=== PATIENT | female | born 1975 | race Caucasian/White ===

== ENCOUNTER 2018-06-08 11:02 | Emergency (ER) | payer BC, SELFPAY ==
[2018-06-08 11:07] VITALS: BP 129/82; PULSE 79; RESP 16; TEMP 36.4; O2SAT 98
--- NOTE | 2018-06-08 11:18 | ED.GENADUL ---
Disposition Clinical Impression: Abscess of vagina Disposition: HOME Condition: Stable Instructions: Abscess (ED) Additional Instructions: Keep area clean and dry. Flush area with water 2-3 times daily. Wear sanitary pad daily. Wear cotton underwear. Apply Neosporin or antibiotic ointment to area 2 times daily. Follow-up with your primary care doctor within the next week as needed. Return to the emergency department with any worsening or new concerning symptoms. Medical Decision Making - Medical Decision Making 42-year-old female who presents with an approximately 4 x 4 mm tender raised flesh-colored papule on the right labial minora located deep medially close to the vaginal opening. This appears consistent with either an infected cyst, abscess, or local reaction that became infected status post an insect bite. This is very small and does not appear consistent with a Bartholin's gland cyst. Patient states her symptoms started after what she thought was a bite after using a naida potty. I explained to patient that as this is located deep within, it would be unlikely that it could be an insect bite but this certainly could be possible and became secondarily infected. There does not appear to be any surrounding induration or fluctuance. I placed approximately 2 cc of lidocaine 1% without epi around the area and placed 2 puncture wounds with 18-gauge needle with minimal amounts of yellow pus drainage. I further expressed serous and bloody drainage and irrigated the area with saline and covered with bacitracin. I encouraged patient to wear cotton breathable underwear and clothing, keep the area clean and dry, irrigate with water and cover with antibiotic ointment 2-3 times daily. She was instructed to follow-up with her primary care doctor next week for reevaluation and return here if worse. History of Present Illness - General Chief complaint: Cellulitis Stated complaint: UNKNOWN Time Seen by Provider: 06/08/18 11:03 Source: patient Mode of arrival: ambulatory Limitations: no limitations - History of Present Illness Initial comments: Patient is a 42-year-old female presents to the ER with complaint of pain in the R vaginal area for the past 2 days. Patient states she was sitting on a naida potty at work 4 days ago when she thought she felt a bite in her vaginal area. States since then she has developed a bump which has become larger and more painful. She denies any difficulty urinating, vaginal discharge, abdominal pain or fever. She has not used any treatment to this area. - Related Data Acetaminophen [Acetaminophen Extra Strength] 1,000 mg PO TID #90 tablet 02/21/18 Ibuprofen 600 mg PO QID PRN #120 tab-cap 02/21/18 Omeprazole 20 mg PO DAILY #30 tab-cap 04/24/18 Pramipexole Di-HCl [Pramipexole Dihydrochloride] 0.125 mg PO ONCE #30 tab-cap 04/24/18 Allergies Allergy/AdvReac Type Severity Reaction Status Date / Time nabumetone Allergy Intermediate swelling,ra Unverified 06/08/18 11:10 sh doxycycline AdvReac Intermediate VOMITING Unverified 06/08/18 11:10 hydrocodone AdvReac Intermediate VOMITING Unverified 06/08/18 11:10 morphine AdvReac Intermediate vomiting Unverified 06/08/18 11:10 Review of Systems Constitutional: denies: chills, fever Eyes: denies: eye pain ENT: denies: ear pain, throat pain, dental pain Respiratory: denies: cough, shortness of breath Cardiovascular: denies: chest pain, dyspnea on exertion Gastrointestinal: denies: abdominal pain, nausea, vomiting Genitourinary: denies: urgency, dysuria, frequency Musculoskeletal: denies: back pain Skin: lesions. denies: rash Neurological: denies: headache, weakness, numbness Past Medical History - Past Medical History Medical history: diabetes (borderline), GERD, hypertension wpw Surgical history: appendectomy, bilateral tubal ligation, other (carpal tunnel release) - Social History Smoking status: current everyday smoker Alcohol use: occasionally Drug use: none General Exam - General Limitations: no limitations General appearance: alert, in no apparent distress - Eye Eye exam: Present: EOMI - Respiratory Respiratory exam: Present: normal lung sounds bilaterally. Absent: respiratory distress, wheezes, rales, rhonchi, stridor - Cardiovascular Cardiovascular Exam: Present: regular rate, normal rhythm. Absent: bradycardia, tachycardia - GI/Abdominal GI/Abdominal exam: Present: soft, normal bowel sounds. Absent: distended, tenderness, guarding, rebound, rigid - External exam: Present: other (There is an approximate 4 x 4 millimeter area of tender raised flesh-colored papule with sebum noted in center located deep medially in the right labia minora. There is no surrounding erythema, fluctuance, induration.) - Neurological Exam Neurological exam: Present: alert, oriented X3 - Psychiatric Psychiatric exam: Present: normal affect - Skin Skin exam: Present: warm, dry, intact Course Vital Signs - 24 hr 06/08/18 11:07 Temperature 97.5 F L Pulse 79 Respiratory 16 Rate Blood Pressure 129/82 Pulse Oximetry 98
== END 2018-06-08 12:09 | disposition home or self-care (01) ==
PROVIDERS: Emergency Provider Physician Assistant; PCP Family Medicine
DX: N76.4 Abscess of vulva (principal); I10 Essential (primary) hypertension; E11.9 Type 2 diabetes mellitus without complications
CPT/HCPCS: 10160

== ENCOUNTER 2018-06-09 10:22 | Emergency (ER) | payer BC, SELFPAY ==
[2018-06-09 10:36] VITALS: BP 145/99; PULSE 85; RESP 16; TEMP 37; O2SAT 98
--- NOTE | 2018-06-09 10:53 | ED.GENADUL ---
Disposition Clinical Impression: Furuncle of vulva Disposition: HOME Condition: Stable Instructions: Furunculosis and Carbunculosis (ED), Abscess Incision and Drainage (GEN) Additional Instructions: Keep area clean and dry. Irrigate the area with water and apply antibiotic ointment and cover with gauze and pad 2 times daily. Wear cotton underwear and pants. Follow-up with your primary care doctor in 1 week for reevaluation. Follow-up with surgery if symptoms persist for removal possible cyst. Return to the emergency department any worsening or new concerning symptoms. Medical Decision Making - Medical Decision Making 42-year-old female who presents for re-evaluation of small furuncle noted in inner labia minora that she has had for the past few days and for which she was seen initially for here yesterday. Yesterday, patient had puncture with an 18-gauge needle to drain the area and small amount of pus was expressed. The area is extremely small and compares to the size of the pea. Yesterday it appeared more c/w a furuncle and today notes no pustule or white discoloration and is mainly raised and skin colored and mildly tender. Overall the area appears improved since yesterday. As there was only a puncture wound placed yesterday in are, the area likely closed and still with inflammation. There is no fluctuance or induration so I doubt that it has filled with pus at this time as it appears overall improved. Patient is concerned that it did appear flat yesterday and is now raised again. She has no fever and appears nontoxic. Explained to patient that this area may be a cyst that may recur until excised. Also explained that this may just be local inflammation that may heal with time. She is requesting that it be opened to help drain. Area was anesthetized with 5 cc of lidocaine 1% without epi. A 3 mm incision was placed in center and bloody drainage was expressed. There was no pus drainage. She admits to improvement of pain. Area was irrigated with normal saline, bacitracin applied, covered with wet-to-dry dressings and an ABD pad. Patient was instructed to follow-up with her primary care doctor and for referral to surgery if worse or if persists. She was instructed to return with any concerns. History of Present Illness - General Chief complaint: Recheck Stated complaint: RECHECK Time Seen by Provider: 06/09/18 10:53 Source: patient Mode of arrival: ambulatory Limitations: no limitations - History of Present Illness Initial comments: Patient is a 42-year-old female who presents for painful lump on the inner vagina for the past few days. Patient was seen here yesterday for same and had puncture with needle with relief. Patient states the area drained until last night when it filled back up again and now has return of pain. She denies any fever, abdominal pain. She applied warm compresses to area yesterday. - Related Data Acetaminophen [Acetaminophen Extra Strength] 1,000 mg PO TID #90 tablet 02/21/18 Ibuprofen 600 mg PO QID PRN #120 tab-cap 02/21/18 Omeprazole 20 mg PO DAILY #30 tab-cap 04/24/18 Pramipexole Di-HCl [Pramipexole Dihydrochloride] 0.125 mg PO ONCE #30 tab-cap 04/24/18 Allergies Allergy/AdvReac Type Severity Reaction Status Date / Time nabumetone Allergy Intermediate swelling,ra Unverified 06/09/18 10:38 sh doxycycline AdvReac Intermediate VOMITING Unverified 06/09/18 10:38 hydrocodone AdvReac Intermediate VOMITING Unverified 06/09/18 10:38 morphine AdvReac Intermediate vomiting Unverified 06/09/18 10:38 Review of Systems Constitutional: denies: chills, fever Eyes: denies: eye pain ENT: denies: ear pain, dental pain Respiratory: denies: cough, shortness of breath Cardiovascular: denies: chest pain, dyspnea on exertion Gastrointestinal: denies: abdominal pain, nausea, vomiting Genitourinary: denies: urgency, dysuria, frequency Musculoskeletal: denies: back pain Skin: lesions. denies: rash Neurological: denies: headache, weakness, numbness Past Medical History - Past Medical History Medical history: diabetes (borderline), GERD, hypertension wpw Surgical history: appendectomy, bilateral tubal ligation, other (carpal tunnel release) - Social History Smoking status: current everyday smoker Alcohol use: occasionally Drug use: none General Exam - General Limitations: no limitations General appearance: alert, in no apparent distress - Eye Eye exam: Present: EOMI - Respiratory Respiratory exam: Absent: respiratory distress - Cardiovascular Cardiovascular Exam: Present: regular rate - External exam: Present: other (Small pea-sized furuncle noted on right inner labia majora. It is approximately 4 x 4 mm. There is no fluctuance. There is induration. There is no white discoloration or pustule noted. No active drainage or bleeding. No surrounding erythema, edema.) Course Vital Signs - 24 hr 06/09/18 10:36 Temperature 98.6 F Pulse 85 Respiratory 16 Rate Blood Pressure 145/99 Pulse Oximetry 98
[2018-06-09 10:59] VITALS: BP 145/99; PULSE 85; RESP 16; TEMP 37; O2SAT 98
== END 2018-06-09 10:59 | disposition home or self-care (01) ==
PROVIDERS: Emergency Provider Physician Assistant; PCP Family Medicine
DX: N76.4 Abscess of vulva (principal); E11.9 Type 2 diabetes mellitus without complications; I10 Essential (primary) hypertension
CPT/HCPCS: 10060

== ENCOUNTER 2018-07-14 22:19 | Emergency (ER) | payer BC, SELFPAY ==
[2018-07-14] VITALS (14 sets, daily range): BP systolic 110–137; BP diastolic 51–83; PULSE 64–87; RESP 11–23; TEMP 36.1; O2SAT 95–99
--- NOTE | 2018-07-14 22:36 | W.ED.GENAD ---
Discharge Plan Disposition Patient Disposition: HOME Condition: Good Discharge Details Chief Complaint: Chest Pain Clinical Impression: Spasm of cervical paraspinous muscle Reason For Visit: SOB Primary Care Provider: Arcelia Elizondo ED Provider: Jak Faulkner Home Meds and New Rx's Prescriptions: New methocarbamol 500 mg tablet 500 mg PO Q6H PRN (Reason: pain and spasm) Qty: 10 RF: 0 No Action No Known Home Meds RF: 0 Discharge Instructions Instructions: Muscle Spasm (ED) Additional Instructions: Home to rest this evening. May use Methocarbamol as needed, as instructed, for muscular pain and spasm. We will ask our care management team to assist in making you a followup appointment in Cardiology clinic for recheck. Return to the ER for recurrent pain, difficulty breathing or any other concerns. Medical Decision Making MDM Narrative Medical decision making narrative: This is a 42-year-old female smoker with a history of Qiwwm-Whtgjleuc-Fybmz syndrome. She states she recent underwent cardiac monitoring and has been referred for further opinion. The patient presented today with hours of right anterior chest pain radiating to her neck is reproducible upon exam. Differential diagnosis is broad including ACS, pulmonary embolism, musculoskeletal discomfort. Patient had IV access established, was placed on practice specialist, referred for laboratory testing including troponin, d-dimer as well as chest x-ray. She was given ketorolac and 0.5 mg Ativan Diagnostic studies are reassuring with unremarkable chest x-ray. Patient's EKG is unchanged. Her troponin and d-dimer are negative. Patient was observed further for 3 hours on the monitor with repeat troponin obtained. 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 She has not had complaints of tachycardia, palpitations or syncope. Do not feel she requires admission for evaluation of underlying structural heart disease. Medical Records Medical records reviewed: Yes I reviewed the patient's medical records. Reviewed Holter monitor report from May 13. Shows short [place] interval with delta wave present, likely representing sinus rhythm with short [place]. No evidence of SVT, VT, or A. fib. Lab Data Lab results reviewed: Yes I reviewed the patient's lab results. ECG Data Attestation: I personally reviewed and interpreted this ECG (s) as follows: Prior ECG tracings: available for review Interpretation: Sinus rhythm, rate of 80, short [place], probable delta wave present. The QRS is wide with intraventricular conduction delay. There is repolarization abnormalities of ST segments that are unchanged versus comparison dated November 2007 HPI - General Adult General Mode of arrival: ambulatory. Date/Time Provider Initiated Documentation: 07/14/18 22:19. Limitations to Documentation: no limitations. Information obtained by: patient. History of Present Illness 42 year old F presents to the emergency department with the chief complaint of Chest pain, described as moderate, Quality is described as aching, and is localized to the chest and right. Patient neck. Patient started experiencing this hour(s) and it has been constant. No relieving factors improve symptom(s), No exacerbating factors reported . Patient notes cough. HPI Narrative: This is a 42-year-old female smoker who states that while cooking dinner this evening she developed right anterior sharp chest pain that radiates to her neck. She has a cough with production of sputum that she states unchanged. She has not had a fever. She has not had any lower extremity pain or swelling. Related Data Home Medications Medication Instructions Recorded Confirmed Unknown [No Known Home Meds] 07/14/18 07/14/18 Previous Rx's Medication Instructions Recorded methocarbamol 500 mg PO Q6H PRN #10 tab 07/15/18 Allergies Allergy/AdvReac Type Severity Reaction Status Date / Time nabumetone Allergy Intermediate swelling,ra Unverified 07/14/18 22:32 sh doxycycline AdvReac Intermediate VOMITING Unverified 07/14/18 22:32 hydrocodone AdvReac Intermediate VOMITING Unverified 07/14/18 22:32 morphine AdvReac Intermediate vomiting Unverified 07/14/18 22:32 General Stated Complaint: Chest Pain MARGO: 2 Review of Systems Review of Systems 8 systems reviewed and otherwise negative [facility] Family History Mother Diabetes Essential hypertension Hyperlipidemia Father Diabetes Alcohol abuse Depression Heart disease Hyperlipidemia Neoplasm Cerebrovascular accident Brother Diabetes Essential hypertension Depression Grandfather Heart disease Cerebrovascular accident Grandfather Diabetes Essential hypertension Heart disease Hyperlipidemia Grandmother Diabetes Grandmother Diabetes Essential hypertension Heart disease Maternal Aunt Neoplasm Sister No problems noted. Sister Depression Brother Diabetes Hyperlipidemia Daughter No problems noted. MATERNAL HISTORY Neoplasm PATERNAL HISTORY Neoplasm Social History Smoking/Tobacco Use Status: Former Tobacco Use Surgical History Appendectomy Cervical Procedure Endometrial Ablation Ligation of fallopian tube Open Carpal Tunnel release Ulnar Nerve Transposition Exam Narrative Exam Narrative: GEN: awake, alert, oriented 3. Pleasant, well groomed, interactive. Mildly anxious. HEAD: Normocephalic, atraumatic ENT: Mucous membranes moist, oropharynx unremarkable, External ear exam unremarkable EYES: PERRL, EOMI NECK: Full ROM, no LINDA, no menigismus. Right anterior sternocleidomastoid is tender and in mild spasm peer CHEST/RESP: Right anterior chest wall tender. No rash, clear to auscultation bilateral, no wheeze/rhonchi/rales CARDIOVASCULAR: RRR, no murmur, rub siomara. 2+ Rad pulse bilateral ABDOMEN: Soft, nontender, no mass. +Bowel sounds EXT: Full ROM, no edema, no rash Neuro: Grossly normal neurologic exam, conversant, interactive. Psych: Speech fluent, thoughts congruent, affect anxious Course Vital Signs Temperature 36.1 C L 07/14/18 22:25 Pulse 87 07/14/18 22:25 Respiratory Rate 15 07/14/18 22:25 Blood Pressure 137/80 07/14/18 22:25 Pulse Oximetry 98 07/14/18 22:25 Temperature 36.1 C L 07/14/18 22:25 Pulse 87 07/14/18 22:25 Respiratory Rate 14 07/14/18 22:27 Blood Pressure 137/80 07/14/18 22:25 Pulse Oximetry 98 07/14/18 22:25
--- NOTE | 2018-07-14 22:40 | ED.GENADUL_ITS ---
Discharge Plan Disposition Patient Disposition: HOME Condition: Good Discharge Details Chief Complaint: Chest Pain Clinical Impression: Spasm of cervical paraspinous muscle Reason For Visit: SOB Primary Care Provider: Arcelia Elizondo ED Provider: Jak Faulkner Home Meds and New Rx's Prescriptions: New methocarbamol 500 mg tablet 500 mg PO Q6H PRN (Reason: pain and spasm) Qty: 10 RF: 0 No Action No Known Home Meds RF: 0 Discharge Instructions Instructions: Muscle Spasm (ED) Additional Instructions: Home to rest this evening. May use Methocarbamol as needed, as instructed, for muscular pain and spasm. We will ask our care management team to assist in making you a followup appointment in Cardiology clinic for recheck. Return to the ER for recurrent pain, difficulty breathing or any other concerns. Medical Decision Making MDM Narrative Medical decision making narrative: This is a 42-year-old female smoker with a history of Modee-Bljjtptmx-Ztgwh syndrome. She states she recent underwent cardiac monitoring and has been referred for further opinion. The patient presented today with hours of right anterior chest pain radiating to her neck is reproducible upon exam. Differential diagnosis is broad including ACS, pulmonary embolism, musculoskeletal discomfort. Patient had IV access established, was placed on complaint inspector, referred for laboratory testing including troponin, d-dimer as well as chest x-ray. She was given ketorolac and 0.5 mg Ativan Diagnostic studies are reassuring with unremarkable chest x-ray. Patient's EKG is unchanged. Her troponin and d-dimer are negative. Patient was observed further for 3 hours on the monitor with repeat troponin obtained. 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 She has not had complaints of tachycardia, palpitations or syncope. Do not feel she requires admission for evaluation of underlying structural heart disease. Medical Records Medical records reviewed: Yes I reviewed the patient's medical records. Reviewed Holter monitor report from May 13. Shows short [place] interval with delta wave present, likely representing sinus rhythm with short [place]. No evidence of SVT, VT, or A. fib. Lab Data Lab results reviewed: Yes I reviewed the patient's lab results. ECG Data Attestation: I personally reviewed and interpreted this ECG (s) as follows: Prior ECG tracings: available for review Interpretation: Sinus rhythm, rate of 80, short [place], probable delta wave present. The QRS is wide with intraventricular conduction delay. There is repolarization abnormalities of ST segments that are unchanged versus comparison dated November 2007 HPI - General Adult General Mode of arrival: ambulatory . Date/Time Provider Initiated Documentation: 07/14/18 22:19 . Limitations to Documentation: no limitations . Information obtained by: patient . History of Present Illness 42 year old F presents to the emergency department with the chief complaint of Chest pain, described as moderate, Quality is described as aching, and is localized to the chest and right. Patient neck. Patient started experiencing this hour(s) and it has been constant. No relieving factors improve symptom(s), No exacerbating factors reported . Patient notes cough. HPI Narrative: This is a 42-year-old female smoker who states that while cooking dinner this evening she developed right anterior sharp chest pain that radiates to her neck. She has a cough with production of sputum that she states unchanged. She has not had a fever. She has not had any lower extremity pain or swelling. Related Data Home Medications Medication Instructions Recorded Confirmed Unknown [No Known Home Meds] 07/14/18 07/14/18 Previous Rx's Medication Instructions Recorded methocarbamol 500 mg PO Q6H PRN #10 tab 07/15/18 Allergies Allergy/AdvReac Type Severity Reaction Status Date / Time nabumetone Allergy Intermediate swelling,ra Unverified 07/14/18 22:32 sh doxycycline AdvReac Intermediate VOMITING Unverified 07/14/18 22:32 hydrocodone AdvReac Intermediate VOMITING Unverified 07/14/18 22:32 morphine AdvReac Intermediate vomiting Unverified 07/14/18 22:32 General Stated Complaint: Chest Pain MARGO: 2 Review of Systems Review of Systems 8 systems reviewed and otherwise negative [facility] Family History Mother Diabetes Essential hypertension Hyperlipidemia Father Diabetes Alcohol abuse Depression Heart disease Hyperlipidemia Neoplasm Cerebrovascular accident Brother Diabetes Essential hypertension Depression Grandfather Heart disease Cerebrovascular accident Grandfather Diabetes Essential hypertension Heart disease Hyperlipidemia Grandmother Diabetes Grandmother Diabetes Essential hypertension Heart disease Maternal Aunt Neoplasm Sister No problems noted. Sister Depression Brother Diabetes Hyperlipidemia Daughter No problems noted. MATERNAL HISTORY Neoplasm PATERNAL HISTORY Neoplasm Social History Smoking/Tobacco Use Status: Former Tobacco Use Surgical History Appendectomy Cervical Procedure Endometrial Ablation Ligation of fallopian tube Open Carpal Tunnel release Ulnar Nerve Transposition Exam Narrative Exam Narrative: GEN: awake, alert, oriented 3. Pleasant, well groomed, interactive. Mildly anxious. HEAD: Normocephalic, atraumatic ENT: Mucous membranes moist, oropharynx unremarkable, External ear exam unremarkable EYES: PERRL, EOMI NECK: Full ROM, no LINDA, no menigismus. Right anterior sternocleidomastoid is tender and in mild spasm peer CHEST/RESP: Right anterior chest wall tender. No rash, clear to auscultation bilateral, no wheeze/rhonchi/rales CARDIOVASCULAR: RRR, no murmur, rub siomara. 2+ Rad pulse bilateral ABDOMEN: Soft, nontender, no mass. +Bowel sounds EXT: Full ROM, no edema, no rash Neuro: Grossly normal neurologic exam, conversant, interactive. Psych: Speech fluent, thoughts congruent, affect anxious Course Vital Signs Temperature 36.1 C L 07/14/18 22:25 Pulse 87 07/14/18 22:25 Respiratory Rate 15 07/14/18 22:25 Blood Pressure 137/80 07/14/18 22:25 Pulse Oximetry 98 07/14/18 22:25 Temperature 36.1 C L 07/14/18 22:25 Pulse 87 07/14/18 22:25 Respiratory Rate 14 07/14/18 22:27 Blood Pressure 137/80 07/14/18 22:25 Pulse Oximetry 98 07/14/18 22:25
[2018-07-14 22:48] LABS: Abs Immature Grans 0.03 k/cumm (0.0-0.09); Absolute Basophil Count 0.03 k/cumm (0.0-0.2); Absolute Eosinophil Count 0.24 k/cumm (0.0-0.7); Absolute Lymphocyte Count 3.26 k/cumm (1.2-3.4); Absolute Monocyte Count 0.63 k/cumm (0.11-0.7); Basophils % 0.3; Eosinophils % 2.2; HCT 39.7 % (36.0-46.0); HGB 13.6 g/dL (12.0-15.5); Immature Grans % 0.3; Lymphocytes % 29.7; Mean Corp. HGB Concentration 34.3 g/dL (32.0-36.0); Mean Corpuscular Hemoglobin 30.6 pg (27.0-33.0); Mean Corpuscular Volume 89.4 fL (80-95); Mean Platelet Volume 10.8 fL (8.0-11.0); Monocytes % 5.7; Neutrophils % 61.8; Platelet Count 238 x1000/uL (130-400); RBC 4.44 m/cumm (4.00-5.20); RBC Distribution Width 13.2 % (11.7-14.6); White Blood Cell Count 10.99 k/cumm (4.4-10.8)
[2018-07-14] MEDS: Normal Saline 1,000 ML 125 ML IV (22:58)
[2018-07-14] MEDS: LORazepam 2 MG/ML VIAL 0.5 MG IVP (22:58)
[2018-07-14 22:59] LABS: ALT 29 U/L (12-78); AST 18 U/L (15-37); Albumin 3.6 g/dL (3.4-5.0); Alkaline Phosphatase 58 U/L (46-116); Anion Gap 10.8 mmol/L (3-11); BUN 17 mg/dL (7-18); Bilirubin, Total 0.2 mg/dL (0.2-1.0); CO2 25.2 mmol/L (21.0-32.0); CREATININE 0.93 mg/dL (0.55-1.02); Calcium 9.3 mg/dL (8.5-10.1); Chloride 103 mmol/L (98-107); Glucose 141 mg/dL (70-100); Sodium 139 mmol/L (136-145); Total Protein 7.6 g/dL (6.4-8.2)
[2018-07-14 23:02] LABS: Absolute Neutrophil Count 6.79 k/cumm (1.2-6.7); Troponin I < 0.02 ng/mL (0.00-0.06)
[2018-07-14] MEDS: Normal Saline Flush 10 ML SYR IVP (23:05)
--- NOTE | 2018-07-14 23:09 | DI.RAD_ITS ---
SYMPTOM/DIAGNOSIS: RT CHEST PAIN PA AND LATERAL CHEST: Comparison is made with 28 September 2017. The cardiac and mediastinal contours have a normal appearance. The lungs are suboptimally inflated but appear clear. No infiltrate or effusion is seen. There is no evidence of pneumothorax. IMPRESSION: No acute abnormality.
[2018-07-14 23:17] LABS: D-Dimer 232 ng/mlFEU (<500)
--- NOTE | 2018-07-14 23:54 | DI.VRAD_ITS ---
EXAM: XR Chest, 2 Views CLINICAL HISTORY: 42 years old, female; Signs and symptoms; Other: Right chest pain TECHNIQUE: Frontal and lateral views of the chest. COMPARISON: CR - CHEST 2 VIEWS PA,LAT 09/28/2017 11:06 AM FINDINGS: Lungs: Low lung volumes. No airspace consolidation. Pleural space: No focal pathology. No pneumothorax. Heart: No focal pathology. No cardiomegaly. Mediastinum: Unremarkable. Bones/joints: Unremarkable. IMPRESSION: Negative low volume study. Dictated and Authenticated by: Lalitha Platt MD. Ordering:STAR FREIRE MD
[2018-07-15] VITALS (20 sets, daily range): BP systolic 90–110; BP diastolic 47–67; PULSE 59–90; RESP 15–26; O2SAT 95–98
[2018-07-15] MEDS: Ketorolac 30 MG/ML VIAL IVP
[2018-07-15 00:13] LABS: Bilirubin Negative (Negative); Blood Negative (Negative); Clarity Clear; Glucose Negative (Negative); Ketones Negative (Negative); Leukocyte Esterase Negative (Negative); Nitrite Negative (Negative); Specific Gravity 1.015 (1.005-1.025)
[2018-07-15 01:36] LABS: Troponin I < 0.02 ng/mL (0.00-0.06)
[2018-07-15] MEDS: Methocarbamol 500 MG TAB PO (01:51)
--- NOTE | 2018-07-15 09:55 | CMPROGNOTE_ITS ---
Care Management Progress Note 07/15/18-Pt seen on 07/14/18 in ED for chest pain . Was seen by Dr. Carmine Faulkner. F ?u requested for Cardiology. CM contacted Cardiology and spoke with Jael who is working pt into schedule at the end of this month as they are booked. A referral has been sent to Pt's PCP, Wil Turner at [facility] for f/u this week.
== END 2018-07-15 02:23 | disposition home or self-care (01) ==
LOC: ER 07-15 02:06
PROVIDERS: Emergency Provider Emergency Medicine; PCP Family Medicine
DX: M62.838 Other muscle spasm (principal); I10 Essential (primary) hypertension; I45.6 Pre-excitation syndrome
CPT/HCPCS: 36415; 80053; 93005; 96361; 96374; 96375; 99285; 71046; 81003; 83735; 84484; 85025; 85379; 93010; 99284; J1885; J2060

== ENCOUNTER 2018-10-15 15:52 | Outpatient (CLI) | payer BC, SELFPAY ==
[2018-10-15 16:17] LABS: Abs Immature Grans 0.01 k/cumm (0.0-0.09); Absolute Basophil Count 0.03 k/cumm (0.0-0.2); Absolute Eosinophil Count 0.13 k/cumm (0.0-0.7); Absolute Lymphocyte Count 3.16 k/cumm (1.2-3.4); Absolute Monocyte Count 0.47 k/cumm (0.11-0.7); Absolute Neutrophil Count 3.85 k/cumm (1.2-6.7); Basophils % 0.4; Eosinophils % 1.7; HCT 44.3 % (36.0-46.0); HGB 15.2 g/dL (12.0-15.5); Immature Grans % 0.1; Lymphocytes % 41.3; Mean Corp. HGB Concentration 34.3 g/dL (32.0-36.0); Mean Corpuscular Hemoglobin 30.4 pg (27.0-33.0); Mean Corpuscular Volume 88.6 fL (80-95); Mean Platelet Volume 10.2 fL (8.0-11.0); Monocytes % 6.1; Neutrophils % 50.4; Platelet Count 294 x1000/uL (130-400); RBC Distribution Width 12.9 % (11.7-14.6); White Blood Cell Count 7.65 k/cumm (4.4-10.8)
[2018-10-15 16:19] LABS: Bilirubin Negative (Negative); Blood Trace-intact (Negative); Clarity Clear; Glucose Negative (Negative); Ketones Negative (Negative); Leukocyte Esterase Negative (Negative); Nitrite Negative (Negative); Specific Gravity 1.015 (1.005-1.025); pH 7.5 (5-8)
[2018-10-15 16:30] LABS: Bacteria Moderate HPF (Negative); C & S Indicated? No/Sq. Contamination; Casts Negative LPF (Negative); Crystals Negative HPF (Negative); Epithelial Cells Many HPF (Negative); Mucus Negative (Negative)
[2018-10-15 17:35] LABS: ALT 29 U/L (12-78); AST 20 U/L (15-37); Albumin 4.1 g/dL (3.4-5.0); Alkaline Phosphatase 58 U/L (46-116); Anion Gap 9.6 mmol/L (3-11); BUN 13 mg/dL (7-18); Bilirubin, Total 0.3 mg/dL (0.2-1.0); CO2 27.4 mmol/L (21.0-32.0); CREATININE 0.91 mg/dL (0.55-1.02); Calcium 9.6 mg/dL (8.5-10.1); Chloride 102 mmol/L (98-107); Glucose 96 mg/dL (70-100); Potassium 4.2 mmol/L (3.5-5.1); Sodium 139 mmol/L (136-145); Total Protein 7.7 g/dL (6.4-8.2)
[2018-10-15 17:43] LABS: TSH (W/Ref FT4) 1.19 uIU/mL (0.358-3.74)
== END 2018-10-15 16:12 ==
PROVIDERS: PCP Family Medicine; Visit Provider Family Medicine
DX: E67.1 Hypercarotenemia (principal)
CPT/HCPCS: 36415; 80053; 85027; 81003; 81015; 84443; 85025

== ENCOUNTER 2019-04-08 13:13 | Outpatient (CLI) | payer OTHER, SELFPAY ==
--- NOTE | 2019-04-08 09:30 | DI.COMBO_ITS ---
SYMPTOM/DIAGNOSIS: RT BREAST LUMP MAMMOGRAM AND RIGHT BREAST ULTRASOUND: Mammograms were interpreted according to the usual protocol including computer analysis with CAD system, tomosynthesis and C view imaging. Today's mammogram and right breast ultrasound are interpreted in conjunction. The patient reportedly has a questionable palpable abnormality of the upper outer quadrant of the right breast. Mammography shows heterogeneously dense breasts. No mass or clumped microcalcification is seen. Breast ultrasound shows no evidence of a mass or cyst in the region in question in the upper outer quadrant of the right breast. CONCLUSION: No specific evidence of malignancy at this time. Negative mammogram and ultrasound do not entirely exclude the possibility of malignancy and should not preclude biopsy of any clinically suspicious breast lesion. Category 1. Breast density, Category C. MQSA ASSESSMENT OF FINDINGS: Negative. Category 1. Patient will receive a letter notifying them of these results. Bi-RADS category C. The breasts are heterogeneously dense, which may obscure small masses.
== END 2019-04-08 13:33 ==
PROVIDERS: PCP Family Medicine; Visit Provider Family Medicine
DX: N63.11 Unspecified lump in the right breast, upper outer quadrant (principal)
CPT/HCPCS: 76642; 77062; 77066; G0279

== ENCOUNTER 2019-09-21 18:37 | Emergency (ER) | payer OTHER, SELFPAY ==
--- NOTE | 2019-09-21 18:40 | ED.GENADUL_ITS ---
Discharge Plan Disposition Patient Disposition: HOME Condition: Good Discharge Details Chief Complaint: Cellulitis Clinical Impression: Visit for wound check Primary Care Provider: Arcelia Elizondo ED Provider: Roberto Hoffman Home Meds and New Rx's Prescriptions: No Action citalopram 20 mg tablet 20 mg PO DAILY Qty: 30 RF: 6 Discharge Instructions Additional Instructions: At this time there is no evidence of significant infection. The black is from the silver nitrate cauterization that they did after the procedure to stop the bleeding. If you notice any significant redness, firmness in the skin, warmth, drainage, or any of the signs of infection that we talked about, return immediately for reassessment. If you notice any worsening of your symptoms, or any new symptoms such as vomiting, diarrhea, fever, chills, shortness of breath, chest pain, numbness, weakness, or fainting , please return immediately to the emergency department for reevaluation. Please follow up with your primary care and Dr. Swanson's office as soon as possible for reassessment and reevaluation. As always, it was a pleasure participating in your medical care today. Referrals: Arcelia Elizondo MD [Primary Care Provider] - Medical Decision Making This is a 43-year-old female who presents for postop wound check. Betsy goode had a lesion surgically shaved off by Dr. Swanson 3 days ago. Chemical cautery was used postoperatively to stop any bleeding. Reviewed the procedure notes from Dr. Swanson's office reveals no complications for the procedure or other abnormalities. Patient states that there is been some mild swelling and black and that she noticed over the last 3 days she was concerned that this may be infection. Physical exam demonstrates mild tattooing peripheral to the surgical incision site, then the small black eschar at the site of the excision itself. No evidence of fluctuance, drainage, or other significant abnormality. No redness, warmth, induration. Signs and symptoms are consistent with normal postop healing and clinically inconsistent with cellulitis, or infection. I spent a long time discussing with the patient concerning red flags which to return, the healing process postoperatively for this, and the importance of close follow-up with her ENT doctor Dr. Swanson. Discussed the recommendations for continued antibiotic ointment, and close monitoring. I have extensively reviewed the treatment plan and discharge instructions with the patient. I have addressed all patient concerns at this time. The patient was made aware of what symptoms to monitor for that would warrant a return to the emergency department. Discussed the plan with the patient, they demonstrate verbal understanding and agreement with our assessment and plan at this time. HPI General Date/Time Provider Initiated Documentation: 09/21/19 18:38 . HPI Narrative: This is a 43-year-old female who presents today for evaluation of wound check. 3 days ago she was at Dr. Swanson's office when he surgically removed a cyst from her right upper lip. Since then she noticed that there was a black spot which she has been picking at, and she felt that there is mild swelling mild redness. She denies any fever or chills. She denies any other complaints. She presents for evaluation of this. She denies any drainage. She denies any numbness tingling weakness. No other modifying factors. She is not on any antibiotics. She has not been taking any other medications. Related Data Home Medications Medication Instructions Recorded Confirmed citalopram 20 mg tablet 20 mg PO DAILY #30 tab 09/03/19 09/21/19 Previous Rx's Medication Instructions Recorded citalopram 20 mg tablet 20 mg PO DAILY #30 tab 09/03/19 Allergies Allergy/AdvReac Type Severity Reaction Status Date / Time nabumetone Allergy Intermediate swelling,ra Verified 09/21/19 18:45 sh doxycycline AdvReac Intermediate VOMITING Verified 09/21/19 18:45 hydrocodone AdvReac Intermediate VOMITING Verified 09/21/19 18:45 morphine AdvReac Intermediate vomiting Verified 09/21/19 18:45 General MARGO: 2 Review of Systems All systems reviewed & are unremarkable except as noted in HPI and below [facility] Medical History (Updated 04/01/19 @ 12:10 by Parker Clark) Atopic dermatitis (Acute) Surgical History (Updated 04/01/19 @ 12:10 by Parker Clark) Abnormal patient-activated cardiac event monitor (Acute) Internal Retail Business Analyst (NOT defibrillator or pacer) placed [facility] [place] 11/08/18 Appendectomy Cervical Procedure ovarian cyst-right Endometrial Ablation Ligation of fallopian tube Open Carpal Tunnel release 02/2018 (L) Ulnar Nerve Transposition 09/2017 Social History (Updated 04/08/19 @ 10:18 by Dorian Adame) Smoking/Tobacco Use Status: Current-Occasional Tobacco Type: cigarettes Tobacco: How many years used: 20 Quit status: considering quitting Second Hand Exposure: No Alcohol Intake: current Alcohol Intake frequency: holidays/special occasions only Alcohol type: hard liquor Drug use: Never Substance use type: does not use Caregiver/Support person: No Household members: spouse and other Details: Niece Communication Needs: None Do you need help understanding health information?: Never 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 Pets and animals: Yes Pets and animals: dog(s) Sexually active: No Do you think of yourself as: straight/heterosexual Current gender identity: female What is your relationship status?: How often do you talk on the phone with friends or family?: three or more times per week How often do you get together with friends or relatives?: decline to answer How often do you attend yazdanism or christianity services?: decline to answer Do you belong to any clubs or organized social groups?: no Panel score (0-1 are the most socially isolated patients): 2 What type of physical activity do you participate in: none and walking Duration: > 90 minutes/day Frequency: daily Tessie/Alevism: Buddhism Special tessie needs: No Seatbelt use: always Helmet use: Yes Helmet use: sometimes Drive intox or ride w/intox dairy 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 3.ENT: Atraumatic external nose and ears. Moist MM. Neck: Symmetric, trachea midline, No thyromegaly. Patient's right upper lip demonstrates a postoperative site appears to be well-healing. No surrounding erythema, no fluctuance, no ed irina or induration. No significant swelling. Evaluation from inside lip shows no evidence of abnormality leakage or drainage. The lesion is roughly 1 cm x 0.5 cm in diameter. There is a central black eschar secondary to chemical cauterization. The previous black tattooing he has been removed secondary to picking by the patient. No other abnormalities. No evidence of cellulitis abscess or infection. 4.CVS: +S1/S2, No murmurs or gallops. Peripheral pulses 2+ and equal in all extremities. Brisk capillary refill in all extremities. 5.RESP: Unlabored respiratory effort. Clear to auscultation bilaterally. No wheezes rales or rhonchi 6.GI: Soft, Nontender/Nondistended, No hepatosplenomegaly. No guarding or rebound. 7.MSK: Normocephalic/Atraumatic, Extremities w/o deformity or ttp No cyanosis or clubbing, Normal movement of all extremities 8.Skin: Warm, Dry. Please see ENT 9.Neuro: schedule supervisor II-XII grossly intact. Sensation grossly intact, no focal neurologic deficits. 10.Psych: (AAO) x3. Appropriate mood and affect
[2019-09-21 18:41] VITALS: BP 134/70; PULSE 74; RESP 16; TEMP 36.7; O2SAT 99
[2019-09-21 19:14] VITALS: PULSE 74; RESP 16; O2SAT 99
== END 2019-09-21 19:15 | disposition home or self-care (01) ==
PROVIDERS: Emergency Provider Student in an Organized Health Care Education/Training Program; PCP Family Medicine
DX: L03.211 Cellulitis of face (principal); Z98.890 Other specified postprocedural states
CPT/HCPCS: 99281

== ENCOUNTER 2019-12-02 08:05 | Outpatient (CLI) | payer OTHER, SELFPAY | END 2019-12-02 08:25 | PROVIDERS: PCP Family Medicine; Visit Provider Internal Medicine Cardiovascular Disease | DX: I45.6 Pre-excitation syndrome (principal) | CPT/HCPCS: 93005; 93010 ==

== ENCOUNTER 2019-12-30 01:26 | Outpatient (CLI) | payer OTHER, SELFPAY ==
--- NOTE | 2019-12-30 08:00 | ETT_ITS ---
APPROVED REPORT Exam: Exercise Treadmill Patient Location: Out-Patient Room/Bed: Stress Nurse: Shena Hope RN BMI: 30.66 Baseline Rhythm: Sinus Rhythm Indications: Patient states she is doing stress test today because the doctors want to see if it will set of WPW syndrome. Medical History Medical History: WPW Syndrome, Obesity , GERD Cardiac Medications: None, Allergies: Nabumetone, Doxycycline, Hydrocodone, Morphine. Cardiac Risk Factors: FHX of CAD, Smoking Previous Cardiac Procedures: Ablation X2=failed Pretest Chest Pain Characteristics: No chest pain Exercise History: Physically active Physical Disabilities: None Lung Sounds: Clear to auscultation Heart Sounds: Regular Stress Test Details Test: Exercise stress testing was performed using a Jong protocol. Rest Stress HR Resting HR Supine: 67 bpm Max Heart Rate (APMHR): 178 bpm Resting HR Standin bpm Target HR (85% APMHR): 151 bpm Max HR Achieved: 158 bpm % of APMHR: 88 HR response to stress: Normal HR response to stress BP Resting BP Supine: 112/70 mmHg Resting BP Standin/80 mmHg Max BP: 182/84 mmHg BP response to stress: Normal blood pressure response to stress. ECG Resting ECG: Sinus Rhythm Comment: Delta Wave seen in V1 and V2. Brief episode of LBBB that resolved prior to exercise. Stress ECG: none ST Change: none Arrhythmia: none Comment: Deelta wave noted throughout Recovery ECG: Sinus Rhythm Recovery ST Change: Normal Recovery Arrhythmia: none Comment: Brief episode of LBBB during recovery. Clinical Reason for Termination: Patient felt like her breathing was shut off--she knows this is her WPW sympt oms Stress Symptoms: None Exercise duration: 6 min30 sec Highest Stage Reached: Stage 3: 3.4 mph at 14% grade. Exercise capacity: 7.81 METs Functional Capacity: Mildly deminished capacity Stress ECG Conclusion 1. And exercised for 6 minutes (8 METS). Exercise was stopped due to fatigue. Rate-pressure product was 28,000. 2. The patient had a delta wave present at baseline and throughout exercise (notably in V1/V2). Ther e were no significant arrhythmias. 3. There was a short episode of left bundle branch block which occurred at heart rates in the 70s and 80s. This happened both pre-and post exercise but not during exercise. 4. There is no evidence of ischemia. 5. The Bowser Score (6) estimates an annual cardiovascular mortality of 0% and a five year survival of 95%. Using the Bowser Score there is a low probability of any angiographic coronary disease. Protocol Used: Jong Protocol Stress Test Summary STAGE Time (mins) Speed (mph) Grade (%) HR BP SYMPTOMS METS Supine 67 112/70 Standing 82 114/80 1 3 1.7 10 117 148/82 4.6 2 6 2.5 12 143 182/84 7 3 9 3.4 14 10.2 4 12 4.2 16 12.9 5 15 5.0 18 17.2 1 min recovery 132 162/68 3 min recovery 90 120/80 6 min recovery 81 120/80 9 min recovery 83 112/82 12 min recovery 83 120/82 15 min recovery 83 130/80
== END 2019-12-30 01:46 ==
PROVIDERS: PCP Family Medicine; Visit Provider Internal Medicine Cardiovascular Disease
DX: I45.6 Pre-excitation syndrome (principal)
CPT/HCPCS: 93017

== ENCOUNTER 2020-01-14 04:19 | Outpatient (CLI) | payer OTHER, SELFPAY ==
--- NOTE | 2020-01-14 | PFT_ITS ---
PULMONARY FUNCTION TEST REPORT Patient - Marlena Meza DATE OF SERVICE January 14, 2020 REQUESTING PROVIDER Arcelia Elizondo M.D. INTERPRETATION OF STUDY Spirometry shows no evidence of obstructive airways disease. No bronchodilator response. LUNG VOLUMES - Lung volumes show no evidence of restriction. DIFFUSION CAPACITY- Mildly reduced even when corrected to alveolar volume. AIRWAY RESISTANCE Normal. IMPRESSION Isolated mild diffusion defect. This can represent early developing interstitial lung disease or pulmonary hypertension, therefore clinical correlation recommended. Laura Wiggins M.D. Imelda DT 01/22/20
[2020-01-14] MEDS: Inhaler, Assist Device 1 EACH MC (13:59)
[2020-01-14] MEDS: Albuterol HFA 18 GM 200 PUFF INH IH (14:04)
== END 2020-01-14 04:39 ==
PROVIDERS: PCP Family Medicine; Visit Provider Family Medicine
DX: R07.89 Other chest pain (principal); R06.09 Other forms of dyspnea; F17.210 Nicotine dependence, cigarettes, uncomplicated
CPT/HCPCS: 94060; 94726; 94729

== ENCOUNTER 2020-04-20 09:36 | Emergency (ER) | payer OTHER, SELFPAY ==
[2020-04-20 09:42] VITALS: BP 164/83; PULSE 95; TEMP 36.9; O2SAT 97
--- NOTE | 2020-04-20 10:34 | W.ED.GENAD ---
Discharge Plan Disposition Patient Disposition: HOME Condition: Stable Discharge Details Chief Complaint: RashLesion Clinical Impression: Rash Primary Care Provider: Arcelia Elizondo ED Provider: Carolina Reeves Home Meds and New Rx's Prescriptions: New hydroxyzine pamoate [Vistaril] 25 mg capsule 25 mg PO TID PRNQty: 10 RF: 0 No Action albuterol sulfate 90 mcg/actuation HFA aerosol inhaler 2 puff IH QID PRN (Reason: shortness of breath or wheezing) Qty: 18 RF: 6 nicotine 21 mg/24 hr patch 24 hour 1 patch TD DAILY Qty: 28 RF: 1 nicotine (polacrilex) 2 mg lozenge 2 mg BC Q6H PRN (Reason: nicotine cravings) Qty: 27 RF: 2 clotrimazole [Lotrimin AF (clotrimazole)] 1 % Cream 1 applic TOPICAL TID RF: 0 Discharge Instructions Instructions: Acute Rash (ED) Additional Instructions: Continue clotrimazole previously prescribed. Use Vistaril for itching in place of Benadryl as discussed specifically consider using at night this will cause drowsiness. Follow-up with your primary care doctor this week for reevaluation. Lyme testing is pending. Return to the emergency room for any worsening, concerns or alarming symptoms sooner if needed Medical Decision Making Is a 44-year-old patient presenting with a rash for the last 3 weeks. Patient reports an initial spot noted in the right anterior chest she has subsequently developed multiple much smaller areas through the trunk both anteriorly and posteriorly over the last 3 weeks. Patient reports predominant symptom is itching. Patient has tried Benadryl without relief. Patient denies any other obvious concerns or complaints. Patient denies any fevers or chills. Patient does report increase in stress in the last week as her father and she had to fly to [place] to participate in the . Patient is due to have coded testing. Patient has no respiratory complaints. No malaise. Has chronic headaches which are unchanged. Patient does report mild joint pain but again has traveled recently and has been dealing with significant stress. Patient does report a tick bite which she identified as a dog tick which was very minimally attached. Patient denies any other tick bites. Discussed STDs and patient has no concern of syphilis single partner, . Patient denies any other concerns or complaints. Differential diagnosis includes tinea, Lyme with EM rash, pityriasis rosea and significantly less likely syphilis. We will plan to obtain Lyme testing. Did offer antibiotic although patient does have a noted doxycycline reaction for which she vomits. Would prefer to hold on doxycycline at this time pending test results. Patient has previously been prescribed clotrimazole cream which she continues to use and did begin only 3 days ago. Will provide Atarax for relief of itching. Offered syphilis testing patient declines. Patient stable and appropriate for discharge. Patient feels comfortable plan of care. Patient recommended follow-up with PCP this week for reevaluation. Patient agrees with this plan of care. The patient was stable and requested discharge. Prior to discharge, my usual and customary return precautions were reviewed with the patient - this included follow-up instructions and reasons to return to the Emergency Department if conditions worsens, does not improve as expected, or other new concerns arise. HPI General Date/Time Provider Initiated Documentation: 04/20/20 09:59. HPI Narrative: This is a 44-year-old patient presenting the emergency room for complaints of rash. Patient reports onset of rash for the last 3 weeks. Patient reports rash is notably itchy. Initial spot noted in the right trunk anteriorly which continues to increase in size. Patient reports several smaller lesions on the trunk. Patient reports these areas are itchy. Patient denies fever, chills, nausea, vomiting. Patient reports she did call her PCP described a rash today sent prescription for clotrimazole which she began in the last 3 days. Patient does report some fading of the largest lesion since use of topical medication. Patient denies ill feeling. She does report chronic headaches which are unchanged. Patient does describe mild joint pain. Patient does report she did have a tick bite which she describes as a dog tick approximately 3 weeks ago near site of the initial rash. Patient again denies ill feeling or fevers. Patient does report mild fatigue and significant increase in stress recently as she lost her father this week and needed to fly to [place] for cremation. Patient is eating and drink without difficulty. Denies any changes in bowels or urination. No dysuria, urgency or frequency of urination. Denies any other obvious exposures. No recent antibiotic use. Patient denies sore throat or upper respiratory symptoms. Patient denies any concern of STD specifically denies concern of syphilis or any new exposure. Related Data Home Medications Medication Instructions Recorded Confirmed albuterol sulfate 90 mcg/actuation 2 puff IH QID PRN #18 gm 01/09/20 04/20/20 aerosol inhaler nicotine (polacrilex) 2 mg buccal 2 mg BC Q6H PRN #27 each 01/09/20 04/20/20 lozenge nicotine 21 mg/24 hr daily 1 patch TD DAILY #28 each 01/09/20 04/20/20 transdermal patch clotrimazole [Lotrimin AF 1 applic TOPICAL TID 04/20/20 04/20/20 (clotrimazole)] hydroxyzine pamoate [Vistaril] 25 mg PO TID PRN #10 cap 04/20/20 Previous Rx's Medication Instructions Recorded albuterol sulfate 90 mcg/actuation 2 puff IH QID PRN #18 gm 01/09/20 aerosol inhaler nicotine (polacrilex) 2 mg buccal 2 mg BC Q6H PRN #27 each 01/09/20 lozenge nicotine 21 mg/24 hr daily 1 patch TD DAILY #28 each 01/09/20 transdermal patch hydroxyzine pamoate [Vistaril] 25 mg PO TID PRN #10 cap 04/20/20 Allergies Allergy/AdvReac Type Severity Reaction Status Date / Time nabumetone Allergy Intermediate swelling,ra Verified 04/20/20 09:45 sh doxycycline AdvReac Intermediate VOMITING Verified 04/20/20 09:45 hydrocodone AdvReac Intermediate VOMITING Verified 04/20/20 09:45 morphine AdvReac Intermediate vomiting Verified 04/20/20 09:45 General Stated Complaint: RashLesion MARGO: 4 Review of Systems All systems reviewed & are unremarkable except as noted in HPI and below PFSH Medical History Atopic dermatitis (Acute) Gastroesophageal reflux disease without esophagitis (Acute 04/24/18) WPW (Sefqq-Zfnuwengc-Bpsiy syndrome) (Chronic) Wrist pain (Acute) Surgical History Abnormal patient-activated cardiac event monitor (Acute) Internal Mrp Controller (NOT defibrillator or pacer) placed [facility] [place] 11/08/18 Appendectomy Cervical Procedure ovarian cyst-right Endometrial Ablation Ligation of fallopian tube Open Carpal Tunnel release 02/2018 (L) Ulnar Nerve Transposition 09/2017 Social History Smoking/Tobacco Use Status: Current-Occasional Tobacco Type: cigarettes Years smoked: 30 Tobacco: How many years used: 20 Quit status: considering quitting Second Hand Exposure: No Alcohol Intake: current Alcohol Intake frequency: holidays/special occasions only Alcohol type: hard liquor Drug use: Never Substance use type: does not use Caregiver/Support person: No Household members: spouse and other Details: Niece Communication Needs: None Do you need help understanding health information?: Never current occupation: [employer] Pets and animals: Yes Pets and animals: dog(s) Sexually active: No Do you think of yourself as: straight/heterosexual Current gender identity: female What is your relationship status?: How often do you talk on the phone with friends or family?: three or more times per week How often do you get together with friends or relatives?: decline to answer How often do you attend yazidism or scientologist services?: decline to answer Do you belong to any clubs or organized social groups?: no Panel score (0-1 are the most socially isolated patients): 2 What type of physical activity do you participate in: none Duration: > 90 minutes/day Frequency: other Details: I'm on my feet all day long at work Tessie/Holiness: Denominational Special tessie needs: No Seatbelt use: always Helmet use: Yes Helmet use: sometimes Drive intox or ride w/intox lead driver: No Do you feel safe at home: Yes Do you feel safe in your relationship?: Yes Exam Narrative Exam Narrative: CONST: Healthy appearing patient, in no acute distress. Well hydrated. Alert and oriented. HENMT: Head nomocephalic, normal to inspection. Atraumatic. Hearing grossly normal. Oral mucosa normal. Tounge normal. Dentition normal. Normal posterior oropharynx. Uvula midline. EYES: General normal appearance. Alignment normal. Eyelids normal. Conjunctiva normal. Sclera normal. PERRL. NECK: Normal visual inspection. FROM. No lymphadenopathy. Trachea midline. No Midline tenderness. CHEST: Normal insepection of the chest. RESP: Normal respiratory effort. Speaking full sentences. No cough. No wheezing. No retractions. Clear to auscaltation. Breath sound equal and present bilaterally. CARDIO: No JVD. Normal PMI. Regular Rate. Regular Rhythm. Normal peripheral pulses. GI: Normal inspection of abdomen. No distension. Soft. Nontender. Bowel sounds present in all 4 quadrants. No rebound. No gaurding. MUSCULOSKELETAL: Normal Gait. FROM of all extremities. Distal neurovascularly intact. Sensation intact distally. SKIN: Normal. Dry. Patient has a 2.5 cm oval area with raised edges noted in the right anterior trunk. Patient has several other significantly smaller lesions noted on the trunk scattered. Noted anteriorly and posteriorly both left and right. No dermatomal distribution. No pustules. NEURO: Alert and awake. Speech clear. PSYCH: Normal affect. Cooperative. Course Vital Signs Vital signs: Vital Signs Temperature 36.9 C 04/20/20 09:42 Pulse 95 H 04/20/20 09:42 Blood Pressure 164/83 H 04/20/20 09:42 Pulse Oximetry 97 04/20/20 09:42 Temperature 36.9 C 04/20/20 09:42 Temperature Source Temporal Artery Scan 04/20/20 09:42 Pulse 95 H 04/20/20 09:42 Respiratory Effort Non-Labored 04/20/20 10:02 Blood Pressure 164/83 H 04/20/20 09:42 Blood Pressure Position Sitting 04/20/20 09:42 Pulse Oximetry 97 04/20/20 09:42 Oxygen Delivery Method Room Air 04/20/20 09:42 Oxygen Flow Rate 0 04/20/20 09:42
[2020-04-20 10:52] LABS: Abs Immature Grans 0.01 k/cumm (0.0-0.09); Absolute Basophil Count 0.01 k/cumm (0.0-0.2); Absolute Eosinophil Count 0.08 k/cumm (0.0-0.7); Absolute Lymphocyte Count 1.51 k/cumm (1.2-3.4); Absolute Monocyte Count 0.43 k/cumm (0.11-0.7); Absolute Neutrophil Count 5.07 k/cumm (1.2-6.7); Basophils % 0.1; Eosinophils % 1.1; HGB 15.3 g/dL (12.0-15.5); Immature Grans % 0.1 %; Lymphocytes % 21.2; Mean Corp. HGB Concentration 34.8 g/dL (32.0-36.0); Mean Corpuscular Hemoglobin 31.1 pg (27.0-33.0); Mean Corpuscular Volume 89.4 fL (80-95); Mean Platelet Volume 10.6 fL (8.0-11.0); Neutrophils % 71.5; Platelet Count 328 x1000/uL (130-400); RBC 4.92 m/cumm (4.00-5.20); RBC Distribution Width 12.6 % (11.7-14.6); White Blood Cell Count 7.11 k/cumm (4.4-10.8)
[2020-04-21 10:16] LABS: Lyme Ab w Rflx to Lyme Confirm Negative (Negative)
[2020-04-22 23:05] LABS: Anaplasma phagocytophilum Negative (Negative); B. miyamotoi PCR Negative (Negative); Babesia divergens/MO-1 Negative (Negative); Babesia duncani Negative (Negative); Babesia microti Negative (Negative); Ehrlichia chaffeensis Negative (Negative); Ehrlichia ewingii/canis Negative (Negative); Ehrlichia muris eauclairensis Negative (Negative)
== END 2020-04-20 10:48 | disposition home or self-care (01) ==
PROVIDERS: Emergency Provider Physician Assistant; PCP Family Medicine
DX: R21 Rash and other nonspecific skin eruption (principal); L29.9 Pruritus, unspecified; S21.151A Open bite of right front wall of thorax without penetration into thoracic cavity, initial encounter; W57.XXXA Bitten or stung by nonvenomous insect and other nonvenomous arthropods, initial encounter
CPT/HCPCS: 87798; 99283; 85025; 86618

== ENCOUNTER 2020-04-26 08:26 | Outpatient (CLI) | payer OTHER, SELFPAY ==
[2020-04-28 04:56] LABS: SARS-CoV-2 RNA Undetected (Undetected); SARS-CoV-2 Specimen Source Nasopharynx
== END 2020-04-26 08:46 ==
PROVIDERS: PCP Family Medicine; Visit Provider Family Medicine
DX: Z11.59 Encounter for screening for other viral diseases (principal)
CPT/HCPCS: U0003

== ENCOUNTER 2020-05-05 09:21 | Outpatient (REF) | payer OTHER, SELFPAY ==
--- NOTE | 2020-05-05 08:30 | PAPFT_PTH ---
PATIENT: Marlena Meza LOC: [facility] U#:[id number] AGE/SX: 44/F ROOM: RE05/05/[address]: Arcelia Elizondo MD : 1975 BED: DIS: 05/05/2020 SPEC #: [id number] RECD: 05/06/20 12:59 STATUS: STEF SERRANO #: [id number] LILLIE: 05/05/20 08:[address]: Arcelia Elizondo DEPT: PENDING SALE TO [facility] Cytology RECD BY: Deloers Herrera Tissues: 1 - CX/ENDOCX FOR PAP SMEARS Procedures: PAP THIN PREP/UVM Screening HPV DNA PROBE Comments: [id number]
== END 2020-05-05 09:41 ==
LOC: LBN 09:21
PROVIDERS: PCP Family Medicine; Visit Provider Family Medicine
DX: Z12.4 Encounter for screening for malignant neoplasm of cervix (principal); Z11.51 Encounter for screening for human papillomavirus (HPV)
CPT/HCPCS: 88142; 87624

== ENCOUNTER 2020-05-10 07:00 | Outpatient (CLI) | payer OTHER, SELFPAY ==
[2020-05-10 08:04] LABS: ALT 29 U/L (14-59); AST 20 U/L (15-37); Albumin 3.7 g/dL (3.4-5.0); Alkaline Phosphatase 49 U/L (46-116); Anion Gap 10.4 mmol/L (3-11); BUN 16 mg/dL (7-18); Bilirubin, Total 0.5 mg/dL (0.2-1.0); CO2 22.6 mmol/L (21.0-32.0); CREATININE 0.82 mg/dL (0.55-1.02); Calcium 8.8 mg/dL (8.5-10.1); Chloride 106 mmol/L (98-107); Glucose 115 mg/dL (74-106); Potassium 3.9 mmol/L (3.5-5.1); Sodium 139 mmol/L (136-145); Total Protein 6.7 g/dL (6.4-8.2)
== END 2020-05-10 07:20 ==
PROVIDERS: PCP Family Medicine; Visit Provider Family Medicine
DX: R12 Heartburn (principal)
CPT/HCPCS: 36415; 80053

== ENCOUNTER 2020-07-26 00:25 | Outpatient (CLI) | payer OTHER, SELFPAY ==
--- NOTE | 2020-07-26 | DI.CT_ITS ---
EXAM: CT CHEST WO CLINICAL HISTORY: DYSPNEA, R06.00. TECHNIQUE: Imaging protocol: Axial computed tomography images were obtained and coronal and sagittal reformatted images were created and reviewed. COMPARISON: CR XR CHEST 2V PA LATERAL from 07/14/2018 FINDINGS: Tracheobronchial tree: Patent where visualized. Mediastinum and Jyoti: No dominant adenopathy or fluid collection. Pulmonary parenchyma: There is scarring or atelectasis in the lower lobes. No focal consolidation is seen. There is a 5 mm nodule in the left lower lobe. No architectural distortion. Pleura: No effusion or pneumothorax. Heart: The heart is not dilated. No coronary artery calcifications are seen. No pericardial effusion. Aorta: Thoracic aorta non-dilated. Upper abdomen: Unremarkable. Lymph nodes: Within normal limits. Bones:Mild degenerative changes are seen in the spine. Soft tissues: Unremarkable. IMPRESSION: 1. 5 mm left lower lobe pulmonary nodule. In high risk patients, (example: Smoking history) follow-u p CT scan of the chest in 12 months is recommended. Please correlate with the patient's past medical history. 2. Bilateral basilar scarring and/or atelectasis. 3. No acute pulmonary process. RADIATION DOSE DELIVERED: 589.08mGy.cm Total DLP 589.08mGy.cm Total DLP DATA REPOSITORY: All CT scans at this facility are submitted to the National Radiology Data Registry (NRDR) Dose Index Registry (DIR) with the [employer] (ACR). RADIATION OPTIMIZATION: All CT scans at this facility use at least one of these dose optimization te chniques: automated exposure control; mA and/or kV adjustment per patient size (includes targeted exa ms where dose is matched to clinical indication); or iterative reconstruction.
--- NOTE | 2020-07-26 15:00 | DI.US_ITS ---
APPROVED REPORT EXAM: Comprehensive 2D, Doppler, and color-flow Echocardiogram Patient Location: Out-Patient Gas Pump Attendant: Laquita Angulo RDCS (AE) Indications: Dyspnea, Pulmonary HTN Other Information Study Quality: Good Conclusion Mild concentric left ventricular hypertrophy. Estimated ejection fraction is 60%. There are no segm ental wall motion abnormalities Normal right ventricular size and function Normal left and right atrial size There are no structural valvular abnormalities There are no hemodynamically significant valvular abnormalities. Right ventricular systolic pressure could not be estimated Wall motion Left Ventricle The left ventricle is normal size. The left ventricular systolic function is normal. The left ventric ular ejection fraction is within the normal range. Mild concentric left ventricular hypertrophy. Ther e is normal LV segmental wall motion. There is no ventricular septal defect visualized. LVEF is 60%. Right Ventricle The right ventricle is normal size. The right ventricular systolic function is normal. Atria The left atrium size is normal. The right atrium size is normal. The interatrial septum is intact wit h no evidence for an atrial septal defect. Aortic Valve The aortic valve is normal in structure. Aortic valve is trileaflet. There is no aortic valvular sten osis. No aortic regurgitation is present. Mitral Valve The mitral valve is normal in structure. No evidence of mitral valve stenosis. Trace mitral regurgita tion. Tricuspid Valve The tricuspid valve is normal in structure. There is no tricuspid valve stenosis. Trace tricuspid reg urgitation. Unable to assess PA pressure. Pulmonic Valve The pulmonary valve is normal in structure. There is no pulmonic valvular stenosis. Trace pulmonic re gurgitation. Great Vessels The aortic root is normal in size. The ascending aorta is normal in size. Aortic arch is normal in ca liber. IVC is normal in size and collapses >50% with inspiration. Pericardium There is no pericardial effusion. 2D Dimensions IVSD d PLAX 1.13 cm F: 0.6-1.0 LV Vol A2C d MOD 91.5 mL LVPW d PLAX 1.16 cm F: 0.6 - 1.0 LV Vol A4C d MOD 82.1 mL LVID d PLAX 4.02 cm F: 3.8 - 5.2 LA vol/ BSA A2C s A-L 18.0 mL/m2 LVDs 2.65 cm F: 2.2 - 3.5 LA vol/ BSA A4C s A-L 21.3 mL/m2 Ao Root d 2.54 cm F: 2.7 - 3.3 LA Vol/ BSA Biplane s A-L 19.9 mL/m2 RA Area A4C 13.29 cm2 LA Area A4C s MOD 16.30 cm2 RA Vol/ BSA A4C s A-L 15.9 mL/m2 LA Area A2C s MOD 15.21 cm2 Ao Asc Diam d 3.16 cm F: 2.3 - 3.1 LV EF A4C MOD 57.7 % LV EF Teichholz 62.3 % LV EF A2C MOD 60.5 % LVEF (Valencia's) 58.54 % F: 54 - 74 LV EF Biplane MOD 58.5 % LV Volume 66.41 mL F: 46 - 106 SV 51.76 mL LV Volume Index 33.37 mL/m2 F: 29 - 61 SV Index 25.99 mL/m2 LV Vol Biplane MOD 88.4 mL FS 33.10 % LV Diastology MV E' medial 0.099 (>0.07 m/s) E/A Ratio 1.4 LV E/e MED 8.30 (<14) MV E Vmax 0.82 (0.4-1.3 m/s) MV E' lateral 0.119 (>0.1 m/s) MV A Vmax 0.60 (0.4-1.3 m/s) LV E/e LAT 6.85 (<14) MV E/A Ratio 1.28 MV E/E' medial 8.33 MV E/E' lateral 6.90 Aortic Valve LVOT Area 3.24 cm2 AoV Area Vmax 3.32 cm2 LVOT Vmax 1.74 m/s AoV Area/ BSA (Vmax) 1.67 cm2/m2 LVOT Mean Eric. 1.06 m/s SAIGE Mean Eric. 2.99 cm2 LVOT Peak Grad 12.1 mmHg SAIGE Mean Eric. Index 1.50 cm2/m2 LVOT Mean Grad 5.5 mmHg LVOT VTI 0.327 m LVOT Diam s 2.00 cm AoV Vmax 1.70 m/s Velocity Ratio 1.02 AoV Mean Eric. 1.15 m/s AoV Peak Grad 11.6 mmHg LVOT SV 105.91 mL AoV Mean Grad 6.1 mmHg AoV VTI 0.319 m AoV Area VTI 3.32 cm2 AoV Area/ BSA (VTI) 1.67 cm/m2 Mitral Valve MV DT 188 (160-240 msec) MV PHT 54 msec MV Area PHT 4.04 cm2 Pulmonary Valve PV Vmax 1.25 (0.5-1.5 m/s) RVOT Peak Gr. 3.11 mmHg PV Peak Grad 6.2 mmHg RVOT Mean Gr. 1.70 mmHg PV Mean Grad 3.6 mmHg RVOT VTI 0.191 m PV VTI 0.257 m RVOT Vmax 0.88 m/s
== END 2020-07-26 00:45 ==
PROVIDERS: PCP Family Medicine; Visit Provider Internal Medicine
DX: R91.1 Solitary pulmonary nodule (principal); R06.00 Dyspnea, unspecified; I27.20 Pulmonary hypertension, unspecified
CPT/HCPCS: 71250; 93306

== ENCOUNTER 2020-08-20 08:42 | Outpatient (CLI) | payer OTHER, SELFPAY ==
[2020-08-23 07:42] LABS: Patient Race White; SARS-CoV-2 RNA Undetected (Undetected); SARS-CoV-2 Specimen Source Nasopharynx
== END 2020-08-20 09:02 ==
PROVIDERS: PCP Family Medicine; Visit Provider Emergency Medicine
DX: Z20.828 Contact with and (suspected) exposure to other viral communicable diseases (principal)
CPT/HCPCS: U0003

== ENCOUNTER 2021-01-21 18:22 | Outpatient (REF) | payer OTHER, SELFPAY ==
[2021-01-23 14:39] LABS: COVID-19 RT-PCR UVMMC Result Negative (Negative)
== END 2021-01-21 18:23 | disposition home or self-care (01) ==
LOC: LBN 18:22
PROVIDERS: PCP Family Medicine; Visit Provider Student in an Organized Health Care Education/Training Program
DX: Z20.828 Contact with and (suspected) exposure to other viral communicable diseases (principal); J32.9 Chronic sinusitis, unspecified
CPT/HCPCS: U0003

== ENCOUNTER 2021-02-28 22:14 | Outpatient (REF) | payer OTHER, SELFPAY ==
[2021-02-28 21:33] LABS: Bilirubin Negative (Negative); Blood Trace-intact (Negative); Clarity Clear (Clear); Glucose Negative (Negative); Ketones Negative (Negative); Leukocyte Esterase Negative (Negative); Nitrite Negative (Negative); Specific Gravity 1.015 (1.005-1.025); Urobilinogen 0.2 EU/dL (Up TO 0.2); pH 6.5 (5-8)
[2021-02-28 21:34] LABS: Abs Immature Grans 0.02 10^3/uL (0.0-0.06); Absolute Basophil Count 0.03 10^3/uL (0.0-0.2); Absolute Eosinophil Count 0.05 10^3/uL (0.0-0.7); Absolute Lymphocyte Count 2.34 10^3/uL (1.2-3.4); Absolute Monocyte Count 0.54 10^3/uL (0.1-0.8); Absolute Neutrophil Count 4.95 10^3/uL (1.2-6.7); Basophils % 0.4; Eosinophils % 0.6; HCT 43.2 % (36.0-46.0); HGB 14.4 g/dL (11.2-15.7); Immature Grans % 0.3; Lymphocytes % 29.5; MCH 29.8 pg (27.0-33.0); MCHC 33.3 % (32.0-36.0); MCV 89.3 fL (80-95); MPV 10.8 fL (8.0-11.0); Monocytes % 6.8; Neutrophils % 62.4; Nucleated RBC 0 %; Platelet Count 282 10^3/uL (130-400); RBC 4.84 10^6/uL (3.93-5.22); RDW 12.5 % (11.7-14.6); RDW-SD 40.9 fL; WBC 7.93 10^3/uL (4.4-10.8)
[2021-02-28 21:44] LABS: Bacteria Few HPF (Negative); C & S Indicated? Yes; Casts Negative LPF (Negative); Crystals Negative HPF (Negative); Epithelial Cells Few HPF (Negative); Mucus Negative (Negative); Other Cells Negative (Negative); RBC 0-2 HPF (0-2); WBC Negative HPF (0-5)
[2021-02-28 21:51] LABS: ALT 30 U/L (14-59); AST 17 U/L (15-37); Alkaline Phosphatase 55 U/L (46-116); Anion Gap 11.1 mmol/L (3-11); BUN 16 mg/dL (7-18); Bilirubin, Total 0.3 mg/dL (0.2-1.0); CO2 24.9 mmol/L (21.0-32.0); CREATININE 0.9 mg/dL (0.55-1.02); Calcium 9.6 mg/dL (8.5-10.1); Chloride 105 mmol/L (98-107); Glucose 95 mg/dL (74-106); Potassium 4.2 mmol/L (3.5-5.1); Sodium 141 mmol/L (136-145); TSH (W/Ref FT4) 2.11 uIU/mL (0.36-3.74); Total Protein 7.4 g/dL (6.4-8.2)
[2021-02-28 22:14] LABS: Hemoglobin A1C 5.8 % (<5.7)
== END 2021-02-28 22:15 | disposition home or self-care (01) ==
LOC: NCHCN 22:14
PROVIDERS: PCP Family Medicine; Visit Provider Physician Assistant
DX: R53.83 Other fatigue (principal); R73.03 Prediabetes; N39.0 Urinary tract infection, site not specified
CPT/HCPCS: 80053; 81003; 81015; 83036; 84443; 85025; 87086

== ENCOUNTER 2021-07-14 20:10 | Emergency (ER) | payer OTHER, SELFPAY ==
[2021-07-14 20:16] VITALS: BP 131/88; PULSE 87; RESP 19; TEMP 37.1; O2SAT 97
[2021-07-14 20:22] VITALS: RESP 20
--- NOTE | 2021-07-14 20:22 | ED.GENADUL_ITS ---
Discharge Plan Disposition Patient Disposition: HOME Condition: Good Discharge Details Clinical Impression: Tick bite Primary Care Provider: Arcelia Elizondo ED Provider: Roberto Hoffman Home Meds and New Rx's Prescriptions: Continued dicyclomine 10 mg capsule 10 mg PO BID PRN (Reason: abdominal pain) Qty: 25 RF: 1 cyclobenzaprine 5 mg tablet 5 mg PO TID PRN (Reason: muscle spasm) Qty: 10 RF: 0 albuterol sulfate 90 mcg/actuation HFA aerosol inhaler 2 puff IH QID PRN (Reason: shortness of breath or wheezing) Qty: 18 RF: 6 Discharge Instructions Instructions: Tick Bite (ED) Additional Instructions: You have been given the prophylactic dose of doxycycline for Lyme disease. If this was a deer tick, it will come back the potential for getting an infection. If you notice any worsening of your symptoms, or any new symptoms such as vomiting, diarrhea, fever, chills, shortness of breath, chest pain, numbness, weakness, or fainting , please return immediately to the emergency department for reevaluation. Please follow up with your primary care provider as soon as possible for reassessment and reevaluation. As always, it was a pleasure participating in your medical care today. Referrals: Arcelia Elizondo MD [Primary Care Provider] - Medical Decision Making This is a pleasant 45-year-old female who presents today for evaluation of suspected tick bite. Patient states she was scratching her back when she took off a tick. It appears to be a small lymph. She denies any pain fever or chills. She has noticed and picked up ticks off of family members for the last 2 days. No other complaints at this time. Patient does have a allergy to doxycycline, but this was just an upset stomach. No anaphylaxis or swelling or edema in the past. Physical exam demonstrates no evidence of erythema migrans or other rash. Out of concern for potential Lyme disease from the deer tick which she did bring in for evaluation we will give a prophylactic dose of 200 mg of doxycycline. Discussed red flags which to return. I have extensively reviewed the treatment plan and discharge instructions with the patient. I have addressed all patient concerns at this time. The patient was made aware of what symptoms to monitor for that would warrant a return to the emergency department. Discussed the plan with the patient, they demonstrate verbal understanding and agreement with our assessment and plan at this time. The documentation in this chart was dictated using [employer] dictation software. Please excuse any dictation errors. HPI General Date/Time Provider Initiated Documentation: 07/14/21 20:16 . HPI Narrative: This is a pleasant 45-year-old female who presents today for evaluatio n of suspected tick bite. Patient states she was scratching her back when she took off a tick. It appears to be a small lymph. She denies any pain fever or chills. She has noticed and picked up ticks off of family members for the last 2 days. No other complaints at this time. Patient does have a allergy to doxycycline, but this was just an upset stomach. No anaphylaxis or swelling or edema in the past. Related Data Home Medications Medication Instructions Recorded Confirmed dicyclomine 10 mg capsule 10 mg PO BID PRN #25 cap 05/11/21 05/11/21 cyclobenzaprine 5 mg tablet 5 mg PO TID PRN #10 tab 06/01/21 albuterol sulfate 90 mcg/actuation 2 puff IH QID PRN #18 gm 06/21/21 aerosol inhaler Previous Rx's Medication Instructions Recorded dicyclomine 10 mg capsule 10 mg PO BID PRN #25 cap 05/11/21 cyclobenzaprine 5 mg tablet 5 mg PO TID PRN #10 tab 06/01/21 albuterol sulfate 90 mcg/actuation 2 puff IH QID PRN #18 gm 06/21/21 aerosol inhaler Allergies Allergy/AdvReac Type Severity Reaction Status Date / Time nabumetone Allergy Intermediate swelling,ra Verified 07/14/21 20:24 sh trazodone AdvReac Severe Shakiness, Verified 07/14/21 20:24 paranoia, insomnia doxycycline AdvReac Intermediate VOMITING Verified 07/14/21 20:24 hydrocodone AdvReac Intermediate VOMITING Verified 07/14/21 20:24 morphine AdvReac Intermediate vomiting Verified 07/14/21 20:24 General Stated Complaint: GenMedical MARGO: 5 Review of Systems All systems reviewed & are unremarkable except as noted in HPI and below PFSH Medical History Atopic dermatitis Cubital tunnel syndrome on right (06/21/16) Gastroesophageal reflux disease without esophagitis (04/24/18) Lung nodule PND (post-nasal drip) Presenting acutely, but Hx supports chronic issue. Trial nasal steroid Right carpal tunnel syndrome (05/27/18) Right lateral epicondylitis (06/21/16) Right rotator cuff tendinitis (06/21/16) Sleep disturbance WPW (Mdnlc-Qyprophme-Hicyd syndrome) Wrist pain Surgical History Abnormal patient-activated cardiac event monitor Internal Financial Aid Director (NOT defibrillator or pacer) placed [facility] [place] 11/08/18 Appendectomy Cervical Procedure ovarian cyst-right Endometrial Ablation Left carpal tunnel syndrome (01/23/18) LEFT ECTR: 02/21/2018 Injected: 02/03/2019 Ligation of fallopian tube Open Carpal Tunnel release 02/2018 (L) Ulnar Nerve Transposition 09/2017 Family History Mother Diabetes Essential hypertension Hyperlipidemia Depression Heart disease Father Diabetes Alcohol abuse Depression Heart disease Hyperlipidemia Stroke Prostate cancer Brother Diabetes Essential hypertension Depression Hyperlipidemia Maternal Grandfather Heart disease Stroke Paternal Grandfather Diabetes Essential hypertension Heart disease Hyperlipidemia Maternal Grandmother Diabetes Heart disease Paternal Grandmother Diabetes Essential hypertension Heart disease Hyperlipidemia Maternal Aunt Breast cancer Sister No problems noted. Sister Depression Brother Diabetes Hyperlipidemia Hypertension Daughter Depression MATERNAL HISTORY Neoplasm 2 AUNTS AND 1 UNCLE PATERNAL HISTORY Neoplasm UNCLE-BREAST Social History Smoking/Tobacco Use Status: Current-Occasional Tobacco Type: cigarettes Years smoked: 30 Tobacco: How many years used: 20 Quit status: quit date established Second Hand Exposure: Yes Smoking risk assessment performed?: Yes Alcohol Intake: current Alcohol Intake frequency: holidays/special occasions only Alcohol type: beer and hard liquor Drug use: Never Substance use type: does not use Caregiver/Support person: No Household members: spouse, children and other Details: Niece Housing: house Communication Needs: None Do you need help understanding health information?: Never current occupation: [employer] Pets and animals: Yes Pets and animals: dog(s) Sexually active: No Do you think of yourself as: straight/heterosexual Current gender identity: female What is your relationship status?: How often do you talk on the phone with friends or family?: three or more times per week How often do you get together with friends or relatives?: three or more times per week How often do you attend scientologist or restorationist services?: decline to answer Do you belong to any clubs or organized social groups?: no Panel score (0-1 are the most socially isolated patients): 2 What type of physical activity do you participate in: walking Duration: > 90 minutes/day Frequency: daily Tessie/Anabaptism: Yazidi Special tessie needs: No Seatbelt use: always Helmet use: Yes Helmet use: sometimes Drive intox or ride w/intox full service vending driver: No Do you feel safe at home: Yes Do you feel safe in your relationship?: Yes Exam Narrative Exam Narrative: 1.Const: Well-nourished, Well-developed, appearing stated age 2.Eyes: PERRL, no conjunctival injection, and symmetrical lids. 3.ENT: Atraumatic external nose and ears. Moist MM. Neck: Symmetric, trachea midline, No thyromegaly. 4.CVS: +S1/S2, No murmurs or gallops. Peripheral pulses 2+ and equal in all extremities. Brisk capillary refill in all extremities. 5.RESP: Unlabored respiratory effort. Clear to auscultation bilaterally. No wheezes rales or rhonchi 6.GI: Soft, Nontender/Nondistended, No hepatosplenomegaly. No guarding or rebound. 7.MSK: Normocephalic/Atraumatic, Extremities w/o deformity or ttp No cyanosis or clubbing, Normal movement of all extremities 8.Skin: Warm, Dry. No rashes or lesions. The region where the tick was pulled off demonstrates no evidence of erythema migrans or other rash. 9.Neuro: matchbook maker II-XII grossly intact. Sensation grossly intact, no focal neurologic deficits. 10.Psych: (AAO) x3. Appropriate mood and affect Course Vital Signs Vital signs: Vital Signs Pulse 87 07/14/21 20:16 Respiratory Rate 07/14/21 20:16 Blood Pressure 131/88 07/14/21 20:16 Pulse Oximetry 97 07/14/21 20:16 Pulse 87 07/14/21 20:16 Respiratory Rate 19 07/14/21 20:16 Blood Pressure 131/88 07/14/21 20:16 Blood Pressure Position Sitting 07/14/21 20:16 Pulse Oximetry 97 07/14/21 20:16 Oxygen Delivery Method Room Air 07/14/21 20:16 Oxygen Flow Rate 0 07/14/21 20:16 Pain Level 0 07/14/21 20:16
[2021-07-14] MEDS: Doxycycline Hyclate 100 MG CAP 200 MG PO (20:27)
== END 2021-07-14 20:32 | disposition home or self-care (01) ==
LOC: ER 20:32
PROVIDERS: Emergency Provider Student in an Organized Health Care Education/Training Program; PCP Family Medicine
DX: S30.860A Insect bite (nonvenomous) of lower back and pelvis, initial encounter (principal); W57.XXXA Bitten or stung by nonvenomous insect and other nonvenomous arthropods, initial encounter
CPT/HCPCS: 99283; 99282

== ENCOUNTER 2021-08-17 02:20 | Outpatient (CLI) | payer OTHER, SELFPAY ==
--- NOTE | 2021-08-17 08:04 | DI.MAMMO_ITS ---
Exam(s) MAMMO SCREENING EXAM: MAMMO SCREENING CLINICAL HISTORY: screening,Z12.39. TECHNIQUE: Bilateral full field digital CC and MLO mammographic images were obtained with 3D tomosyn thesis and utilizing computer aided detection (CAD). COMPARISON: Prior baseline mammogram of April 2019 FINDINGS: Fibroglandular pattern is again noted be moderately dense. Cardiac loop detector on left side again noted No new significant radiograph findings in left breast. In the right breast on 3D MLO imaging there is a asymmetric density-possible nodule located 5 cm in f rom the nipple on the MLO 3D views and measuring approximately 1.3 x 0.5 cm. Spot compression view r ecommended no malignant-appearing microcalcification groups in this region or elsewhere in either venkatesh ast. There is no significant architectural distortion nor skin thickening-retraction. IMPRESSION: 1. No radiographic evidence of malignancy in left breast. 2. Asymmetric density-possible nodule in the right breast, best seen on MLO 3D view. Spot compressio n mammographic view and ultrasound recommended. BI-RADS Category 0 - Assessment Incomplete: Need additional imaging evaluation Breast Density - Category C - Heterogeneously dense Breast density Category C or D implies that the patient has dense breast tissue. Dense breast tissue can make it harder to find cancer on a mammogram. Dense breast tissue is also associated with an incr eased risk of breast cancer. This information about the result of the mammogram report was provided to the patient to raise their awareness. Use this report when you speak with the patient about their risks for breast cancer, which includes their family history. At that time, you may recommend additional screening tests (Ultrasoun d or MRI) as these tests may add significant information. A negative radiographic report should not delay biopsy if a dominant or clinically suspicious mass is present. Up to ten percent of cancers are not identified on mammography. A negative report may reinforce clinical impression. Adenosis and dense breasts may obscure an underlying neoplasm. False positive reports average 6 to 10%. Patient will receive a letter notifying them of these results.
== END 2021-08-17 02:40 ==
PROVIDERS: PCP Family Medicine; Visit Provider Family Medicine
DX: Z12.31 Encounter for screening mammogram for malignant neoplasm of breast (principal); R92.8 Other abnormal and inconclusive findings on diagnostic imaging of breast
CPT/HCPCS: 77063; 77067

== ENCOUNTER 2021-08-29 00:24 | Outpatient (CLI) | payer OTHER, SELFPAY ==
--- NOTE | 2021-08-29 | DI.US_ITS ---
Exam(s) US BREAST RT COMPLETE EXAM: US BREAST RT COMPLETE CLINICAL HISTORY: F/U MAMMO, RT ASYMMETRIC DENSITY, ? NODULE. TECHNIQUE: Complete ultrasound of the right breast was performed including all 4 quadrants, the retr oareolar region, and the ipsilateral axilla. COMPARISON: Prior mammograms were reviewed. Today's spot compression view was reviewed FINDINGS: At 10 o'clock position there is a finding which has appearance of 2 adjacent hemorrhagic microcysts w hich correspond to the finding on the mammogram. Total measurement is 10 x 5 millimeter. No other focal findings in all 4 quadrants. No adenopathy in the ipsilateral right axilla IMPRESSION: 10 x 5 millimeter finding as described above, most probably benign. Appropriate follow-up is repeat right breast mammogram and ultrasound in 6 months.. BI-RADS category: 8-[id number] follow-up 6 months repeat ultrasound and mammogram Breast Density - Category C - Heterogeneously dense Breast density Category C or D implies that the patient has dense breast tissue. Dense breast tissue can make it harder to find cancer on a mammogram. Dense breast tissue is also associated with an incr eased risk of breast cancer. This information about the result of the mammogram report was provided to the patient to raise their awareness. Use this report when you speak with the patient about their risks for breast cancer, which includes their family history. At that time, you may recommend additional screening tests (Ultrasoun d or MRI) as these tests may add significant information. A negative radiographic report should not delay biopsy if a dominant or clinically suspicious mass is present. Up to ten percent of cancers are not identified on mammography. A negative report may reinforce clinical impression. Adenosis and dense breasts may obscure an underlying neoplasm. False positive reports average 6 to 10%. Patient will receive a letter notifying them of these results.
--- NOTE | 2021-08-29 10:46 | DI.MAMMO_ITS ---
Exam(s) MG MAMMO SCREEN CALL BACK UNI EXAM: MG MAMMO SCREEN CALL BACK UNI-RIGHT CLINICAL HISTORY: F/U MAMMO, RT BREAST ASYMMETRIC DENSITY, ? NODULE. TECHNIQUE: Unilateral spot mammographic images obtained with 3D tomosynthesisand utilizing computer aided detection (CAD). . COMPARISON: Prior mammograms were reviewed. This additional imaging was performed due to findings described on the recent screening mammogram of 08/17/2021. FINDINGS: Additional mammographic views performed todaysomewhat equivocal. We therefore proceeded with ultrasound examination. Please see that separate ultrasound report ultra sound did reveal finding at the 10 o'clock position which has the appearance of a probable 10 x 5 mil limeter conglomeration of 2 hemorrhagic microcysts and most probably corresponds to the finding on th e mammogram. IMPRESSION: As above. Please also refer to ultrasound report. Appropriate follow-up , as explained by myself to the patient and her today, is repeat right breast mammogram and ultrasound in 6 months. The patient was informed of these findings and recommendations prior to leaving the department today. BI-RADS Category 3 - 3 month - Probably Benign Finding: Recommend follow-up mammography in 3 months Breast Density - Category B - Scattered areas of fibroglandular density Breast density Category C or D implies that the patient has dense breast tissue. Dense breast tissue can make it harder to find cancer on a mammogram. Dense breast tissue is also associated with an incr eased risk of breast cancer. This information about the result of the mammogram report was provided to the patient to raise their awareness. Use this report when you speak with the patient about their risks for breast cancer, which includes their family history. At that time, you may recommend additional screening tests (Ultrasoun d or MRI) as these tests may add significant information. A negative radiographic report should not delay biopsy if a dominant or clinically suspicious mass is present. Up to ten percent of cancers are not identified on mammography. A negative report may reinforce clinical impression. Adenosis and dense breasts may obscure an underlying neoplasm. False positive reports average 6 to 10%. Patient will receive a letter notifying them of these results.
== END 2021-08-29 00:44 ==
PROVIDERS: PCP Family Medicine; Visit Provider Family Medicine
DX: Z12.31 Encounter for screening mammogram for malignant neoplasm of breast (principal); R92.8 Other abnormal and inconclusive findings on diagnostic imaging of breast; N60.11 Diffuse cystic mastopathy of right breast
CPT/HCPCS: 76642; 77063; 77067

== ENCOUNTER 2021-09-28 15:54 | Outpatient (REF) | payer OTHER, SELFPAY ==
--- NOTE | 2021-09-28 11:40 | VUL_PTH ---
PATIENT: Marlena Meza LOC: N U#:[id number] AGE/SX: 45/F ROOM: RE09/28/[address]: Tita Husain MD : 1975 BED: DIS: 09/28/2021 SPEC #: [id number] RECD: 09/28/21 16:04 STATUS: STEF REBessy #: [id number] LILLIE: 09/28/21 11:[address]: Tita Husain DEPT: Surgical Specimen RECD BY: Delores Herrera ENTERED: 09/28/21 16:05 SP TYPE: VUL OTHR DR: Arcelia Elizondo MD Tissues: 1 - VULVA BIOPSY Procedures: GROSS AND MICRO LEVEL 4 Comments: [id number]
== END 2021-09-28 15:55 | disposition home or self-care (01) ==
LOC: LBN 15:54
PROVIDERS: PCP Family Medicine; Visit Provider Obstetrics & Gynecology
DX: N76.2 Acute vulvitis (principal)
CPT/HCPCS: 88305

== ENCOUNTER 2021-12-02 14:07 | Outpatient (REF) | payer OTHER, SELFPAY ==
[2021-12-03 13:16] LABS: COVID-19 RT-PCR UVMMC Result Negative (Negative)
== END 2021-12-02 14:08 | disposition home or self-care (01) ==
LOC: LBN 14:07
PROVIDERS: PCP Family Medicine; Visit Provider Family Medicine
DX: Z20.822 Contact with and (suspected) exposure to COVID-19 (principal)
CPT/HCPCS: U0003

== ENCOUNTER 2022-03-22 21:48 | Emergency (ER) | payer OTHER, SELFPAY ==
[2022-03-22 22:09] VITALS: BP 148/90; PULSE 72; RESP 16; TEMP 36.8; O2SAT 99
--- NOTE | 2022-03-22 23:45 | DI.CT_ITS ---
Exam(s) CT HEAD WO EXAM: CT HEAD WO CLINICAL HISTORY: head, pain to top right scalp, hx of cancer risk. TECHNIQUE: Imaging Protocol: Axial computed tomography images with coronal and sagittal reformatted images were created and reviewed COMPARISON: CT HEAD WITH CONTRAST from 04/05/2010 FINDINGS: Ventricles and Extra axial spaces: Normal in size and morphology for the patient's age. Hemorrhage: None. Cerebral parenchyma: Normal. Midline shift: None. Brainstem/Cerebellum: Normal. Calvarium: Normal. Visualized Paranasal sinuses/Mastoids: Clear. Soft Tissues: Unremarkable. IMPRESSION: No acute intracranial process. RADIATION DOSE DELIVERED: 745.91mGy.cm Total DLP DATA REPOSITORY: All CT scans at this facility are submitted to the National Radiology Data Registry (NRDR) Dose Index Registry (DIR) with the [employer] (ACR). RADIATION OPTIMIZATION: All CT scans at this facility use at least one of these dose optimization te chniques: automated exposure control; mA and/or kV adjustment per patient size (includes targeted exa ms where dose is matched to clinical indication); or iterative reconstruction.
--- NOTE | 2022-03-22 23:55 | ED.GENADUL_ITS ---
Discharge Plan Disposition Patient Disposition: STILL A PATIENT Condition: Stable Discharge Details Primary Care Provider: Olinda Winter ED Provider: Roberto Hoffman Home Meds and New Rx's Prescriptions: No Action dicyclomine 10 mg capsule 10 mg PO BID PRN (Reason: abdominal pain) Qty: 25 1RF cyclobenzaprine 5 mg tablet 5 mg PO TID PRN (Reason: muscle spasm) Qty: 10 0RF albuterol sulfate 90 mcg/actuation HFA aerosol inhaler 2 puff IH QID PRN (Reason: shortness of breath or wheezing) Qty: 18 6RF Rx Instructions: use with aerochamber ketoconazole 2 % shampoo 1 applic TOPICAL Medical Decision Making 46-year-old female history of prior headaches, presents with 2 days of gradual onset headache, endorses that the headache is worse than her normal headaches, right parietal temporal rating to right eye, slight nausea without vomiting; photophobia and phonophobia. Neurologically intact cranial nerves intact no ataxia. Nonmeningeal afebrile. Likely atypical migraine versus cluster headache versus patient does have a family history of gene mutation predisposing to melanoma and renal cell carcinoma consider however less likely metastatic disease to the brain although less likely given history and physical. Will provide analgesia anti-inflammatory CT head close reassessment likely discharge home with neuro follow-up as needed. HPI General Date/Time Provider Initiated Documentation: 03/22/22 23:13 . HPI Narrative: Here 46-year-old female presents with 2 days of headache right frontal rating to the eye associated with pain to her top right scalp, endorses photophobia phonophobia nausea without vomiting. Has had headaches in the past however this feels worse than her normal headaches. Gradual in onset over the past 2 days. Related Data Home Medications Medication Instructions Recorded Confirmed dicyclomine 10 mg capsule 10 mg PO BID PRN abdominal pain 05/11/21 03/22/22 #25 caps cyclobenzaprine 5 mg tablet 5 mg PO TID PRN muscle spasm #10 06/01/21 03/22/22 tabs albuterol sulfate 90 mcg/actuation 2 puff inhalation QID PRN 06/21/21 03/22/22 aerosol inhaler shortness of breath or wheezing #18 grams ketoconazole 2 % shampoo 1 applic topical 03/22/22 Previous Rx's Medication Instructions Recorded dicyclomine 10 mg capsule 10 mg PO BID PRN abdominal pain 05/11/21 #25 caps cyclobenzaprine 5 mg tablet 5 mg PO TID PRN muscle spasm #10 06/01/21 tabs albuterol sulfate 90 mcg/actuation 2 puff inhalation QID PRN 06/21/21 aerosol inhaler shortness of breath or wheezing #18 grams Allergies Allergy/AdvReac Type Severity Reaction Status Date / Time nabumetone Allergy Intermediate swelling,ra Verified 03/22/22 22:13 sh trazodone AdvReac Severe Shakiness, Verified 03/22/22 22:13 paranoia, insomnia doxycycline AdvReac Intermediate VOMITING Verified 03/22/22 22:13 hydrocodone AdvReac Intermediate VOMITING Verified 03/22/22 22:13 morphine AdvReac Intermediate vomiting Verified 03/22/22 22:13 General Stated Complaint: Headache MARGO: 3 Review of Systems Narrative: Review of Systems Constitutional: negative Eyes: negative ENT: negative Cardiovascular: negative Respiratory: negative Gastrointestinal: negative : negative Musculoskeletal: negative Skin: Scalp pain Neurologic: Headache photophobia phonophobia Psych: negative PFSH All Active Problems (Updated 12/13/21 @ 15:34 by Ginger Moreira RN) COVID-19 (Acute ~12/13/21) Obesity (Acute) 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 PND (post-nasal drip) (Chronic) Presenting acutely, but Hx supports chronic issue. Trial nasal steroid; improved Wrist pain (Chronic) left, after h/o fracture Palpitations (Acute) Atopic dermatitis (Acute) Restless leg syndrome (Acute 05/06/18) Migraine (Acute) Depressive disorder (Acute) Medical History (Updated 12/13/21 @ 15:34 by Ginger Moreira RN) Cubital tunnel syndrome on right (06/21/16) Laryngopharyngeal reflux Right carpal tunnel syndrome (05/27/18) Right lateral epicondylitis (06/21/16) Right rotator cuff tendinitis (06/21/16) WPW (Wfugd-Dontougpv-Qtbkq syndrome) s/p ablation x 2, unsuccessful. Cardiology suggested pacemaker, has indwelling event monitor instead. Surgical History (Updated 09/28/21 @ 16:56 by Tita Husain MD) Abnormal patient-activated cardiac event monitor Internal Decorator Hand (NOT defibrillator or pacer) [place] [facility] [place] Appendectomy Cervical Procedure ovarian cyst-right Endometrial Ablation Left carpal tunnel syndrome (01/23/18) LEFT ECTR: 02/21/2018 Injected: 02/03/2019 Ligation of fallopian tube Open Carpal Tunnel release 02/2018 (L) Ulnar Nerve Transposition 09/2017 Family History (Updated 12/02/21 @ 07:55 by Olinda Winter MD) Mother Diabetes Essential hypertension Hyperlipidemia Depression Heart disease Father Diabetes Alcohol abuse Depression Heart disease Hyperlipidemia Stroke Prostate cancer Brother Diabetes Essential hypertension Depression Hyperlipidemia Maternal Grandfather Heart disease Stroke Paternal Grandfather Diabetes Essential hypertension Heart disease Hyperlipidemia Maternal Grandmother Diabetes Heart disease Paternal Grandmother Diabetes Essential hypertension Heart disease Hyperlipidemia Maternal Aunt Breast cancer Sister No problems noted. Sister Depression Brother Diabetes Hyperlipidemia Hypertension Daughter Depression MATERNAL HISTORY Neoplasm 2 AUNTS AND 1 UNCLE PATERNAL HISTORY Neoplasm UNCLE-BREAST Paternal Uncle Breast cancer Prostate cancer Paternal Aunt Melanoma Social History (Updated 12/02/21 @ 08:10 by Olinda Winter MD) Smoking/Tobacco Use Status: Former Tobacco Use Quit Date: 11/05/21 Tobacco: How many years used: 20 Second Hand Exposure: Yes Counseling given: provider counseling Smoking risk assessment performed?: Yes Alcohol Intake: current Alcohol Intake frequency: holidays/special occasions only Alcohol type: beer and hard liquor Drug use: Never Substance use type: does not use Caregiver/Support person: No Household members: spouse and other Details: Niece Housing: house Number of Children: 1 Communication Needs: None Do you need help understanding health information?: Never 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 [employer] Pets and animals: Yes Pets and animals: dog(s) Sexually active: No Do you think of yourself as: straight/heterosexual Current gender identity: female What is your relationship status?: How often do you talk on the phone with friends or family?: three or more times per week How often do you get together with friends or relatives?: three or more times per week How often do you attend cheondoism or bahai services?: decline to answer Do you belong to any clubs or organized social groups?: no Panel score (0-1 are the most socially isolated patients): 2 What type of physical activity do you participate in: walking Duration: > 90 minutes/day Frequency: daily Tessie/Shinto: Tenriism Special tessie needs: No Seatbelt use: always Helmet use: Yes Helmet use: sometimes Drive intox or ride w/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: No Do you feel safe at home: Yes Do you feel safe in your relationship?: Yes Additional Social history: Enjoys playing with her [employer] Exam Narrative Exam Narrative: Physical Examination General: alert, awake, cooperative, resting comfortably, no acute distress HEENT: normocephalic, atraumatic; PERRL, EOM intact, conjunctiva normal; no nasal discharge; moist mucous membranes, oral and pharyngeal mucosa normal, tolerating secretions Neck: supple, trachea midline; full ROM; nonmeningeal Chest: normal to inspection Respiratory: normal respiratory effort, speaking in full sentences, clear to auscultation, no wheezing, rales or rhonchi Cardiac: regular rate, regular rhythm, S1S2 intact, no murmurs rubs or gallops GI: abdomen soft, non-tender, non-distended; no palpable mass or hepatosplenomegaly Skin: Possibly one irritated hair follicle right upper scalp, no fluctuance purulence erythema or induration Neuro: AAOx3, normal speech, moving all extremities; cranial nerves II through XII intact, 5 out of 5 strength upper and lower extremities ambulatory without assistance no ataxia Psych: Appropriate mood and affect Course Vital Signs Vital signs: Vital Signs Temperature 36.8 C 03/22/22 22:09 Pulse 72 03/22/22 22:09 Respiratory Rate 16 03/22/22 22:09 Blood Pressure 148/90 H 03/22/22 22:09 Pulse Oximetry 99 03/22/22 22:09 Temperature 36.8 C 03/22/22 22:09 Pulse 72 03/22/22 22:09 Respiratory Rate 16 03/22/22 22:09 Respiratory Effort Non-Labored 03/22/22 22:13 Blood Pressure 148/90 H 03/22/22 22:09 Pulse Oximetry 99 03/22/22 22:09 Pain Level 5 03/22/22 22:13 Sign Out Sign Out Data: Sign Out Comment: pending CT head, reassess post meds, likely home w/or w/o neuro followup Last updated by Dmitriy Kaiser MD at 03/23/22 00:15
--- NOTE | 2022-03-23 00:51 | DI.VRAD_ITS ---
PROCEDURE INFORMATION: Exam: CT Head Without Contrast Exam date and time: 03/23/2022 00:26 Age: 46 years old Clinical indication: Other: Head pain, top of scalp, crown area, HX cancer risk TECHNIQUE: Imaging protocol: Computed tomography of the head without contrast. Radiation optimization: All CT scans at this facility use at least one of these dose optimization techniques: automated exposure control; mA and/or kV adjustment per patient size (includes targeted exams where dose is matched to clinical indication); or iterative reconstruction. COMPARISON: MR CERVICAL SPINE WITHOUT CONT. 01/27/2019 16:40 FINDINGS: Brain: No edema or hemorrhage. Cerebral ventricles: No ventriculomegaly. Paranasal sinuses: No acute sinusitis. Mastoid air cells: No mastoid effusion. Bones/joints: No acute fracture. Soft tissues: No suspicious lesions. IMPRESSION: No acute intracranial findings. Dictated and Authenticated by: Lalitha Platt MD. Ordering:GO Izaguirre MD
[2022-03-23 01:07] VITALS: BP 115/57; PULSE 52; RESP 16; O2SAT 96
== END 2022-03-23 01:27 | disposition home or self-care (01) ==
PROVIDERS: Emergency Provider Student in an Organized Health Care Education/Training Program; PCP Family Medicine
DX: R51.9 Headache, unspecified (principal)
CPT/HCPCS: 99284; 70450; 99283

== ENCOUNTER → 2022-04-14 00:46 | Outpatient (CLI) | payer OTHER, SELFPAY | PROVIDERS: PCP Family Medicine; Visit Provider Family Medicine ==

== ENCOUNTER 2022-06-09 16:17 | Outpatient (REF) | payer OTHER, SELFPAY ==
--- NOTE | 2022-06-09 15:30 | PAPFT_PTH ---
PATIENT: Marlena Meza LOC: [facility] U#:[id number] AGE/SX: 46/F ROOM: RE06/09/[address]: Aris Iverson DNP : 1975 BED: DIS: 06/09/2022 SPEC #: [id number] RECD: 06/12/22 12:41 STATUS: STEF REQ #: [id number] LILLIE: 06/09/22 15:[address]: Aris Blackmon DEPT: [facility] Cytology RECD BY: Ravin Osei ENTERED: 06/12/22 12:42 SP TYPE: PAPFT RADHA DR: Olinda Winter Tissues: 1 - CX/ENDOCX FOR PAP SMEARS Procedures: PAP THIN PREP/UVM Screening HPV DNA PROBE Comments: [id number]
== END 2022-06-09 16:18 | disposition home or self-care (01) ==
LOC: LBN 16:17
PROVIDERS: PCP Family Medicine; Visit Provider Nurse Practitioner Family
DX: Z12.4 Encounter for screening for malignant neoplasm of cervix (principal); Z11.51 Encounter for screening for human papillomavirus (HPV)
CPT/HCPCS: 88142; 87624

== ENCOUNTER → 2022-06-28 01:28 | Outpatient (CLI) | payer OTHER, SELFPAY ==
--- NOTE | 2022-06-28 07:15 | DI.US_ITS ---
Exam(s) US BREAST RT COMPLETE MG MAMMO DIAGNOSTIC BI EXAM: MG MAMMO DIAGNOSTIC BI AND COMPLETE RIGHT BREAST ULTRASOUND CLINICAL HISTORY: new onset rt breast pain,n64.4. TECHNIQUE: Both CC and MLO mammographic images of both breasts were obtained with 3D tomosynthesis t echnique and utilizing computer aided detection (CAD). Also performed additional spot compression 3D view of the right breast over her area of maximum tende rness. Also performed complete right breast ultrasound, scanning all 4 quadrants as well as the retroareolar region and the right axilla. COMPARISON: Prior mammograms were reviewed, the most recent being August 2021.. She apparently has persistent but not constant right breast pain. FINDINGS: Cardiac loop detector on the left side is again noted No new mammographic findings in left breast. In the right breast there suggestion few small round be nign-appearing nodular densities. Benign skin calcifications again noted. There are no malignant-ap pearing microcalcification groups in either breast. No significant architectural distortion or skin thickening-traction. COMPLETE RIGHT BREAST ULTRASOUND: At the 3 o'clock position there is a 7 x 4 millimeter microcyst evident. At the 5 o'clock position there is a 4 x 3 millimeter microcyst No other focal ultrasound findings including laterally where she has most of her non constant pain. Scanning of the retroareolar region is negative for focal findings. Scanning of the right axilla is negative for significant adenopathy. IMPRESSION: No evidence of malignancy. Two small microcysts are noted in the right breast on ultrasound examinat ion as described above, these at 3 and 5 o'clock positions. No solid lesions noted. Appropriate follow-up is repeat breast imaging in 3 months if symptoms persist. The patient was informed of the findings and follow-up recommendations by myself prior to leaving the department today. BI-RADS Category 3 - 3 month - Probably Benign Finding: Recommend follow-up mammography in 3 months Breast Density - Category B - Scattered areas of fibroglandular density Breast density Category C or D implies that the patient has dense breast tissue. Dense breast tissue can make it harder to find cancer on a mammogram. Dense breast tissue is also associated with an incr eased risk of breast cancer. This information about the result of the mammogram report was provided to the patient to raise their awareness. Use this report when you speak with the patient about their risks for breast cancer, which includes their family history. At that time, you may recommend additional screening tests (Ultrasoun d or MRI) as these tests may add significant information. A negative radiographic report should not delay biopsy if a dominant or clinically suspicious mass is present. Up to ten percent of cancers are not identified on mammography. A negative report may reinforce clinical impression. Adenosis and dense breasts may obscure an underlying neoplasm. False positive reports average 6 to 10%. Patient will receive a letter notifying them of these results.
--- NOTE | 2022-06-28 07:15 | DI.MRI_ITS ---
Exam(s) MR BRAIN WO EXAM: MR BRAIN WO CLINICAL HISTORY: headache x 5 days,PERSISTENT VERIGO, H81.4, NEG CT TECHNIQUE: Multiplanar multisequence MRI of the brain was performed. COMPARISON: CT CT HEAD WO from 03/23/2022 FINDINGS: CEREBRAL PARENCHYMA: There is no evidence of intracranial hemorrhage, mass effect, or shift of midline structures. There are no extra-axial fluid collections. Ventricles are not enlarged or shifted. There is no significant focal signal abnormality in the cerebellar hemispheres nor within the cole, m idbrain, and thalami. There are no masses in the cerebellopontine angles. No evidence of cerebellar tonsillar ectopia. There is no abnormal signal abnormality in the periventricular white matter. There is no significant focal signal abnormality evident on diffusion imaging to suggest acute ischem ic event. SWI: No evidence of microhemorrhages. PITUITARY GLAND: No mass nor parasellar abnormality. No obvious abnormality in the cavernous sinuses. FLOW VOIDS: The expected flow void are noted. No evidence of obvious aneurysm nor obvious vascular ma lformation. PARANASAL SINUSES: The visualized paranasal sinuses appear unremarkable. No obvious finding ORBITS: No obvious findings. IMPRESSION: No significant intracranial findings on this noninfused MRI scan of the brain. DATA REPOSITORY:
== END ==
PROVIDERS: PCP Family Medicine; Visit Provider Nurse Practitioner Family
DX: N64.4 Mastodynia (principal); Z12.31 Encounter for screening mammogram for malignant neoplasm of breast; H81.4 Vertigo of central origin; R51.9 Headache, unspecified
CPT/HCPCS: 76642; 77062; 77066; 70551; G0279

== ENCOUNTER 2022-06-28 02:40 | Outpatient (CLI) | payer OTHER, SELFPAY ==
[2022-06-28 09:33] LABS: Anion Gap 11.1 mmol/L (3-11); BUN 18 mg/dL (7-18); CO2 24.9 mmol/L (21.0-32.0); CREATININE 0.8 mg/dL (0.55-1.02); Calcium 9.2 mg/dL (8.5-10.1); Calculated LDL 184 mg/dL (<100); Chloride 104 mmol/L (98-107); Cholesterol 264 mg/dL (<200); Glucose 134 mg/dL (74-106); HDL Cholesterol 64 mg/dL (40-60); Potassium 4.8 mmol/L (3.5-5.1); Sodium 140 mmol/L (136-145); Triglyceride 80 mg/dL (<150)
== END 2022-06-28 02:41 | disposition home or self-care (01) ==
LOC: LBO 02:40
PROVIDERS: PCP Family Medicine; Visit Provider Family Medicine
DX: Z00.00 Encounter for general adult medical examination without abnormal findings (principal); Z13.220 Encounter for screening for lipoid disorders
CPT/HCPCS: 36415; 80048; 80061

== ENCOUNTER 2022-07-26 18:34 | Outpatient (CLI) | payer OTHER, SELFPAY ==
[2022-07-26 15:36] LABS: Hemoglobin A1C 5.9 % (<5.7)
== END 2022-07-26 18:35 | disposition home or self-care (01) ==
LOC: LBO 18:35
PROVIDERS: PCP Family Medicine; Visit Provider Nurse Practitioner Family
DX: R73.01 Impaired fasting glucose (principal)
CPT/HCPCS: 36415; 83036

== ENCOUNTER 2022-12-26 00:59 | Outpatient (CLI) | payer OTHER, SELFPAY ==
--- NOTE | 2022-12-26 15:00 | ETT_ITS ---
APPROVED REPORT Exam: Exercise Treadmill Patient Location: Out-Patient Room/Bed: Stress Nurse: Gala Dawson RN Ordering Provider:OTTONIEL VILLARREAL MD, Contact Number: [phone] BMI: 31.79 Baseline Rhythm: Sinus Rhythm Indications: Chest pain, preexcitation syndrome Medical History Medical History: Marlena-Parkinson White Syndrome, hypertension, hyperlipidemia, prediabetes, palpitati ons, heart murmur, smoker (current), depression Cardiac Medications: Fluoxetine, topiramate Allergies: Hydrocodone, morphine, nabumetone, trazodone, doxycycline Cardiac Risk Factors: Hypertension, hyperlipidemia, prediabetes, smoker (current), obesity, family hx Previous Cardiac Procedures: None Pretest Chest Pain Characteristics: None Exercise History: Indeterminate Physical Disabilities: None Lung Sounds: Clear to auscultation Heart Sounds: Regular Stress Test Details Test: Exercise stress testing was performed using a Jong protocol. Rest Stress HR Resting HR Supine: 66 bpm Max Heart Rate (APMHR): 175 bpm Resting HR Standin bpm Target HR (85% APMHR): 149 bpm Max HR Achieved: 150 bpm % of APMHR: 86 Recovery HR: 80 bpm HR response to stress: Normal HR response to stress BP Resting BP Supine: 110/68 mmHg Resting BP Standin/84 mmHg Max BP: 168/82 mmHg Recovery BP: 120/78 mmHg BP response to stress: Normal blood pressure response to stress. ECG Resting ECG: Sinus Rhythm Ectopy: None Stress ECG: Sinus Tachycardia ST Change: Horizontal ST depression Lead(s): inferior, lateral Stage: [address] Deviation: 3-4 mm Arrhythmia: None Recovery ECG: Sinus Rhythm Recovery ST Change: Horizontal ST depression Lead(s): inferior, lateral Recovery ST Deviation: 2-3 mm Recovery Arrhythmia: None Comment: ST depression changes resolved by minute 9 of recovery Clinical Reason for Termination: Stress test terminated by RN due to ST depression changes and THR being reach ed Stress Symptoms: General Fatigue, Dyspnea Exercise duration: 5 min20 sec Highest Stage Reached: Stage 2: 2.5 mph at 12% grade. Exercise capacity: 7.05 METs Angina Score: None Bowser Treadmill Score: -6.0 Rate Pressure Product: [id number] Stress ECG Conclusion 1. Resting electrocardiogram showed LVH voltage and right atrial abnormality 2. Patient exercised on the Jong protocol and completed a workload of 7.05 METS 3. Normal heart rate and blood pressure response to exercise. The patient achieved 86% of predicted heart rate for age 4. The electrocardiographic portion of the test was consistent with myocardial ischemia in the infer ior and anterolateral leads 5. Suggest repeat with imaging if clinically indicated Bowser Treadmill Score is -6.0 which is Moderate risk. Stress Test Summary STAGE Time (mins) Speed (mph) Grade (%) HR BP SpO2 SYMPTOMS METS Supine 66 110/68 Standing 72 120/84 97% 1 3 1.7 10 119 158/72 98% 4.5 2 6 2.5 12 150 97% Moderate SOB 7 1 min recovery 118 168/82 98% Moderate SOB 3 min recovery 88 158/76 SOB resolved 6 min recovery 80 152/84 95% 9 min recovery 80 120/78
== END 2022-12-26 01:19 ==
PROVIDERS: PCP Family Medicine; Visit Provider Family Medicine
DX: I45.6 Pre-excitation syndrome (principal); R07.9 Chest pain, unspecified
CPT/HCPCS: 93017

== ENCOUNTER 2023-12-18 06:32 | Day surgery (SDC) | payer OTHER, SELFPAY ==
--- NOTE | 2023-12-18 | DI.CT_ITS ---
Exam(s) CT CHEST/ABD W EXAM: CT CHEST/ABD W CLINICAL HISTORY: hiatal hernia TECHNIQUE: Imaging Protocol: Axial computed tomography images with coronal and sagittal reformatted images were created and reviewed CONTRAST MATERIAL: Intravenous: Omnipaque 350 contrast volume:100 mL Oral: No COMPARISON: CT CT CHEST WO from 07/26/[address] CHEST WO from 07/26/2021 FINDINGS: CHEST: Tracheobronchial tree: Patent where visualized. Pulmonary parenchyma: There is scarring or atelectasis in the right middle lobe and the left lower lo be. No focal consolidating infiltrates are seen. No architectural distortion. Visualized thyroid gland: There is a 1 cm hypodense nodule in the left lobe of the thyroid gland. No follow-up is recommended. Mediastinum and Jyoti: No dominant adenopathy or fluid collection. The esophagus is unremarkable. The re is no evidence of a hiatal hernia. Pleura: No effusion or pneumothorax. Heart: The heart is not dilated. No coronary artery calcifications are seen. No pericardial effusion. Pulmonary arteries: No large central pulmonary embolism. Aorta: Thoracic aorta non-dilated. Mild atherosclerosis. Lymph nodes: Within normal limits. Soft tissues: Unremarkable. Bones:Within normal limits for the patient's age. ABDOMEN: Liver: Normal density. No measurable mass. Portal, Superior Mesenteric, and Splenic Veins: Unremarkable. Gallbladder and Biliary Tract: No radiodense calculus or dilation. Pancreas: Normal density, no abnormal calcifications or inflammatory process. Spleen: Normal. Adrenals: No masses seen. Kidneys: Normal size, contour and axis. No radiodense stones or obstructive uropathy. No masses seen. Abdominal Aorta: Abdominal portion non-dilated. Mild atherosclerosis. Bowel: No obstruction or bowel wall thickening. Peritoneal Cavity: No ascites, collection or mesenteric inflammatory response. No free air. Lymph Nodes: Within normal limits. Bones: Within normal limits for the patient's age. Soft Tissues: Unremarkable. IMPRESSION: 1. No acute pulmonary or abdominal process. 2. No evidence of a hiatal hernia. RADIATION DOSE DELIVERED: 1,010.52mGy.cm Total DLP DATA REPOSITORY: All CT scans at this facility are submitted to the National Radiology Data Registry (NRDR) Dose Index Registry (DIR) with the [employer] (A[employer]). RADIATION OPTIMIZATION: All CT scans at this facility use at least one of these dose optimization te chniques: automated exposure control; mA and/or kV adjustment per patient size (includes targeted exa ms where dose is matched to clinical indication); or iterative reconstruction.
--- NOTE | 2023-12-18 06:26 | W.ANESPRE ---
General Info Date of Service Date Performed: 12/18/23 Height: 5 ft 6 in Weight: 90.265 kg Body Mass Index (BMI): 32.1 Surgical Procedure: Operation Date: 12/18/23 08:50 Proposed Procedure Side Surgeon p Colonoscopy/Gastroscopy Edna Barron, DO Meds Allergies and Home Medications Allergies Allergy/AdvReac Type Severity Reaction Status Date / Time nabumetone Allergy Intermediate swelling,ra Verified 12/18/23 07:24 sh trazodone AdvReac Severe Shakiness, Verified 12/18/23 07:24 paranoia, insomnia doxycycline AdvReac Intermediate VOMITING Verified 12/18/23 07:24 hydrocodone AdvReac Intermediate VOMITING Verified 12/18/23 07:24 morphine AdvReac Intermediate vomiting Verified 12/18/23 07:24 Home Medication Medication Instructions Recorded cyclobenzaprine 5 mg tablet 5 mg PO TID PRN muscle spasm #10 06/01/21 tabs albuterol sulfate 90 mcg/actuation 2 puff inhalation QID PRN 12/15/22 aerosol inhaler shortness of breath or wheezing #18 grams multivitamin (Multiple Vitamins 1 tab PO DAILY 07/02/23 tablet) promethazine 25 mg tablet 25 mg PO Q6H PRN Nausea #15 tabs 11/30/23 bisacodyl 5 mg tablet,delayed 5 mg PO ONCE colonscopy bowel prep 12/11/23 release (Dulcolax (bisacodyl)) #4 tabs polyethylene glycol 3350 17 238 g PO ONCE colonoscopy prep 12/11/23 gram/dose oral powder #238 grams Current Visit Medications: Current Medications Generic Name Dose Route Start Last Admin Trade Name Mattq PRN Reason Stop Dose Admin Hyoscyamine Sulfate 0.125 mg 12/18/23 22:35 Hyoscyamine 0.125 Mg Sl/Oral/Chew SL 01/17/24 22:34 DIRECTED PRN Ringer's Solution 1,000 mls @ 80 mls/hr 12/18/23 06:00 IV 01/16/24 23:59 INFUSION VENITA IV Miscellaneous Supplies 1 each 12/18/23 06:00 Iv Access IV 01/16/24 23:59 DIRECTED VENITA Ondansetron HCl 4 mg 12/18/23 22:35 Ondansetron 4 Mg/2 Ml Vial IVP 01/17/24 22:34 Q4H PRN PRN Nausea / Vomiting Sodium Chloride 0 ml 12/18/23 06:00 Normal Saline Flush 10 Ml Syr IV 01/16/24 23:59 PRN PRN Sodium Chloride 0 ml 12/18/23 06:00 Normal Saline 10 Ml Vial IJ 01/16/24 23:59 DIRECTED PRN Sterile Water 0 ml 12/18/23 06:00 Water,Injection,Sterile 10 Ml Vial IJ 01/16/24 23:59 DIRECTED PRN PFSH Active Problems Active Problems: Problem Status Onset Code Epigastric pain R10.13 Hematochezia K92.1 MCWILLIAMS (dyspnea on exertion) R06.09 Former smoker Z87.891 Chronic GERD K21.9 Irritable bowel syndrome with constipation K58.1 Depressive disorder F32.9 Migraine G43.909 Obesity E66.9 Restless leg syndrome 05/06/18 G25.81 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 Atopic dermatitis L20.9 Wrist pain M25.539 PND (post-nasal drip) R09.82 Sleep disturbance G47.9 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 Z15.09 Breast pain, right N64.4 Fasting hyperglycemia R73.01 Chronic constipation without overflow incontinence K59.09 Medical History Medical History Cubital tunnel syndrome on right (06/21/16) Laryngopharyngeal reflux Lung nodule 5mm and 3mm, found incidentally in 07/2020, stable 07/2021 Right carpal tunnel syndrome (05/27/18) Right lateral epicondylitis (06/21/16) Right rotator cuff tendinitis (06/21/16) Surgical History Surgical History Abnormal patient-activated cardiac event monitor Internal Mental Retardation Aide (NOT defibrillator or pacer) placed [facility] 11/08/18 Appendectomy Cervical Procedure ovarian cyst-right Endometrial Ablation Left carpal tunnel syndrome (01/23/18) LEFT ECTR: 02/21/2018 Injected: 02/03/2019 Ligation of fallopian tube Open Carpal Tunnel release 02/2018 (L) Ulnar Nerve Transposition 09/2017 Tobacco Smoking/Tobacco Use Status: Former Tobacco Use Passive smoking exposure: Yes Second hand exposure: Yes Counseling given: provider counseling Alcohol Alcohol Intake: current Alcohol intake frequency: holidays/special occasions only Alcohol type: beer and hard liquor Substance Use Substance use: Never Substance use type: does not use Vital Signs and Lab Results Vital Signs Most Recent Vital Signs in EMR: Temp Pulse Resp BP Pulse Ox 36.5 C 70 16 114/81 98 12/18/23 07:16 12/18/23 07:16 12/18/23 07:16 12/18/23 07:16 12/18/23 07:16 Lab Results Blood Type / Crossmatch: No Data to Display Complete Blood Count: White Blood Count 6.03 10^3/uL (4.4-10.8) 12/05/23 16:19 Red Blood Count 4.73 10^6/uL 12/05/23 16:19 Hemoglobin 13.7 g/dL 12/05/23 16:19 Hematocrit 41.0 % 12/05/23 16:19 Platelet Count 293 10^3/uL 12/05/23 16:19 Complete Metabolic Panel: Sodium 139 (120-150) 12/05/23 16:24 Potassium 4.6 mmol/L (3.5-5.1) 12/05/23 16:24 Chloride 109 mmol/L 12/05/23 16:24 Carbon Dioxide 23 mmol/L 12/05/23 16:24 BUN 18 mg/dL (7-18) 12/05/23 16:24 Creatinine 0.80 mg/dL (0.55-1.02) 12/05/23 16:24 Calcium 9.3 mg/dL 12/05/23 16:24 Albumin 4.1 g/dL 12/05/23 16:24 Glucose 112 mg/dL 12/05/23 16:24 Liver Function Panel: Alanine Aminotransferase (ALT/SGPT) 20 U/L 12/05/23 16:24 Aspartate Amino Transf (AST/SGOT) 38 U/L 12/05/23 16:24 Coagulation Panel: No Data to Display Cardiac Panel: No Data to Display Arterial Blood Gas: No Data to Display Venous Blood Gas: No Data to Display Pancreas Panel: No Data to Display Thyroid Panel: No Data to Display Infectious Disease: No Data to Display Blood Cultures: No Data to Display Toxicology Panel: No Data to Display Panel: No Data to Display Imaging and Studies Imaging and Studies Study information below may be from another EMR and interpreted by another provider. Please see original notes in EMR for more complete details. Stress Test Summary: 12/28: resting EKG with LVH. 7 METS, ECG consistent with PR in the inferior and anterolateral leads. Echocardiogram Summary: 07/25: mild LVH, LVEF 60%, no segmental WMA. no valve issues. Cardiac Catheterization Summary: 02/25: mild CAD, mild LAD bridging. Pulmonary Function Summary: 01/22: isolated mild diffusion defect. Anesthesia Assessment and Plan Anesthesia History Personal History: No History of Anesthesia Complications Family History: No Family History of Anesthesia Complications Exercise Tolerance Exercise Tolerance: Metabolic Equivalents>4 Cardiac & Pulmonary Exam Cardiac Exam: Normal S1/S2 Heart Sounds Pulmonary Exam: Clear Bilateral Breath Sounds Implantable Cardiac Device Does patient have a Pacemaker or an ICD?: No Airway Exam Known Difficult Airway: No Mallampati Class: 1 Mouth Opening: Normal (> 3cm) Thyromental Distance: Greater than 3 cm Neck Range of Motion: Full ROM Neck Circumference: Normal Teeth Condition: Normal Dentition ASA Classification ASA Score: ASA 3 Emergency Case?: No NPO Status NPO Status: NPO Clears >2 hours, Solids >8 hours Status Status: Negative HCG Anesthesia Plan Resuscitation Status: Full Code Anesthesia Technique: General Anesthesia Airway Planned: Natural Airway Monitors Used: Standard Monitors Preoperative Comments:: 48 yo female for EGD/colo. Sig PMHx: exertional chest pain, MCWILLIAMS, RLS, WPW, GERD, pulm nodules, former smoker, occ EtOH. Has been seen at [facility] for her chest pain and stress test. [facility], stress echo was performed showing mild CAD.
[2023-12-18 07:16] VITALS: BP 114/81; PULSE 70; RESP 16; TEMP 36.5; O2SAT 98
[2023-12-18] MEDS: Lactated Ringers 1,000 ML 80 ML IV (07:40)
[2023-12-18 07:44] VITALS: BMI 32.1
--- NOTE | 2023-12-18 08:48 | BOWEL_PTH ---
PATIENT: Marlena Meza LOC: [facility] U#:[id number] AGE/SX: 48/F ROOM: RE12/18/[address]: Edna Barron : 1975 BED: DIS: 12/18/2023 SPEC #: [id number] RECD: 12/18/23 12:56 STATUS: STEF Bessy #: [id number] LILLIE: 12/18/23 08:[address]: Edna Barron DEPT: Surgical Specimen RECD BY: Delores Herrera ENTERED: 12/18/23 12:58 SP TYPE: Bowel OTHR DR: Olinda Winter Tissues: 1 - BIOPSY BOWEL 2 - BIOPSY BOWEL 3 - STOMACH BIOPSY 4 - STOMACH BIOPSY 5 - ESOPHAGUS BIOPSY 6 - ESOPHAGUS BIOPSY 7 - BIOPSY BOWEL Procedures: GROSS AND MICRO LEVEL 4 Comments: [id number]
[2023-12-18 09:24] VITALS: BP 104/71; PULSE 78; RESP 18; TEMP 36.4; O2SAT 100
--- NOTE | 2023-12-18 09:25 | ENDO_ITS ---
Date of service: 12/18/23 Time of Service: 09:25 Endoscopy Report DATE OF PROCEDURE: 12/18/23 PRE-OP DIAGNOSIS: GERD POST-OP DIAGNOSIS: other (large hiatal hernia/esophagitis ) SURGEON: Edna Barron ANESTHESIA TYPE: General:No Airway ESTIMATED BLOOD LOSS: 3 PATHOLOGY: other COMPLICATIONS: None DISPOSITION: same day PROCEDURE DESCRIPTION: After informed consent was obtained the patient was take to the procedure room and placed in a supine position. Monitors were applied and a time out was done. The patients name, date of , procedure type, allergies to medications and metal in their body was reviewed. A bite block was placed and the patient was sedated. Once sedated and comfortable the gastroscope was advanced through the oropharynx which was grossly normal into the esophagus. The proximal and mid- esophagus were normal. In the distal esophagus there was mild esophagitis and irregularity of the GE junction. SHe had a large hiatal hernia with at least a quarter to the third of the stomach herniated up into the chest. the scope was advanced into the stomach and through the pylorus into the 3rd portion of the duodenum. The duodenum was noted to be normal. Biopsies were done-see pathology, all specimens are retrieved and no bleeding is noted. The scope was retracted back into the stomach and biopsies were done to rule out H. pylori. There were ulcers or gastritis in the duodenum or stomach. The stomach is pink and healthy with no signs of ischemia necrosis or ulceration. The scope was retroflexed. The cardia and fundus were noted to be normal. There large a hiatal hernia noted-as noted previously the scope was retracted back into the esophagus and biopsies were done of the GE junction to rule out Bell's. The Z line was irregular. The scope was removed and proceeded with the colonoscopy.
--- NOTE | 2023-12-18 09:28 | COLE_ITS ---
Date of service: 12/18/23 Time of Service: 09:28 Colonoscopy Report Date of procedure: 12/18/23 Pre-op diagnosis general: Colorectal cancer screening Post-op diagnosis procedure note: other (Rectal polyp which is probably hyperplastic or lymph tissue) Surgeon: Edna Barron Anesthesia Type: General:No Airway Estimated blood loss (mL): 1 Pathology: other Complications: None Disposition: same day Prep: Miralax/Dulcolax Retraction Time: 11 Procedure Description: After informed consent was obtained the patient was taken to the procedure room and placed in a left decubitous position. Monitors were applied and a time out was done. The patients name, date of , procedure, allergies to medications and metal in their body was reviewed. The patient was then sedated. Once sedated and comfortable a rectal exam was done. External exam was normal. Internal exam revealed a normal sphincter tone and no palpable masses. The scope was then introduced and retrofelexed. No internal hemorrhoids were identified. The scope was then advanced to the cecum without difficulty. The TI and appendiceal orifice were identified. The scope was then slowly retracted over 11 minutes back into the rectum. There are no AVMs, or diverticula visualized today. The mucosa is pink and healthy with a normal vascular pattern. She has a 5 mm polyp in the rectum that is removed with a cold biopsy forcep. This is most likely hyperplastic or lymphoid tissue. All specimen is retrieved and no bleeding is noted. The scope was removed and the patient was woken up and taken back to Same day surgery in stable condition. The patient tolerated the procedure well and there were no immediate complications. Follow up: The patient should follow up in 7-10 years, path pending, unless they develop changes in bowel habits or other new gastrointestinal complaints. [place] Bowel Prep [place] Bowel Prep Right Colon: 3 Left Colon: 3 Transverse Colon: 3 Total Score: 9
[2023-12-18 09:59] VITALS: BP 104/71; PULSE 61; RESP 16; TEMP 36.2; O2SAT 100
[2023-12-18] MEDS: Normal Saline Flush 10 ML SYR IV ×2 (10:06→10:49)
--- NOTE | 2023-12-18 10:07 | W.ANESPOSTOP ---
Postoperative Evaluation Date, Time and Location Date Performed: 12/18/23 Time Performed: 09:38 Patient Location: Day Surgery Unit Vital Signs Most Recent Imported Vital Signs: Most Recent Vital Signs Temp Pulse Resp BP Pulse Ox 36.2 C L 61 16 104/71 100 12/18/23 09:59 12/18/23 09:59 12/18/23 09:59 12/18/23 09:59 12/18/23 09:59 Pain Score Most Recent Pain Score: Most Recent Pain Score Pain Level 0 12/18/23 09:59 Assessment Mental Status: Awake (Alert & Oriented to Patient Baseline) Airway and Respiratory Function: Patent airway with normal (patient baseline) respiratory exam Cardiovascular Function: Hemodynamically Stable Hydration Status: Adequately Hydrated Nausea & Vomiting: No Nausea or Vomiting Pain: Pt. Denies Any Pain Peripheral Nerve Block: Patient did not receive a nerve block
[2023-12-18 10:25] VITALS: BP 105/81; PULSE 61; RESP 16; TEMP 36; O2SAT 99
[2023-12-18] MEDS: Omnipaque 350 MG/ML 100 ML BTL IJ (10:47)
[2023-12-18] MEDS: Normal Saline - Diluent 50 ML VIAL IJ (10:48)
[2023-12-18 11:30] VITALS: BP 119/63; PULSE 55; RESP 18; TEMP 36.6; O2SAT 99
--- NOTE | 2023-12-18 11:45 | PDOC.DSDIS_ITS ---
Date of service: 12/18/23 Time of Service: 11:45 Discharge Plan Disposition Patient Disposition: Home Condition: Good Discharge Details Reason For Visit: stomach and colon scope Attending Provider: Edna Barron Primary Care Provider: Olinda Winter Home Meds and New Rx's Prescriptions: New pantoprazole [Protonix] 40 mg tablet,delayed release (DR/EC) 40 mg PO DAILY Qty: 90 4RF Continued multivitamin [Multiple Vitamins] Tablet 1 tab PO DAILY albuterol sulfate 90 mcg/actuation HFA aerosol inhaler 2 puff IH QID PRN (Reason: shortness of breath or wheezing) Qty: 18 6RF Rx Instructions: use with aerochamber promethazine 25 mg tablet 25 mg PO Q6H PRN (Reason: Nausea) Qty: 15 0RF cyclobenzaprine 5 mg tablet 5 mg PO TID PRN (Reason: muscle spasm) Qty: 10 0RF Discontinued polyethylene glycol 3350 17 gram/dose powder 238 g PO ONCE Qty: 238 0RF Rx Instructions: take per colonoscopy instructions bisacodyl [Dulcolax (bisacodyl)] 5 mg tablet,delayed release (DR/EC) 5 mg PO ONCE Qty: 4 0RF Rx Instructions: take per colonoscopy instructions Discharge Instructions Additional Instructions: DSU Colonoscopy Post- Op Instructions Instructions for Everyone who is given Anesthesia: For your safety, please do the following for the next twenty-four (24) hours: *Do Not operate a motor vehicle (car, truck, motorcycle, etc.) *Do Not drink alcoholic beverages or use any recreational drugs for the first 24 hours or while taking pain medications. The medications in your body may have a reaction that can be dangerous. *Do Not make any important decisions or sign any important papers. Findings: hiatal hernia Continue with lifestyle modifications: no alcohol, tobacco products, Aspirin or NSAID's (ibuprofen, Motrin, Naprosyn, aleve, etc), soda pop/any carbonated beverages, caffeine (including tea & chocolate), and acidic foods, (tomatoes, citrus, onions, peppermints) spicy or fried/fatty foods. Do not lie down for 30 minutes after eating, and do not eat 2 hours prior to bedtime. Avoid wearing tight fitting clothing/ belts Follow up: Rx- protonix manometry at [facility] refer to thoracic surgery at [facility] 1. No lifting over 20 pounds or strenuous activity for the first 24 hours after your procedure. After 24 hours there are no restrictions on your activity but you may feel fatigued for a few days. 2. After you arrive home you may have a light meal and return to your normal diet as you can tolerate it without feeling sick to your stomach. 3. You may have a bloated, gaseous feeling in your belly (abdomen) after a colonoscopy. Passing gas and belching will help. Walking or lying down on your left side with your knees flexed may relieve the discomfort. Call the office at [phone] (Office) or [phone] (Hospital) right away if you notice any of the following: a.Vomiting of blood or ?coffee ground stools?. b.Rectal bleeding 1Tbsp, blood clots or continuous bleeding. c.Severe belly (abdominal) pain. d.A hard distended belly (abdomen) and an inability to pass gas. 4. Please don?t expect to have a normal BM (bowel movement) for 2-3 days after your procedure. 5. If there are questions regarding the findings of your procedure, please contact your doctor 6. If you are unable to contact your doctor with a problem, contact the hospital at [phone]. 7. Continue all your regular medications unless directed otherwise. I understand the above instructions and have no questions. Signature of Patient or Adult Escort Name of Responsible Adult Escort Signature of Nurse Date/Time Stand Alone Forms: Anesthesia Discharge Inst., Pedro Saucedo (DSU) Activity:: see above Diet:: see above Discharge Orders Discharge Orders: Discharge Order (Routine); Ordered 12/18/23 Ordered By: Edna Barron DS: Diagnosis Discharge Diagnosis (1) Hiatal hernia with GERD: Status: Acute (2) Chronic GERD: Status: Acute (3) Hematochezia: Status: Acute (4) Epigastric pain: Status: Acute (5) MCWILLIAMS (dyspnea on exertion): Status: Acute (6) WPW (Wmlkx-Bqtrfgtgy-Wdrud syndrome): Status: Acute (7) Restless leg syndrome: Status: Acute (8) Laryngopharyngeal reflux:
== END 2023-12-18 12:07 | disposition home or self-care (01) ==
PROVIDERS: PCP Family Medicine; Visit Provider Surgery
PROC: (CPT 45380; principal; 2023-12-18 08:45)
DX: K21.9 Gastro-esophageal reflux disease without esophagitis (principal); K62.1 Rectal polyp; K20.90 Esophagitis, unspecified without bleeding; K44.9 Diaphragmatic hernia without obstruction or gangrene; Z12.11 Encounter for screening for malignant neoplasm of colon
CPT/HCPCS: 45380; 43239; 81025; 88305; 71260; 74160; J2001; J2405; J2704; J3490

== ENCOUNTER → 2024-01-04 00:57 | Outpatient (CLI) | payer OTHER, SELFPAY ==
--- NOTE | 2024-01-04 06:45 | DI.RAD_ITS ---
Exam(s) RF BARIUM SWALLOW EXAM: RF BARIUM SWALLOW CLINICAL HISTORY: hiatal hernia/pre-Op,GERD,K21.9 TECHNIQUE: 2D and realtime digital imaging was performed. CONTRAST MATERIAL: Oral barium contrast was administered. COMPARISON: CR XR CHEST 2V PA LATERAL from 07/14/2018 FINDINGS: CHEST X-RAY: The heart and pulmonary vasculature are within normal limits. The lungs are clear. No pl eural effusion or pneumothorax is present. The bones are within normal limits for the patient's age. ESOPHAGRAM: The esophagus is patent with no evidence for erosions, fold thickening, strictures, or ma sses. With regards to the motility, there is a normal primary stripping wave. No tertiary contraction s were noted. There does appear to be a tiny hiatal hernia. There are 2 small diverticula seen the u pper esophagus, inferior to the upper esophageal sphincter. There less than 5 mm in size. They are located posteriorly. IMPRESSION: 1. Two small upper esophageal diverticula posteriorly. 2. Small hiatal hernia. 3. There is no gastroesophageal reflux noted during the examination. RADIATION DOSE DELIVERED: rani Maria=20.1 mGy
[2024-01-04] MEDS: Barium Sulfate 60% W/V 355 ML BTL PO (10:22)
[2024-01-04] MEDS: Barium Sulfate 98% W/W 140 ML BTL PO (10:23)
[2024-01-04] MEDS: Simethicone/Sod Bicarb/Cit Ac, 4 gram PACKET 1 PACKET PO (10:23)
== END ==
PROVIDERS: PCP Family Medicine; Visit Provider Surgery
DX: K22.5 Diverticulum of esophagus, acquired (principal)
CPT/HCPCS: 74221; J3490

== ENCOUNTER 2024-02-14 05:49 | Outpatient (CLI) | payer OTHER, SELFPAY ==
--- NOTE | 2024-02-14 11:53 | TELEFU_ITS ---
Date of service: 02/14/24 Time of Service: 11:00 Nutrition Note NOTE: Completed nutrition visit over the phone as Marlena lives in [place] and it is a far drive for this appt for her as well as has trouble getting the time away from work. 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 PMH of prediabetes (A1C of 5.8 last jul), Hiatal Hernia (had bed with head lift), IBS-C with last BM reported 3 days ago), depression, sleep disturbances, obesity. Takes MVI at home along with pantoprazole for GERD. On 01/30/24 weighed 90.718kg which results in BMI of 32.3 at 66. Weight history shows ~2kg wt loss x 1year. Elevated LDL,HDL and total chol labs in jul 2019. Pt wakes at ~4am during the week and out the door by 5:30 and states she currently hasn't been eating all day - waits to she gets home and has dinner as only meal. usually cooks and loves pasta and potatoes - she states she tries to have smalller portions of these and more salads. Big meat-eaters with venison always on hand as she and johnson. Estimates she drinks 60-90oz of water per day and also drinks Monster energy drinks, and ice drinks (flavored water) but both are zero sugar. Estimated energy needs : 1800kcals (REEx1.2AF - about 300kcals for wt loss), - 180g carbohydrates/12 CHO choices per day, ~90-130g protein (20-30% of kcals) States she cannot eat early when she wakes or she gets sick. We reviewed that h er status quo pattern of eating is not helping her goals for wt loss, GERD mgt, and avoiding diabetes. She has a very low fiber intake currently eating only one meal per day and most likely falls short of protein needs with this as well. We reviewed trying to set up a better eating pattern for meals and snacks to help manage GERD, meet her nutrition needs and keep thermic affect of food a factor in metabolism. 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 Told her she doesn't have to eat when she gets up but should aim to start eatring within 2 hours of waking to start her metabolism going and start with something small like a hard cooked egg, some walnuts, and piece of fruit. She is somewhat active and states she gets in and out of her truck all day and gets 7000 steps. applauded this but informed her >10,000 steps should be goal or current steps should be coupled with some strength exercises (Suggested googling some ideas from others who are in her line of work - what works for them?) Also suggested she might make a habit out of small activities being accomplished when she gets in and out of her vehicle often - things like body weight squats, modified lunges, etc.... Also encouraged her to keep a diet journal to reference to help identify any trigger foods for GERD symptoms as well as GI complaints. Suggested a trial of digetstive enzymes as well Time Spent in Nutritional Counseling and Treatment: 30 minutes
== END 2024-02-14 05:50 | disposition home or self-care (01) ==
LOC: DS 05:49
PROVIDERS: PCP Family Medicine; Visit Provider Dietitian, Registered
DX: E66.8 Other obesity (principal); Z68.32 Body mass index [BMI] 32.0-32.9, adult; R73.03 Prediabetes; K21.9 Gastro-esophageal reflux disease without esophagitis; K58.1 Irritable bowel syndrome with constipation; Z71.3 Dietary counseling and surveillance
CPT/HCPCS: 00123; 97802

== ENCOUNTER → 2024-02-22 01:35 | Outpatient (CLI) | payer OTHER, SELFPAY ==
[2024-02-22] MEDS: Simethicone/Sod Bicarb/Cit Ac, 4 gram PACKET 1 PACKET PO (10:27)
[2024-02-22] MEDS: Barium Sulfate 98% W/W 140 ML BTL PO (10:28)
[2024-02-22] MEDS: Barium Sulfate 60% W/V 355 ML BTL PO (10:29)
--- NOTE | 2024-02-22 10:36 | DI.RAD_ITS ---
Exam(s) RF BARIUM SWALLOW UGI EXAM: RF BARIUM SWALLOW UGI CLINICAL HISTORY: abd pain/hiatal hernia,gerd,k21.9,k44.9 TECHNIQUE: 2D and realtime digital imaging was performed. CONTRAST MATERIAL: Thick and thin barium and barium tablet were administered. COMPARISON: CR,RF RF BARIUM SWALLOW from 01/04/2024 FINDINGS: The PA and lateral chest films show normal heart size and clear lung mancera. The lateral kosher dietary service supervisor view of the neck is unremarkable. CT view of the abdomen shows a normal bowel gas pattern. Esophagus: The patient swallowed barium without difficulty. Noevidence for mucosal erosions. Nofol d thickening. No mass is visible. Nostricture. Two tiny diverticula are again noted in the upper po sterior esophagus. Motility: There is a normal primary stripping wave. No tertiary contractions were noted. There is a tiny hiatal hernia. Nogastroesophageal reflux was observed during the exam. The stomach and duodenum are unremarkable. The stomach was partially obscured by overlying small bow el. There is no delay in gastric emptying. IMPRESSION: Two tiny upper esophageal diverticula are unchanged. Tiny hiatal hernia. Stomach and duodenum are unremarkable. Fluoro time 1 minute 39 seconds RADIATION DOSE DELIVERED: Ka,r=33.5 mGy
== END ==
PROVIDERS: PCP Family Medicine; Visit Provider Surgery
DX: K21.9 Gastro-esophageal reflux disease without esophagitis (principal); K44.9 Diaphragmatic hernia without obstruction or gangrene
CPT/HCPCS: 74221; 74246; J3490

== ENCOUNTER 2024-03-23 10:09 | Emergency (ER) | payer OTHER, SELFPAY ==
[2024-03-23 10:18] VITALS: BP 164/105; PULSE 87; RESP 16; TEMP 36.8; O2SAT 99
--- NOTE | 2024-03-23 10:48 | ED.GENADUL_ITS ---
Discharge Plan Disposition Patient Disposition: Home Discharge Details Clinical Impression: Acute lumbar myofascial strain Primary Care Provider: Olinda Winter ED Provider: Meño Becerra Home Meds and New Rx's Prescriptions: New cyclobenzaprine 10 mg tablet 10 mg PO TID PRN (Reason: muscle spasm) Qty: 20 0RF diclofenac sodium 3 % gel 1 applic topical TID PRN (Reason: pain) Qty: 100 0RF Continued multivitamin [Multiple Vitamins] Tablet 1 tab PO DAILY albuterol sulfate 90 mcg/actuation HFA aerosol inhaler 2 puff IH QID PRN (Reason: shortness of breath or wheezing) Qty: 18 6RF Rx Instructions: use with aerochamber promethazine 25 mg tablet 25 mg PO Q6H PRN (Reason: Nausea) Qty: 15 0RF lubiprostone 8 mcg capsule 8 mcg PO DAILY PRN Patient Comments: TAKE 1 CAPSULE BY MOUTH DAILY FOR IRRITABLE BOWEL SYNDROME diltiazem HCl 30 mg tablet 30 mg PO PRN Patient Comments: States to be used for symptoms. pantoprazole [Protonix] 40 mg tablet,delayed release (DR/EC) 40 mg PO DAILY Qty: 90 4RF Discontinued cyclobenzaprine 5 mg tablet 5 mg PO TID PRN (Reason: muscle spasm) Qty: 10 0RF Discharge Instructions Instructions: Low Back Strain (ED), Lower Back Exercises (ED) Additional Instructions: Please continue to take [id number]-[id number] acetaminophen but do not take more than 3000 mg in a 24-hour period. Please follow-up with your primary care provider if not improving and return to the emergency department as discussed if you have any significant worsening or emergent symptoms. Please avoid heavy lifting bending and twisting type motions but very mild activity is beneficial. Stand Alone Forms: Work Release Referrals: Olinda Winter MD [Primary Care Provider] - 3 days (If not improving) HPI General Mode of arrival: ambulatory . Date/Time Provider Initiated Documentation: 03/23/24 10:27 . Limitations to Documentation: no limitations . Information obtained by: patient and RN notes reviewed . History of Present Illness 48 year old F presents to the emergency department with the chief complaint of Back pain, described as moderate and severe, Quality is described as sharp, and is localized to the back. Patient reports no radiation. Patient started experiencing this minute(s) (90) and it has been constant. Immobilization improves symptom(s), Movement worsens symptoms . Patient notes no other symptoms.. Patient did receive the following treatments prior to arrival, other (5 mg Flexeril) Related Data Home Medications Medication Instructions Recorded Confirmed albuterol sulfate 90 mcg/actuation 2 puff inhalation QID PRN 12/15/22 03/23/24 aerosol inhaler shortness of breath or wheezing #18 grams multivitamin (Multiple Vitamins 1 tab PO DAILY 07/02/23 03/23/24 tablet) promethazine 25 mg tablet 25 mg PO Q6H PRN Nausea #15 tabs 11/30/23 03/23/24 pantoprazole 40 mg tablet,delayed 40 mg PO DAILY #90 tabs 12/18/23 03/23/24 release (Protonix) lubiprostone 8 mcg capsule 8 mcg PO DAILY PRN 01/30/24 03/23/24 diltiazem HCl 30 mg tablet 30 mg PO PRN 02/20/24 03/23/24 cyclobenzaprine 10 mg tablet 10 mg PO TID PRN muscle spasm #20 03/23/24 tabs diclofenac sodium 3 % topical gel 1 applic topical TID PRN pain #100 03/23/24 grams Previous Rx's Medication Instructions Recorded albuterol sulfate 90 mcg/actuation 2 puff inhalation QID PRN 12/15/22 aerosol inhaler shortness of breath or wheezing #18 grams promethazine 25 mg tablet 25 mg PO Q6H PRN Nausea #15 tabs 11/30/23 pantoprazole 40 mg tablet,delayed 40 mg PO DAILY #90 tabs 12/18/23 release (Protonix) cyclobenzaprine 10 mg tablet 10 mg PO TID PRN muscle spasm #20 03/23/24 tabs diclofenac sodium 3 % topical gel 1 applic topical TID PRN pain #100 03/23/24 grams Allergies Allergy/AdvReac Type Severity Reaction Status Date / Time nabumetone Allergy Intermediate swelling,ra Verified 03/23/24 10:14 sh trazodone AdvReac Severe Shakiness, Verified 03/23/24 10:14 paranoia, insomnia doxycycline AdvReac Intermediate VOMITING Verified 03/23/24 10:14 hydrocodone AdvReac Intermediate VOMITING Verified 03/23/24 10:14 morphine AdvReac Intermediate vomiting Verified 03/23/24 10:14 General Stated Complaint: Nk/Back Pain MARGO: 4 Review of Systems Constitutional Constitutional: Denies chills and Denies fever(s) Cardiovascular Cardiovascular: Denies chest pain and Denies dyspnea on exertion Respiratory Respiratory: Denies cough and Denies dyspnea on exertion Gastrointestinal Gastrointestinal: Denies abdominal pain, Denies change in bowel habits, Denies diarrhea, Denies nausea and Denies vomiting Genitourinary Genitourinary: Denies urinary incontinence Musculoskeletal Musculoskeletal: Reports as per HPI and Reports back pain Neurologic Neurologic: Denies sensory deficit Exam Const General: cooperative and no acute distress Orientation: alert, awake and oriented x3 Neck Neck: normal visual inspection, full ROM and no meningeal signs Resp Effort & Inspection: normal respiratory effort Auscultation: clear to auscultation bilaterally Cardio Rate: regular rate Rhythm: regular rhythm Heart Sounds: S1 normal and S2 normal Back/Spine/Pelvis Thoracic/Lumbar Spine: pain with thoraco-lumbar ROM, paraspinal tenderness (Significant on left lumbar), thoraco-lumbar ROM limited, No thoracic spinal tenderness and lumbar spinal tenderness Pelvis: no pain with anterior-posterior compression and no pain with lateral compression Neuro General: patient alert, patient awake and patient oriented x3 DTR's: Rt Patellar: 2+, Lt Patellar: 2+, Rt Ankle: 2+ and Lt Ankle: 2+ Course Vital Signs Vital signs: Vital Signs Temperature 36.8 C 03/23/24 10:18 Pulse 87 03/23/24 10:18 Respiratory Rate 16 03/23/24 10:18 Blood Pressure 164/105 H 03/23/24 10:18 Pulse Oximetry 99 03/23/24 10:18 Temperature 36.8 C 03/23/24 10:18 Temperature Source Temporal Artery Scan 03/23/24 10:18 Pulse 87 03/23/24 10:18 Respiratory Rate 16 03/23/24 10:18 Respiratory Effort Normal, Non-Labored 03/23/24 10:22 Blood Pressure 164/105 H 03/23/24 10:18 Blood Pressure Position Sitting 03/23/24 10:18 Pulse Oximetry 99 03/23/24 10:18 Oxygen Delivery Method Room Air 03/23/24 10:18 Oxygen Flow Rate 0 03/23/24 10:18 Pain Level 10 03/23/24 10:31 Medical Decision Making Patient presenting to the emergency department for chief complaint of back pain. Patient states approximately 90 minutes prior to arrival she was leaning over trying to get some papers out of the car and felt significant pulling sensation on the left lower side of her back. Patient denies any other injury or trauma, any radiating pain into extremities, numbness tingling, bowel or bladder dysfunction. Physical exam shows significant discomfort to lower left lumbar paraspinal tissue, slight discomfort to spinal palpation but I feel this is more associated to paraspinal pain. Exam findings are consistent with lumbar strain. Patient is considered LOW risk and presentation is not consistent with for ABDOMINAL AORTIC ANEURYSM, CAUDA EQUINA SYNDROME, EPIDURAL MASS LESION, SPINAL STENOSIS, OR HERNIATED DISK CAUSING SEVERE STENOSIS, thus I consider the discharge disposition reasonable. Patient given IM ketorolac and did give her prescription for 10 mg of Flexeril. We have discussed the diagnosis and risks, and we agree with discharging home to follow-up with their primary doctor. We also discussed returning to the Emergency Department immediately if new or worsening symptoms occur. We have discussed the symptoms which are most concerning (e.g., saddle anesthesia, urinary or bowel incontinence or retention, changing or worsening pain) that necessitate immediate return. After discussion of diagnosis and plan of care patient has no further needs, questions, or concerns and states clear understanding to return to the emergency department for any worsening symptoms. This documentation was generated using [employer] dictation system, please disregard any oddities of phrase or misspellings. Quality:SDOH Health Related Social Needs: No Data to Display PFSH All Active Problems Acute lumbar myofascial strain (Acute) Hiatal hernia with GERD (Acute) Hematochezia (Acute) with constipation on CT abd 12/05/2023 at [facility] (dyspnea on exertion) (Acute) Former smoker (Acute) Chronic GERD (Acute) Irritable bowel syndrome with constipation (Acute) Depressive disorder (Acute) Migraine (Chronic) 4 / month, manages with ibuprofen Obesity (Acute) Restless leg syndrome (Acute 05/06/18) WPW (Gbksw-Cihkxiqru-Xbpoc syndrome) (Acute) s/p ablation x 2, unsuccessful. Patient was evaluated by [facility] in 2022 and determined N to have any further WPW. Atopic dermatitis (Acute) Wrist pain (Chronic) left, after h/o fracture PND (post-nasal drip) (Chronic) Presenting acutely, but Hx supports chronic issue. 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 Fasting hyperglycemia (Acute) Chronic constipation without overflow incontinence (Acute) Medical History Lung nodule 5mm and 3mm, found incidentally in 07/2020, stable 07/2021 Laryngopharyngeal reflux Right rotator cuff tendinitis (06/21/16) Right lateral epicondylitis (06/21/16) Right carpal tunnel syndrome (05/27/18) Cubital tunnel syndrome on right (06/21/16) Surgical History History of colonoscopy (~12/2023) biopsies Abnormal patient-activated cardiac event monitor Internal Senior Architect (NOT defibrillator or pacer) placed [facility] [place] 11/08/18 Left carpal tunnel syndrome (01/23/18) LEFT ECTR: 02/21/2018 Injected: 02/03/2019 Ulnar Nerve Transposition 09/2017 Ligation of fallopian tube Open Carpal Tunnel release 02/2018 (L) Endometrial Ablation Cervical Procedure ovarian cyst-right Appendectomy Family History Mother Diabetes Essential hypertension Hyperlipidemia Depression Heart disease Father , 73 Diabetes Alcohol abuse Depression Heart disease Hyperlipidemia Stroke Prostate cancer Brother Diabetes Essential hypertension Depression Hyperlipidemia Maternal Grandfather Heart disease Stroke Paternal Grandfather Diabetes Essential hypertension Heart disease Hyperlipidemia Maternal Grandmother Diabetes Heart disease Paternal Grandmother Diabetes Essential hypertension Heart disease Hyperlipidemia Maternal Aunt Breast cancer Sister No problems noted. Sister Depression Hyperlipidemia Brother Diabetes Hyperlipidemia Hypertension Daughter Depression Paternal Uncle Breast cancer Prostate cancer Paternal Aunt Melanoma Social History Smoking/Tobacco Use Status: Former Tobacco Use tobacco type: cigarettes Quit Date: 12/02/21 Pack-years: 20 Tobacco: How many years used: 30 Quit status: has quit before Second Hand Exposure: Yes Counseling given: provider counseling Smoking risk assessment performed?: Yes Alcohol Intake: current Alcohol Intake frequency: holidays/special occasions only Alcohol type: beer and hard liquor Drug use: Never Substance use type: does not use Caregiver/Support person: No Household members: spouse Housing: house Number of Children: 1 Communication Needs: None Do you need help understanding health information?: Rarely 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 [employer] Pets and animals: Yes Pets and animals: dog(s) Sexually active: No Do you think of yourself as: straight/heterosexual Current gender identity: female What is your relationship status?: How often do you talk on the phone with friends or family?: three or more times per week How often do you get together with friends or relatives?: once per week How often do you attend yazidi or religion services?: decline to answer Do you belong to any clubs or organized social groups?: no Panel score (0-1 are the most socially isolated patients): 2 What type of physical activity do you participate in: walking Duration: > 90 minutes/day Frequency: daily Tessie/Holiness: Congregational Special tessie needs: No Seatbelt use: always Helmet use: Yes Helmet use: always Drive intox or ride w/intox entry level truck driver: No Do you feel safe at home: Yes Do you feel safe in your relationship?: Yes
[2024-03-23] MEDS: Ketorolac 15 MG/ML VIAL IM (11:02)
== END 2024-03-23 11:13 | disposition home or self-care (01) ==
PROVIDERS: Emergency Provider Nurse Practitioner Family; PCP Family Medicine
DX: S39.012A Strain of muscle, fascia and tendon of lower back, initial encounter (principal); Z87.891 Personal history of nicotine dependence; X50.1XXA Overexertion from prolonged static or awkward postures, initial encounter; Y93.89 Activity, other specified; Y92.018 Other place in single-family (private) house as the place of occurrence of the external cause
CPT/HCPCS: 96372; 99284; 99283; J1885

== ENCOUNTER 2024-12-15 18:36 | Emergency (ER) | payer OTHER, SELFPAY ==
[2024-12-15] VITALS (23 sets, daily range): BP systolic 123–143; BP diastolic 71–85; PULSE 58–73; RESP 13–24; TEMP 36.7–37.1; O2SAT 95–99
--- NOTE | 2024-12-15 18:30 | RT.EKG_ITS ---
APPROVED REPORT Exam: Resting ECG Reason for Exam: chest pain Patient Location: E HR:77 bpm ECG Measurements Heart Rate 77 AXIS VA 129 P 58 QRSd 93 QRS 57 QT 384 T 256 QTc 436 Conclusion Sinus rhythm...normal P axis, V-rate 60- 99 Probable left atrial enlargement...P >50mS, <-0.10mV V1 Repol abnrm suggests ischemia, anterolateral. no ST segment or T wave abnormalities to suggest occlusive DE
[2024-12-15 19:41] LABS: Abs Immature Grans 0.01 10^3/uL (0.0-0.06); Absolute Basophil Count 0.04 10^3/uL (0.0-0.2); Absolute Eosinophil Count 0.06 10^3/uL (0.0-0.7); Absolute Lymphocyte Count 2.27 10^3/uL (1.2-3.4); Absolute Monocyte Count 0.38 10^3/uL (0.1-0.8); Absolute Neutrophil Count 3.84 10^3/uL (1.2-6.7); Basophils % 0.6 %; Eosinophils % 0.9 %; HCT 39.8 % (36.0-46.0); HGB 13.6 g/dL (11.2-15.7); Immature Grans % 0.2 %; Lymphocytes % 34.4 %; MCH 29.8 pg (27.0-33.0); MCHC 34.2 % (32.0-36.0); MCV 87 fL (80-95); MPV 10.1 fL (8.0-11.0); Monocytes % 5.8 %; Neutrophils % 58.1 %; Platelet Count 292 10^3/uL (130-400); RBC 4.56 10^6/uL (3.93-5.22); RDW 12.9 % (11.7-14.6); RDW-SD 41.1 fL
[2024-12-15 19:53] LABS: INR 1.1 (0.9-1.1); Prothrombin Time 10.7 sec (9.1-11.1)
[2024-12-15 20:07] LABS: ALT 33 U/L (14-59); AST 22 U/L (15-37); Albumin 3.8 g/dL (3.4-5.0); Alkaline Phosphatase 66 U/L (46-116); Anion Gap 6.6 mmol/L (3-11); BUN 15 mg/dL (7-18); Bilirubin, Total 0.55 mg/dL (0.2-1.0); CO2 27.4 mmol/L (21.0-32.0); CREATININE 0.9 mg/dL (0.55-1.02); Calcium 9.5 mg/dL (8.5-10.1); Chloride 107 mmol/L (98-107); Estimated GFR 79.35 (mL/min/1.73m2); Glucose 98 mg/dL (74-106); Lipase 56 U/L (<78); Magnesium 1.9 mg/dL (1.8-2.4); Potassium 3.3 mmol/L (3.5-5.1); Sodium 141 mmol/L (136-145); TSH (W/Ref FT4) 1.77 uIU/mL (0.36-3.74); Total Protein 7.3 g/dL (6.4-8.2); Troponin I 14 ng/L (<or=51)
[2024-12-15 20:08] LABS: D-Dimer 198 ng/mlFEU (<500)
[2024-12-15 20:26] LABS: COVID-19 PCR Negative (Negative); Influenza A PCR Negative (Negative); Influenza B PCR Negative (Negative); RSV PCR Negative (Negative)
[2024-12-15 20:27] LABS: Source Nasopharynx
[2024-12-15 20:55] LABS: Troponin I 14 ng/L (<or=51)
--- NOTE | 2024-12-15 22:37 | DI.RAD_ITS ---
Exam(s) XR CHEST 2V PA LATERAL EXAM: XR CHEST 2V PA LATERAL CLINICAL HISTORY: left chest pain. TECHNIQUE: 2D digital imaging was performed. COMPARISON: CR,RF RF BARIUM SWALLOW UGI from 02/22/2024 FINDINGS: 2 views: Heart size is normal. The mediastinum is not widened. Lungs are clear. No infiltrates nor pleural effusions. IMPRESSION: No acute pulmonary findings. DATA REPOSITORY: RADIATION DOSE DELIVERED:
--- NOTE | 2024-12-15 23:25 | DI.VRAD_ITS ---
PROCEDURE INFORMATION: Exam: XR Chest Exam date and time: 12/15/2024 10:34 PM Age: 49 years old Clinical indication: Other: Left chest pain TECHNIQUE: Imaging protocol: Radiologic exam of the chest. Views: 2 views. COMPARISON: CT CHEST/ABD W 12/18/2023 10:55 AM FINDINGS: Lungs: Unremarkable. No consolidation. Pleural spaces: Unremarkable. No pleural effusion. No pneumothorax. Heart/Mediastinum: Unremarkable. No cardiomegaly. Bones/joints: Unremarkable. IMPRESSION: No acute findings. Dictated and Authenticated by: Lars Bell MD. Orderin Laurence Estrella MD
[2024-12-16 01:27] VITALS: BP 139/83; PULSE 66; RESP 16; O2SAT 95
--- NOTE | 2024-12-17 16:28 | ED.GENADUL_ITS ---
Discharge Plan Disposition Patient Disposition: Home Condition: Stable Discharge Details Clinical Impression: Pleurisy, Hypokalemia, Atypical chest pain Primary Care Provider: Olinda Winter ED Provider: Delores Dang Home Meds and New Rx's Prescriptions: New potassium chloride 20 mEq tablet extended release 20 meq PO DAILY Qty: 7 0RF Continued tirzepatide 2.5 mg/0.5 mL pen injector 2.5 mg subcut QWEEK Rx Instructions: for 4 weeks atorvastatin 10 mg tablet 10 mg PO DAILY cyclobenzaprine 10 mg tablet 10 mg PO TID PRN (Reason: muscle spasm) Patient Comments: TAKE ONE TABLET BY MOUTH THREE TIMES A DAY cholecalciferol (vitamin D3) 125 mcg (5,000 unit) capsule 125 mcg PO DAILY Discharge Instructions Instructions: Pleuritic Chest Pain (DC), Pleurisy (ED) Additional Instructions: May take ibuprofen as needed for discomfort every 8 hours for the next 3 days May take a muscle relaxant tonight sleep Potassium is slightly low, take supplementation for the rest of the week Please return if you have worsening pain, shortness of breath, or should any new concerns arise I recommend following up with your doctor in 24 to 48 hours for reassessment Referrals: Olinda Winter MD [Primary Care Provider] - 1 day Discharge Data Discharge Date/Time-TO BE ENTERED AT DEPARTURE: 12/16/24 01:27 HPI General Date/Time Provider Initiated Documentation: 12/15/24 19:10 . HPI Narrative: The patient is a 49-year-old female with hx of htn, hyperlipidemia, s/p mikayla with subsequent portal vein thrombosis who presents with a report of chest pain that started 2 hours prior to coming in. She reports the onset of chest pain at rest, which radiates up her left shoulder and into her neck. She has experienced similar episodes in the past but is unsure as to the etiology of these complaints. The pain intensifies with deep breathing and movement. She does not endorse any known trauma, calf pain or swelling, recent falls, surgeries, or long drives. She does not experience shortness of breath and was able to shovel snow without any issues yesterday. The pain intensifies with deep breathing and movement. She has a cardiac history, including mild disease, with an echocardiogram in 2022 showing no evidence of acute ischemia. She does not have a history of stents and does not smoke tobacco. She underwent cardiac catheterization in February 2023, which did not reveal any acute abnormalities. Related Data Home Medications ?Medication ?Instructions ?Recorded ?Confirmed atorvastatin 10 mg tablet 10 mg PO DAILY 11/19/24 12/15/24 cholecalciferol (vitamin D3) 125 125 mcg PO DAILY 11/19/24 12/15/24 mcg (5,000 unit) capsule cyclobenzaprine 10 mg tablet 10 mg PO TID PRN muscle spasm 11/19/24 12/15/24 tirzepatide 2.5 mg/0.5 mL 2.5 mg subcut QWEEK 11/19/24 12/15/24 subcutaneous pen injector potassium chloride 20 mEq 20 meq PO DAILY #7 tabs 12/15/24 tablet,extended release Previous Rx's ?Medication ?Instructions ?Recorded potassium chloride 20 mEq 20 meq PO DAILY #7 tabs 12/15/24 tablet,extended release Allergies Allergy/AdvReac Type Severity Reaction Status Date / Time nabumetone Allergy Intermediate swelling,ra Verified 12/15/24 18:49 sh trazodone AdvReac Severe Shakiness, Verified 12/15/24 18:49 paranoia, insomnia doxycycline AdvReac Intermediate VOMITING Verified 12/15/24 18:49 hydrocodone AdvReac Intermediate VOMITING Verified 12/15/24 18:49 morphine AdvReac Intermediate vomiting Verified 12/15/24 18:49 iohexol AdvReac Mild Hives Verified 12/15/24 18:49 General Stated Complaint: Chest Pain MARGO: 3 Exam Narrative Exam Narrative: General Appearance: The patient is alert and oriented, not in acute distress. Vital signs: Within normal limits. HEENT: Within normal limits. Respiratory: The patient's lungs are clear to auscultation. Cardiovascular: The patient's heart has a regular rate and rhythm. Extremities: There is no swelling or tenderness in the patient's calves. Skin: Warm and dry, no rash. Neurological: Normal. Course Vital Signs Vital signs: Vital Signs Temperature 36.7 C 12/15/24 18:43 Pulse 73 12/15/24 18:43 Respiratory Rate 20 12/15/24 18:43 Blood Pressure 143/85 H 12/15/24 18:43 Pulse Oximetry 98 12/15/24 18:43 Temperature 37.1 C 12/15/24 22:48 Temperature Source Oral 12/15/24 18:43 Pulse 66 12/16/24 01:27 Pulse 61 12/15/24 22:20 Respiratory Rate 16 12/16/24 01:27 Respiratory Effort Normal, Non-Labored 12/15/24 19:33 Respiratory Depth Normal 12/15/24 19:33 Respiratory Pattern Normal 12/15/24 19:33 Blood Pressure 139/83 12/16/24 01:27 Blood Pressure Mean 103 12/15/24 22:47 Blood Pressure Position Sitting 12/15/24 18:43 Pulse Oximetry 95 12/16/24 01:27 Oxygen Delivery Method Room Air 12/15/24 22:48 Oxygen Flow Rate 0 12/15/24 22:48 Pain Level 8 12/15/24 19:33 Lab/Test Results Lab/Test Results: Laboratory Tests Range/Units 12/15/24 12/15/24 12/15/24 19:10 19:46 20:30 WBC (4.4-10.8) 10^3/uL 6.60 RBC (3.93-5.22) 10^6/uL 4.56 Hgb (11.2-15.7) g/dL 13.6 Hct (36.0-46.0) % 39.8 MCV (80-95) fL 87 MCH (27.0-33.0) pg 29.8 MCHC (32.0-36.0) % 34.2 RDW (11.7-14.6) % 12.9 Plt Count (130-400) 10^3/uL 292 MPV (8.0-11.0) fL 10.1 Immature Gran % % 0.2 Neutrophils % % 58.1 Lymphocytes % % 34.4 Monocytes % % 5.8 Eosinophils % % 0.9 Basophils % % 0.6 Nucleated RBC % (0.0-0.3) % 0.0 Absolute Neutrophils (1.2-6.7) 10^3/uL 3.84 Absolute Lymphocytes (1.2-3.4) 10^3/uL 2.27 Absolute Monocytes (0.1-0.8) 10^3/uL 0.38 Absolute Eosinophils (0.0-0.7) 10^3/uL 0.06 Absolute Basophils (0.0-0.2) 10^3/uL 0.04 PT (9.1-11.1) sec 10.7 INR (0.9-1.1) 1.1 D-Dimer (<500) ng/mlFEU 198 Sodium (136-145) mmol/L 141 Potassium (3.5-5.1) mmol/L 3.3 L Chloride (98-107) mmol/L 107 Carbon Dioxide (21.0-32.0) mmol/L 27.4 Anion Gap (3-11) mmol/L 6.6 BUN (7-18) mg/dL 15 Creatinine (0.55-1.02) mg/dL 0.9 Est GFR (CKD-EPI 2020) (mL/min/1.73m2) 79.35 Glucose (74-106) mg/dL 98 Calcium (8.5-10.1) mg/dL 9.5 Magnesium (1.8-2.4) mg/dL 1.9 Total Bilirubin (0.2-1.0) mg/dL 0.55 AST (15-37) U/L 22 ALT (14-59) U/L 33 Alkaline Phosphatase (46-116) U/L 66 Troponin I (<or=51) ng/L 14 14 Total Protein (6.4-8.2) g/dL 7.3 Albumin (3.4-5.0) g/dL 3.8 Lipase (<78) U/L 56 TSH (0.36-3.74) uIU/mL 1.77 COVID-19 Source Nasopharynx SARS-CoV-2 (PCR) (Negative) Negative Influenza Type A (PCR) (Negative) Negative Influenza Type B (PCR) (Negative) Negative RSV (PCR) (Negative) Negative Range/Units 12/15/24 22:32 WBC (4.4-10.8) 10^3/uL RBC (3.93-5.22) 10^6/uL Hgb (11.2-15.7) g/dL Hct (36.0-46.0) % MCV (80-95) fL MCH (27.0-33.0) pg MCHC (32.0-36.0) % RDW (11.7-14.6) % Plt Count (130-400) 10^3/uL MPV (8.0-11.0) fL Immature Gran % % Neutrophils % % Lymphocytes % % Monocytes % % Eosinophils % % Basophils % % Nucleated RBC % (0.0-0.3) % Absolute Neutrophils (1.2-6.7) 10^3/uL Absolute Lymphocytes (1.2-3.4) 10^3/uL Absolute Monocytes (0.1-0.8) 10^3/uL Absolute Eosinophils (0.0-0.7) 10^3/uL Absolute Basophils (0.0-0.2) 10^3/uL PT (9.1-11.1) sec INR (0.9-1.1) D-Dimer (<500) ng/mlFEU Sodium (136-145) mmol/L Potassium (3.5-5.1) mmol/L Chloride (98-107) mmol/L Carbon Dioxide (21.0-32.0) mmol/L Anion Gap (3-11) mmol/L BUN (7-18) mg/dL Creatinine (0.55-1.02) mg/dL Est GFR (CKD-EPI 2020) (mL/min/1.73m2) Glucose (74-106) mg/dL Calcium (8.5-10.1) mg/dL Magnesium (1.8-2.4) mg/dL Total Bilirubin (0.2-1.0) mg/dL AST (15-37) U/L ALT (14-59) U/L Alkaline Phosphatase (46-116) U/L Troponin I (<or=51) ng/L Cancelled Total Protein (6.4-8.2) g/dL Albumin (3.4-5.0) g/dL Lipase (<78) U/L TSH (0.36-3.74) uIU/mL COVID-19 Source SARS-CoV-2 (PCR) (Negative) Influenza Type A (PCR) (Negative) Influenza Type B (PCR) (Negative) RSV (PCR) (Negative) Medical Decision Making Laboratory Studies D-dimer within normal limits. Two troponins negative. Potassium level at 3.3. Imaging Chest x-ray without acute abnormality. Testing EKG without ischemia. Initial Assessment: 49-year-old female with chest pain radiating to left ronel ulder and neck, started 2 hours prior to presentation. History of mild cardiac disease, hypertension, hyperlipidemia, elevated lupus antibody, status post Mikayla fundoplication, and recent portal vein thrombosis. Differential Diagnosis: - Cardiac etiology: Considered due to history of mild cardiac disease, but EKG without ischemia, D-dimer within normal limits, and two negative troponins. Plan: Continue monitoring and supportive care. - Pleurisy: Suspected due to pain worsened with deep breathing and movement. Plan: Supportive care and ibuprofen at home. ED Course: - Ordered chest x-ray, diagnostic blood work, D-dimer, two troponins, and EKG. - EKG without ischemia. - D-dimer within normal limits. - Two troponins negative. - Chest x-ray without acute abnormality. - Mild hypokalemia at 3.3, supplemented with potassium. Final Assessment: Patient with chest pain likely due to pleurisy, supported by negative cardiac workup and reproducible pain on physical exam. Mild hypokalemia corrected. Discharged in stable condition with instructions for supportive care and low threshold for return if symptoms worsen. Clinical Impression: - Chest pain likely due to pleurisy. - Hypertension. - Hyperlipidemia. - Elevated lupus antibody. - Status post Mikayla fundoplication. - History of portal vein thrombosis. Disposition: - Discharge: Patient discharged home in stable condition. - Follow-Up: Close outpatient follow-up with primary care physician. MDM Components Evaluation: - Number of Differential Diagnoses or Management Options: Cardiac etiology, Pleurisy. - Amount and Complexity of Data Reviewed: EKG, D-dimer, troponins, chest x-ray, blood work. - Risk of Complication and Morbidity or Mortality: Low risk given negative cardiac workup and stable condition at discharge. Quality:[facility] Health Related Social Needs: No Data to Display PFSH All Active Problems (Updated 12/15/24 @ 22:39 by SABINA Lizarraga) Atypical chest pain (Acute) Hypokalemia (Acute) Pleurisy (Acute) Thyroid nodule greater than or equal to 1 cm in diameter incidentally noted on imaging study (Acute 11/2024) 1.3 x 0.8 x 1.2 cm solid hypoechoic with smooth margins. Recheck needed in 1 year. Graves disease (Acute) At risk for coronary artery disease (Acute) Hematochezia (Acute) with constipation on CT abd 12/05/2023 at [facility] (dyspnea on exertion) (Acute) Former smoker (Acute) Irritable bowel syndrome with constipation (Acute) Depressive disorder (Acute) Migraine (Chronic) 4 / month, manages with ibuprofen Obesity (Acute) Restless leg syndrome (Acute 05/06/18) WPW (Fbnkz-Whaowrfsu-Fiudz syndrome) (Acute) s/p ablation x 2, unsuccessful. Patient was evaluated by [facility] in 2022 and determined N to have any further WPW. Atopic dermatitis (Acute) Wrist pain (Chronic) left, after h/o fracture PND (post-nasal drip) (Chronic) Presenting acutely, but Hx supports chronic issue. 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 Fasting hyperglycemia (Acute) Chronic constipation without overflow incontinence (Acute) Medical History (Updated 12/15/24 @ 22:39 by SABINA Lizarraga) Hiatal hernia with GERD Chronic GERD Lung nodule 5mm and 3mm, found incidentally in 07/2020, stable 07/2021 Laryngopharyngeal reflux Right rotator cuff tendinitis (06/21/16) Right lateral epicondylitis (06/21/16) Right carpal tunnel syndrome (05/27/18) Cubital tunnel syndrome on right (06/21/16) Surgical History (Updated 07/18/24 @ 13:37 by Olinda Winter MD) History of repair of hiatal hernia (~07/11/24) [facility]- Robotic repair, Hiatal Hernia, Laparoscopic, with Mikayla Fundoplication, and Trans Abdominis Plane Block History of colonoscopy (~12/2023) biopsies Abnormal patient-activated cardiac event monitor [employer] (NOT defibrillator or pacer) placed [facility] 11/08/18 Left carpal tunnel syndrome (01/23/18) LEFT ECTR: 02/21/2018 Injected: 02/03/2019 Ulnar Nerve Transposition 09/2017 Ligation of fallopian tube Open Carpal Tunnel release 02/2018 (L) Endometrial Ablation Cervical Procedure ovarian cyst-right Appendectomy Family History Mother Diabetes Essential hypertension Hyperlipidemia Depression Heart disease Father , 73 Diabetes Alcohol abuse Depression Heart disease Hyperlipidemia Stroke Prostate cancer Brother Diabetes Essential hypertension Depression Hyperlipidemia Maternal Grandfather Heart disease Stroke Paternal Grandfather Diabetes Essential hypertension Heart disease Hyperlipidemia Maternal Grandmother Diabetes Heart disease Paternal Grandmother Diabetes Essential hypertension Heart disease Hyperlipidemia Maternal Aunt Breast cancer Sister No problems noted. Sister Depression Hyperlipidemia Brother Diabetes Hyperlipidemia Hypertension Daughter Depression Paternal Uncle Breast cancer Prostate cancer Paternal Aunt Melanoma Social History Smoking/Tobacco Use Status: Current every day Tobacco Type: cigarettes Years smoked: 32 Tobacco: How many years used: 30 Smokeless tobacco user: other (vaping) Quit status: has quit before Second Hand Exposure: Yes Counseling given: provider counseling Smoking risk assessment performed?: Yes Alcohol Intake: current Alcohol Intake frequency: holidays/special occasions only Alcohol type: beer and hard liquor Drug use: Never Substance use type: does not use Caregiver/Support person: No Household members: spouse Housing: house Number of Children: 1 Communication Needs: None Do you need help understanding health information?: Rarely 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 [employer] Pets and animals: Yes Pets and animals: dog(s) Sexually active: No Do you think of yourself as: straight/heterosexual Current gender identity: female What is your relationship status?: How often do you talk on the phone with friends or family?: three or more times per week How often do you get together with friends or relatives?: once per week How often do you attend orthodox or temple services?: decline to answer Do you belong to any clubs or organized social groups?: no Panel score (0-1 are the most socially isolated patients): 2 What type of physical activity do you participate in: walking Duration: > 90 minutes/day Frequency: daily Tessie/Jainism: Religious Special tessie needs: No Seatbelt use: always Helmet use: Yes Helmet use: always Drive intox or ride w/intox delivery driver: No Do you feel safe at home: Yes Do you feel safe in your relationship?: Yes
== END 2024-12-16 01:27 | disposition home or self-care (01) ==
PROVIDERS: Emergency Provider Physician Assistant; PCP Family Medicine
DX: R09.1 Pleurisy (principal); E87.6 Hypokalemia; R07.89 Other chest pain
CPT/HCPCS: 36415; 80053; 83690; 87637; 93005; 99285; 71046; 83735; 84443; 84484; 85025; 85379; 85610; 93010; 99284

== ENCOUNTER 2024-12-31 08:04 | Outpatient (CLI) | payer OTHER, SELFPAY ==
--- NOTE | 2024-12-31 08:00 | RT.EKG_ITS ---
APPROVED REPORT Exam: Resting ECG Reason for Exam: chest pain Patient Location: O HR:72 bpm ECG Measurements Heart Rate [address] 123 P 80 QRSd 102 QRS 50 QT 400 T 8 QTc 438 Conclusion Sinus rhythm...normal P axis, V-rate 50- 99 Abnormal R-wave progression, early transition...QRS area>0 in V2
== END 2024-12-31 08:05 | disposition home or self-care (01) ==
LOC: DI.CARD 08:05
PROVIDERS: PCP Family Medicine; Visit Provider Registered Nurse
DX: R07.9 Chest pain, unspecified (principal)
CPT/HCPCS: 93010

== ENCOUNTER 2025-01-05 00:56 | Outpatient (CLI) | payer OTHER, SELFPAY ==
--- NOTE | 2025-01-05 05:45 | ETT_ITS ---
APPROVED REPORT Exam: Exercise Treadmill Patient Location: Out-Patient Room/Bed: Stress Nurse: Janneth Ruiz RN and Lester Cardozo RN Ordering Provider:JEANNIE JO-ANN, Contact Number: BMI: 27.59 Baseline Rhythm: Sinus Rhythm. Indications: Chest Pain; Dyspnea on Exertion. Medical History Medical History: GERD; Obesity; Depression; WPW; Graves Disease; HLD; Portal Vein Thrombosis; s/p Nis sen Procedure. Per pt., pt. has a ...bulging artery somewhere in her heart, and has ...myocardial bridging. Cardiac Medications: Atorvastatin; Cyclobenzaprine; Tirzepatide. Allergies: Nabumetone; Trazodone; Doxycycline; Hydrocodone; Morphinel; Iohexol. Cardiac Risk Factors: Family Hx; HLD; CVD; Current Smoker (pt. states, I vape.); Hx of Obesity. Previous Cardiac Procedures: Cardiac Catheterization w/o Stents 2022. Pretest Chest Pain Characteristics: None. Exercise History: Physically Active. Physical Disabilities: None. Lung Sounds: Clear bilaterally throughout, anterior and posterior. Heart Sounds: S1 and S2 auscultated. Stress Test Details Test: Exercise stress testing was performed using a Jong protocol. Rest Stress HR Resting HR Supine: 68 bpm Max Heart Rate (APMHR): 173 bpm Resting HR Standin bpm Target HR (85% APMHR): 147 bpm Max HR Achieved: 158 bpm % of APMHR: 91 Recovery HR: 85 bpm HR response to stress: Normal HR response to stress. BP Resting BP Supine: 100/74 mmHg Resting BP Standin/62 mmHg Max BP: 160/60 mmHg Recovery BP: 112/60 mmHg BP response to stress: Normal blood pressure response to stress. ECG Resting ECG: Sinus Rhythm. Ectopy: None. Stress ECG: Sinus Tachycardia. ST Change: Horizontal ST depression; Downsloping ST depression. Lead(s): II, aVF, V3, V4, V5, V6. Stage: [address] Deviation: 4 mm Arrhythmia: None. Recovery ECG: Sinus Rhythm. Recovery ST Change: Horizontal ST depression; Downsloping ST depression. Lead(s): II, aVF, V3, V4, V5, V6. Recovery ST Deviation: 4 mm Recovery Arrhythmia: None. Comment: ST depressions were recovered to pt.'s baseline by the end of the stress test. Clinical Reason for Termination: Target HR Achieved; Chest pain/Anginal equivalent; Dyspnea. Stress Symptoms: Chest pain; Dyspnea. Exercise duration: 03 min55 sec Highest Stage Reached: Stage 2: 2.5 mph at 12% grade. Exercise capacity: 5.72 METs Angina Score: Exercise-Limiting Bowser Treadmill Score: -25.0 Rate Pressure Product: 54013 Stress ECG Conclusion 1. Resting electrocardiogram showed left ventricular hypertrophy by voltage 2. Patient exercised on the Jong protocol and completed a workload of 5.72 METS 3. Normal heart rate and blood pressure response to exercise. The patient achieved 91% of maximal pr edicted heart rate for age 4. The electrocardiographic portion of the test was consistent with myocardial ischemia with diffuse downsloping ST depression 5. There were no significant dysrhythmias Bowser Treadmill Score is -25.0 which is High risk. Critical Notification Critical Value: Yes Physician Notified Date: 01/05/2025 Time: 824 Physician Name: Feliberto Ruffin MD Response Time: 824 Stress Test Summary STAGE Time (mins) Speed (mph) Grade (%) HR BP SpO2 SYMPTOMS METS Supine 68 100/74 98 Pt. denies any chest pain/pressure or SOB. Standing 98 92/62 98 Pt. denies any chest pain/pressure or SOB. 1 3 1.7 10 135 98/66 Pt. c/o mild SOB. Pt. denies any chest pain/pressure. 4.5 2 6 2.5 12 148 Pt. c/o mild SOB and 7/10, acute, chest ...heaviness and pressure located sternally. Pt. denies any radiation of the chest pain/pressure. 7 1 min recovery 154 160/60 Pt. c/o 5/10, acute, chest heaviness and pressure. Pt. c/o minim al SOB. 3 min recovery 81 Pt. c/o 3/10, acute, chest heaviness and pressure. Pt. states that her SOB has resolved to baseline. 6 min recovery 76 110/60 Pt. c/o 1/10, acute, chest heaviness and pressure. Pt. denies any SOB. 9 min recovery 91 102/72 Pt. states that all chest heaviness and pressure has resolved to baseline. Pt. denies any SOB. 12 min recovery 85 112/60 15 min recovery 87 18 min recovery 83 21 min recovery: HR: 88 ; 24 min recovery: HR: 82 ; 27 min recovery: HR: 81 ; 30 min recovery: HR: 83 . Prior to starting the stress test, while pt. was lying on the stretcher, pt. denied any chest pain/pr essure or SOB. Prior to starting the stress test, while pt. ambulated from the stretcher to the tread mill, pt. denied any chest pain/pressure or SOB. During Stage 1 of exercise, pt. c/o mild SOB. Pt. de nied any chest pain/pressure. During Stage 2 of exericse, pt. c/o mild SOB and 7/10, acute, chest .. .heaviness and pressure located sternally. Pt. denied any radiation of the chest pain/pressure. Pt. achieved her target heart rate and treadmill was stopped. At one minute of recovery, pt. c/o 5/10, ac lupe, chest heaviness and pressure. Pt. c/o minimal SOB. At three minutes of recovery, pt. c/o 3/10, a cute, chest heaviness and pressure. Pt. stated that her SOB had resolved to baseline. At approximatel y 0825, RN went and spoke with the hospitalist regarding the pt.'s stress test, the pt.'s signs and s ymptoms, the pt.'s history, and to discuss what the next steps in her plan of care should be. Hospita list was informed that the pt.'s symptoms were resolving to baseline prior to the RN coming to consul t with him. Hospitalist discussed the pt. situation with the RN and decided that because the pt.'s sy mptoms were resolving to baseline and because the pt. has been experiencing these symptoms with exert ion, that it was appropriate for the pt. to be discharged to home, but that the pt. should come to [facility] ED with any return/worsening of symptoms. Hospitalist also stated that the pt. shouldn't return to work until she follows up with Cardiology. At six minutes of recovery, pt. c/o 1/10, acute, chest hea viness and pressure. Pt. denied any SOB. At nine minutes of recovery, pt. stated that all chest heavi ness and pressure had resolved to baseline. Pt. denied any SOB. At thirty minutes of recovery, pt. wa s still asymptomatic, stating that all of her symptoms were still at baseline. Nursing staff informed pt. of the discussion with the hospitalist, including their instruction to remain out of work until she follows up with Cardiology. Pt. verbalized understanding, but stated that she needed a provider n ote excusing her, otherwise she would be fired from her job. Hospitalist was notified and wrote a not e for the pt. Nursing staff obtained the note and gave it to the pt. Nursing staff informed pt. that they would also discuss the pt.'s stress test with the ordering provider and that the ordering provid er would be in touch with her this afternoon to discuss next steps in her plan of care. Pt. verbalize d understanding. Pt. was conversing pleasantly with nursing staff upon leaving the Stress Lab. Pt. le ft ambulatory in no apparent distress.
== END 2025-01-05 01:16 ==
LOC: DI 00:56
PROVIDERS: PCP Family Medicine; Visit Provider Internal Medicine Cardiovascular Disease
DX: R07.9 Chest pain, unspecified (principal); R06.09 Other forms of dyspnea
CPT/HCPCS: 93017

== ENCOUNTER 2025-09-25 11:06 | Outpatient (CLI) | payer OTHER, SELFPAY ==
[2025-09-25 12:16] LABS: Abs Immature Grans 0.01 10^3/uL (0.0-0.06); HCT 38.6 % (36.0-46.0); HGB 12.9 g/dL (11.2-15.7); Immature Grans % 0.2 %; MCH 30.2 pg (27.0-33.0); MCHC 33.4 % (32.0-36.0); MCV 90 fL (80-95); MPV 10.8 fL (8.0-11.0); Platelet Count 247 10^3/uL (130-400); RBC 4.27 10^6/uL (3.93-5.22); RDW 13.0 % (11.7-14.6); RDW-SD 42.9 fL; WBC 6.36 10^3/uL (4.4-10.8)
[2025-09-25 12:21] LABS: Lipase 34 U/L (<53)
[2025-09-25 12:25] LABS: ALT 26 U/L (10-49); AST 28 U/L (<34); Albumin 4.3 g/dL (3.4-5.0); Alkaline Phosphatase 51 U/L (46-116); Anion Gap 9.3 mmol/L (3-11); BUN 11 mg/dL (9-23); Bilirubin, Total 0.90 mg/dL (0.2-1.2); CO2 26.7 mmol/L (20.0-31.0); Calcium 9.4 mg/dL (8.3-10.6); Chloride 108 mmol/L (98-107); Glucose 87 mg/dL (74-106); Potassium 4.1 mmol/L (3.5-5.1); Sodium 144 mmol/L (136-145); Total Protein 6.9 g/dL (5.7-8.2)
== END 2025-09-25 11:07 | disposition home or self-care (01) ==
PROVIDERS: PCP Family Medicine; Visit Provider Family Medicine
DX: R10.9 Unspecified abdominal pain (principal); I81 Portal vein thrombosis
CPT/HCPCS: 36415; 80053; 83690; 85025

== ENCOUNTER 2025-09-25 12:16 | Outpatient (REF) | payer OTHER, SELFPAY ==
[2025-09-25 14:44] LABS: Glucose Negative (Negative)
== END 2025-09-25 12:17 | disposition home or self-care (01) ==
LOC: LBN 12:16
PROVIDERS: PCP Family Medicine; Visit Provider Family Medicine
DX: R10.9 Unspecified abdominal pain (principal); I81 Portal vein thrombosis
CPT/HCPCS: 81003

== ENCOUNTER 2025-09-28 05:41 | Emergency (ER) | payer OTHER, SELFPAY ==
[2025-09-28] VITALS (16 sets, daily range): BP systolic 94–113; BP diastolic 57–67; PULSE 57–93; RESP 18; TEMP 36.8; O2SAT 99–100
--- NOTE | 2025-09-28 05:50 | W.ED.GENAD ---
Discharge Plan Discharge Details Chief Complaint: Abd Prob Primary Care Provider: Olinda Winter ED Provider: Hussein Zimmer [place] Meds and New Rx's Prescriptions: No Action coenzyme Q10 [Co Q-10] 200 mg capsule 200 mg PO DAILY aspirin 81 mg tablet,delayed release (DR/EC) 81 mg PO DAILY cholecalciferol (vitamin D3) 25 mcg (1,000 unit) capsule 25 mcg PO DAILY atorvastatin 40 mg tablet 40 mg PO DAILY diphenhydramine HCl 50 mg tablet 50 mg PO ONCE Qty: 1 0RF Rx Instructions: Diphenhydramine (Benadryl)?50mg by mouth 1 hour prior to contrast injection. methylprednisolone [Medrol] 16 mg tablet See Rx Instructions PO DIRECTED Qty: 4 0RF Rx Instructions: Methylprednisolone (Medrol) 32mg by mouth 12 hours and 2 hours prior to contrast injection. cyclobenzaprine 10 mg tablet 10 mg PO TID PRN (Reason: muscle spasm) Patient Comments: TAKE ONE TABLET BY MOUTH THREE TIMES A DAY tirzepatide 2.5 mg/0.5 mL pen injector 5 mg subcut QWEEK Rx Instructions: for 4 weeks sennosides [senna] 8.6 mg tablet 8.6 mg PO DAILY PRN Patient Comments: TAKE TWO TABLETS BY MOUTH DAILY NEEDED FOR CONSTIPATION HPI General Mode of arrival: ambulatory. Date/Time Provider Initiated Documentation: 09/28/25 05:50. Limitations to Documentation: no limitations. Information obtained by: patient, RN notes reviewed and old records reviewed. HPI Narrative: Patient presents to ED with lower abdominal pain that has been present since last Sunday, 1 week now. Pain has been intermittent in nature became more persistent and severe earlier this morning causing her to wake up. She had seen primary care last week and had laboratory studies done which were reassuring. CT scan had been discussed but has not been scheduled. She has had worse pain after trying to eat. She is passing a lot of gas. She is not having diarrhea. Reports that her stool is actually hard. Denies any rectal pain or pressure. Denies any urinary symptoms. She has nausea but is unable to vomit due to prior wrap done for hiatal hernia. Reports that walking for the last couple of days has caused increased pain. Denies any fever. Related Data Home Medications ?Medication ?Instructions ?Recorded ?Confirmed cyclobenzaprine 10 mg tablet 10 mg PO TID PRN muscle spasm 11/19/24 09/28/25 tirzepatide 2.5 mg/0.5 mL 5 mg subcut QWEEK 12/31/24 09/28/25 subcutaneous pen injector aspirin 81 mg tablet,delayed 81 mg PO DAILY 01/13/25 09/28/25 release cholecalciferol (vitamin D3) 25 25 mcg PO DAILY 01/13/25 09/28/25 mcg (1,000 unit) capsule atorvastatin 40 mg tablet 40 mg PO DAILY 01/23/25 09/28/25 coenzyme Q10 200 mg capsule (Co 200 mg PO DAILY 07/22/25 09/28/25 Q-10) diphenhydramine HCl 50 mg tablet 50 mg PO ONCE premedication for 09/25/25 09/28/25 contrast image study #1 tab methylprednisolone 16 mg tablet See Rx Instructions PO DIRECTED 09/25/25 09/28/25 (Medrol) premedication for contrast image study #4 tabs sennosides 8.6 mg tablet (senna) 8.6 mg PO DAILY PRN 09/28/25 09/28/25 Previous Rx's ?Medication ?Instructions ?Recorded diphenhydramine HCl 50 mg tablet 50 mg PO ONCE premedication for 09/25/25 contrast image study #1 tab methylprednisolone 16 mg tablet See Rx Instructions PO DIRECTED 09/25/25 (Medrol) premedication for contrast image study #4 tabs Allergies Allergy/AdvReac Type Severity Reaction Status Date / Time nabumetone Allergy Intermediate swelling,ra Verified 09/25/25 10:33 sh trazodone AdvReac Severe Shakiness, Verified 09/25/25 10:33 paranoia, insomnia doxycycline AdvReac Intermediate VOMITING Verified 09/25/25 10:33 hydrocodone AdvReac Intermediate VOMITING Verified 09/25/25 10:33 morphine AdvReac Intermediate vomiting Verified 09/25/25 10:33 iohexol AdvReac Mild Hives Verified 09/25/25 10:33 General MARGO: 3 Exam Narrative Exam Narrative: Const: WDWN female in NAD. VS per triage. HEENT: NC/AT. Normal facial exam. Neck: Supple. Trachea midline. Lungs: Normal respiratory effort. Lungs are clear. Cor: RRR without murmur. Good radial pulses. GI: Soft/ND. Tender with some voluntary guarding just below the umbilicus and over toward the right side. No suprapubic tenderness. Neuro: A+O x 3. Normal speech, mentation, gait. Cranial nerves II - XII grossly intact. No gross motor or sensory deficit. Ext: No C/C/E. Medical Decision Making Patient presenting to ED with worsening lower abdominal pain over the last week. Pain is worse with eating or with walking. She is passing a lot of gas but has not had any diarrhea. She has had previous hiatal hernia repair with a wrap, appendectomy, tubal ligation. She is tender just below the umbilicus and off to the right. Labs from last week unremarkable including a urinalysis. He does not have any urinary symptoms. Differential includes diverticulitis, bowel obstruction, obstipation among others. She has iohexol listed as an allergy. Patient, however, does not feel this is likely. She has had many CT scans with contrast in the past. She had one scan in the past that caused her to sneeze and scratch her neck with radiology citing that event as evidence of allergy. Will pretreat with diphenhydramine but will hold off on steroids as this does not really seem consistent with an allergic reaction, especially if she has had multiple previous scans before then without reactions. She does have problems with narcotics causing nausea and vomiting. Will therefore treat with IV acetaminophen and fluids. Laboratory studies and CT scan ordered. 07:00 - Patient laboratory studies remained essentially normal. She has a little alkalosis on VBG. She has normal CBC, lactic acid, CMP and lipase. CT scan is pending. Patient will be signed out to oncoming ED physician, Dr. Perkins. Medical Records Medical records reviewed: Yes I reviewed the patient's medical records. Medical records narrative: outpatient visit and labs from last week Lab Data Lab results reviewed: Yes I reviewed the patient's lab results. PFSH All Active Problems Chest pain (Chronic) CTA chest at [facility] with coronary calcium score of 0 Thyroid nodule greater than or equal to 1 cm in diameter incidentally noted on imaging study (Chronic 11/2024) 1.3 x 0.8 x 1.2 cm solid hypoechoic with smooth margins. Recheck needed in 1 year at [facility]. Elev TSH in 11/2024, resolved on its own in Dec. Migraine (Chronic) 4 / month, manages with ibuprofen Restless leg syndrome (Acute 05/06/18) WPW (Jpyad-Ntwodbfce-Czazt syndrome) (Acute) s/p ablation x 2, unsuccessful. Patient was evaluated by [facility] in 2022 and determined N to have any further WPW. Atopic dermatitis (Acute) Wrist pain (Chronic) left, after h/o fracture PND (post-nasal drip) (Chronic) Presenting acutely, but Hx supports chronic issue. 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 Low-dose anticoagulation to prevent thrombosis and risk settings in the future such as surgery trauma hospital stay or immobility recommended extended prophylaxis duration per [facility] hematology. Hematochezia with constipation on CT abd 12/05/[address] [facility] ED Former smoker age 44 in 2019; 15 packyr hx Irritable bowel syndrome with constipation Depressive disorder Hiatal hernia with GERD Chronic GERD Lung nodule 5mm and 3mm, found incidentally in 07/2020, stable 07/2021 Laryngopharyngeal reflux Right rotator cuff tendinitis (06/21/16) Right lateral epicondylitis (06/21/16) Right carpal tunnel syndrome (05/27/18) Cubital tunnel syndrome on right (06/21/16) Surgical History History of repair of hiatal hernia (~07/11/24) [facility]- Robotic repair, Hiatal Hernia, Laparoscopic, with Mikayla Fundoplication, and Trans Abdominis Plane Block History of colonoscopy (~12/2023) biopsies Abnormal patient-activated cardiac event monitor Internal Works Manager (NOT defibrillator or pacer) placed [facility] 11/08/18 Left carpal tunnel syndrome (01/23/18) LEFT ECTR: 02/21/2018 Injected: 02/03/2019 Ulnar Nerve Transposition 09/2017 Ligation of fallopian tube Open Carpal Tunnel release 02/2018 (L) Endometrial Ablation Cervical Procedure ovarian cyst-right Appendectomy Family History Mother Diabetes Essential hypertension Hyperlipidemia Depression Heart disease Father , 73 Diabetes Alcohol abuse Depression Heart disease Hyperlipidemia Stroke Prostate cancer Brother Diabetes Essential hypertension Depression Hyperlipidemia Maternal Grandfather Heart disease Stroke Paternal Grandfather Diabetes Essential hypertension Heart disease Hyperlipidemia Maternal Grandmother Diabetes Heart disease Paternal Grandmother Diabetes Essential hypertension Heart disease Hyperlipidemia Maternal Aunt Breast cancer Sister No problems noted. Sister Depression Hyperlipidemia Brother Diabetes Hyperlipidemia Hypertension Daughter Depression Paternal Uncle Breast cancer Prostate cancer Paternal Aunt Melanoma Social History Smoking/Tobacco Use Status: Former Tobacco Use tobacco type: cigarettes Quit Date: 12/02/21 Pack-years: 20 Tobacco: How many years used: 30 Smokeless tobacco user: chewing tobacco, snuff, snus, dissolvable tobacco and other Quit status: has quit before Second Hand Exposure: Yes Counseling given: provider counseling Smoking risk assessment performed?: Yes Alcohol Intake: current Alcohol Intake frequency: holidays/special occasions only Alcohol type: beer and hard liquor Drug use: Never Substance use type: does not use Details: Pt reports currently vaping. 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 [employer] Pets and animals: Yes Pets and animals: dog(s) Sexually active: No Do you think of yourself as: straight/heterosexual Current gender identity: female What is your relationship status?: How often do you talk on the phone with friends or family?: three or more times per week How often do you get together with friends or relatives?: once per week How often do you attend hoahaoism or rastafarian services?: decline to answer Do you belong to any clubs or organized social groups?: no Panel score (0-1 are the most socially isolated patients): 2 What type of physical activity do you participate in: walking Duration: > 90 minutes/day Frequency: daily Tessie/Advent: [employer]ondoism Special tessie needs: No Seatbelt use: always Helmet use: Yes Helmet use: always Drive intox or ride w/intox entry level truck driver: No Do you feel safe at home: Yes Do you feel safe in your relationship?: Yes
--- NOTE | 2025-09-28 06:15 | DI.CT_ITS ---
Exam(s) CT ABDOMEN PELVIS W EXAM: CT ABDOMEN PELVIS W CLINICAL HISTORY: low abd pain/tenderness worsening over week TECHNIQUE: Imaging Protocol: Axial computed tomography images with coronal and sagittal reformatted images were created and reviewed. CONTRAST MATERIAL: Intravenous: Omnipaque 350 Contrast volume:75 mL Oral: No COMPARISON: CT RENAL COLIC WO CONTRAST from 06/09/2014 FINDINGS: ABDOMEN: Lung Bases: No acute abnormality. Liver: Normal density. The left lobe of the liver is severely atrophic versus resected. Please correlate with patient's clinical history. There is no suspicious hepatic mass. Portal, Superior Mesenteric, and Splenic Veins: Unremarkable. Gallbladder and Biliary Tract: No radiodense calculus or dilation. Pancreas: Normal density, no abnormal calcifications or inflammatory process. Spleen: Normal. Adrenals: No masses seen. Kidneys: Normal size, contour and axis. No radiodense stones or obstructive uropathy. No masses seen. Abdominal Aorta: Abdominal portion non-dilated. Atherosclerotic calcification is present. Bowel: No obstruction or bowel wall thickening. There is no evidence of an appendicitis. There is no evidence of pneumatosis. Peritoneal Cavity: There is a trace amount of free fluid in the pelvis. This is likely physiologic. No free air. Lymph Nodes: Within normal limits. Bones: Within normal limits for the patient's age. Soft Tissues: Unremarkable. PELVIS: Bladder: Symmetric distention, no gross wall thickening. Reproductive Organs: The uterus has a lobulated appearance suggesting underlying uterine fibroids. There is a 2.2 cm right corpus luteal cyst. There are left ovarian cysts present. The largest measures 2.5 cm. Lymph Nodes: Within normal limits. Bones: Within normal limits for the patient's age. IMPRESSION: 1. Bilateral ovarian cysts including a 2.2 cm right corpus luteal cyst. 2. Trace amount of free fluid in the cul-de-sac which is likely physiologic. 3. No evidence of appendicitis. 4. The preliminary [facility] report was reviewed. RADIATION DOSE DELIVERED: 419.87mGy.cm Total DLP DATA REPOSITORY: All CT scans at this facility are submitted to the National Radiology Data Registry (NRDR) Dose Index Registry (DIR) with the [employer] (ACR). RADIATION OPTIMIZATION: All CT scans at this facility use at least one of these dose optimization techniques: automated exposure control; mA and/or kV adjustment per patient size (includes targeted exams where dose is matched to clinical indication); or iterative reconstruction.
[2025-09-28 06:39] LABS: Abs Immature Grans 0.01 10^3/uL (0.0-0.06); HCT 41.1 % (36.0-46.0); HGB 13.9 g/dL (11.2-15.7); Immature Grans % 0.2 %; MCH 30.0 pg (27.0-33.0); MCHC 33.8 % (32.0-36.0); MCV 89 fL (80-95); MPV 11.0 fL (8.0-11.0); Platelet Count 246 10^3/uL (130-400); RBC 4.63 10^6/uL (3.93-5.22); RDW 13.1 % (11.7-14.6); RDW-SD 42.5 fL; WBC 4.53 10^3/uL (4.4-10.8)
[2025-09-28 06:43] LABS: BE (Venous) -1 mmol/L (-2-3); HCO3 (Venous) 24 mmol/L (23-28); O2 Sat (Venous) 63 %; TCO2 (Venous) 21 mmol/L (24-29); pCO2 (Venous) 36 mmHg (41-51); pO2 (Venous) 32 mmHg
[2025-09-28] MEDS: ACETAMINOPHEN 1,000 MG/100 ML BAG 400 MG IVPB (06:45)
[2025-09-28] MEDS: Normal Saline 1,000 ML 1000 ML IV (06:45)
[2025-09-28] MEDS: diphenhydrAMINE 50 MG/ML VIAL IVP (06:45)
[2025-09-28 06:54] LABS: Lipase 39 U/L (<53)
[2025-09-28 06:57] LABS: ALT 29 U/L (10-49); AST 26 U/L (<34); Albumin 4.4 g/dL (3.4-5.0); Alkaline Phosphatase 53 U/L (46-116); Anion Gap 8.9 mmol/L (3-11); BUN 16 mg/dL (9-23); Bilirubin, Total 1.00 mg/dL (0.2-1.2); CO2 25.1 mmol/L (20.0-31.0); Calcium 9.2 mg/dL (8.3-10.6); Chloride 107 mmol/L (98-107); Glucose 98 mg/dL (74-106); Potassium 3.9 mmol/L (3.5-5.1); Sodium 141 mmol/L (136-145); Total Protein 7.3 g/dL (5.7-8.2)
[2025-09-28 06:59] LABS: HCG Qual (Serum) Negative
[2025-09-28] MEDS: Omnipaque 350 MG/ML 100 ML BTL IJ (07:28)
[2025-09-28] MEDS: Normal Saline - Diluent 50 ML VIAL IJ (07:28)
--- NOTE | 2025-09-28 08:12 | DI.[facility]_ITS ---
PROCEDURE INFORMATION: Exam: CT Abdomen And Pelvis With Contrast Exam date and time: 09/28/2025 7:16 AM Age: 49 years old Clinical indication: Abdominal pain; Localized; Lower; Low abd pain/tenderness worsening over week TECHNIQUE: Imaging protocol: Computed tomography of the abdomen and pelvis with contrast. COMPARISON: CT CHEST/ABD W 12/18/2023 10:55 AM FINDINGS: Liver: Normal. No mass. Gallbladder and biliary ducts: Normal. No calcified stones. No ductal dilation. Pancreas: Normal. No ductal dilation. Spleen: Normal. No splenomegaly. Adrenal glands: Normal. No mass. Kidneys and ureters: Normal. No hydronephrosis. Stomach and bowel: Unremarkable. No obstruction. No mucosal thickening. Appendix: No evidence of appendicitis. Intraperitoneal space: Small amount of free fluid in the cul-de-sac. Vasculature: Atherosclerotic plaque of the abdominal vasculature Lymph nodes: Unremarkable. No enlarged lymph nodes. Urinary bladder: Unremarkable as visualized. Reproductive: Cystic lesions in both ovaries. Bones/joints: Unremarkable. No acute fracture. Soft tissues: Unremarkable. IMPRESSION: Cystic change in both ovaries. Small amount of free fluid in the cul-de-sac. Dictated and Authenticated by: Gunjan Camp MD. Orderin Goran Savage MD
--- NOTE | 2025-09-28 08:48 | W.EDPROG ---
Date of service: 09/28/25 Time of Service: 08:48 Medical Decision Making 8:51 -- Care was signed out by Dr. Zimmer, please see his documentation regarding initial ED presentation and course. Plan at signout is to follow-up on CT imaging. Labs reviewed and nondiagnostic. CT of the abdomen pelvis was interpreted by radiology: ABDOMEN: Lung Bases: No acute abnormality. Liver: Normal density. The left lobe of the liver is severely atrophic versus resected. Please correlate with patient's clinical history. There is no suspicious hepatic mass. Portal, Superior Mesenteric, and Splenic Veins: Unremarkable. Gallbladder and Biliary Tract: No radiodense calculus or dilation. Pancreas: Normal density, no abnormal calcifications or inflammatory process. Spleen: Normal. Adrenals: No masses seen. Kidneys: Normal size, contour and axis. No radiodense stones or obstructive uropathy. No masses seen. Abdominal Aorta: Abdominal portion non-dilated. Atherosclerotic calcification is present. Bowel: No obstruction or bowel wall thickening. There is no evidence of an appendicitis. There is no evidence of pneumatosis. Peritoneal Cavity: There is a trace amount of free fluid in the pelvis. This is likely physiologic. No free air. Lymph Nodes: Within normal limits. Bones: Within normal limits for the patient's age. Soft Tissues: Unremarkable. PELVIS: Bladder: Symmetric distention, no gross wall thickening. Reproductive Organs: The uterus has a lobulated appearance suggesting underlying uterine fibroids. There is a 2.2 cm right corpus luteal cyst. There are left ovarian cysts present. The largest measures 2.5 cm. Lymph Nodes: Within normal limits. Bones: Within normal limits for the patient's age. 1. Bilateral ovarian cysts including a 2.2 cm right corpus luteal cyst. 2. Trace amount of free fluid in the cul-de-sac which is likely physiologic. 3. No evidence of appendicitis. 4. The preliminary [facility] report was reviewed. Patient reassessed. She continues to have some discomfort in lower abdomen. Urinalysis was - 09/25/2025. Plan to check re check urinalysis. 935 --urinalysis negative. Patient reassessed. Reviewed results. No peritoneal findings. Plan for discharge with close outpatient follow-up with PCP for reassessment. Lab Data Lab results reviewed: Yes I reviewed the patient's lab results. Discharge Plan Disposition Patient Disposition: Home Condition: Stable Discharge Details Clinical Impression: Abdominal pain, Ovarian cyst Primary Care Provider: Olinda Winter ED Provider: Riccardo Perkins Home Meds and New Rx's Prescriptions: Continued coenzyme Q10 [Co Q-10] 200 mg capsule 200 mg PO DAILY cholecalciferol (vitamin D3) 25 mcg (1,000 unit) capsule 25 mcg PO DAILY atorvastatin 40 mg tablet 40 mg PO DAILY cyclobenzaprine 10 mg tablet 10 mg PO TID PRN (Reason: muscle spasm) Patient Comments: TAKE ONE TABLET BY MOUTH THREE TIMES A DAY tirzepatide 2.5 mg/0.5 mL pen injector 5 mg subcut QWEEK Rx Instructions: for 4 weeks sennosides [senna] 8.6 mg tablet 8.6 mg PO DAILY PRN Patient Comments: TAKE TWO TABLETS BY MOUTH DAILY NEEDED FOR CONSTIPATION No Action aspirin 81 mg tablet,delayed release (DR/EC) 81 mg PO DAILY Qty: 100 3RF Discharge Instructions Instructions: Abdominal Pain, Adult ED Additional Instructions: Allow for bowel rest over the next few days: Maintain a clear liquid diet today. Advance to bland soft foods tomorrow. Advance slowly thereafter. Please follow-up with your primary care physician. Return to the emergency department immediately for any worsening or new concerning symptoms. Stand Alone Forms: Portal Information, Work Release Referrals: Olinda Winter MD [Primary Care Provider, Medicine] Discharge Data Discharge Date/Time-TO BE ENTERED AT DEPARTURE: 09/28/25 09:59
[2025-09-28 09:19] LABS: Glucose Negative (Negative)
[2025-09-28 09:31] LABS: RBC Negative HPF (0-2)
== END 2025-09-28 09:59 | disposition home or self-care (01) ==
PROVIDERS: Emergency Medicine; Emergency Provider Student in an Organized Health Care Education/Training Program; PCP Family Medicine
DX: R10.30 Lower abdominal pain, unspecified (principal); N83.201 Unspecified ovarian cyst, right side; N83.202 Unspecified ovarian cyst, left side
CPT/HCPCS: 00123; 36415; 80053; 82805; 83690; 96361; 96374; 96375; 99285; 74177; 81003; 81015; 83605; 84703; 85025; 99284; J0131; J1200; J3490

== ENCOUNTER 2025-10-02 11:30 | Outpatient (REF) | payer OTHER, SELFPAY ==
[2025-10-05 14:52] LABS: Helicobacter pylori Ag, Feces Negative (Negative)
== END 2025-10-02 11:31 | disposition home or self-care (01) ==
LOC: LBN 11:30
PROVIDERS: PCP Family Medicine; Visit Provider Family Medicine
DX: R10.9 Unspecified abdominal pain (principal)
CPT/HCPCS: 87338

== ENCOUNTER 2025-10-28 08:00 | Day surgery (SDC) | payer OTHER, SELFPAY ==
[2025-10-28 08:10] VITALS: BP 105/68; PULSE 56; RESP 16; TEMP 36.2; O2SAT 100
[2025-10-28] MEDS: Lactated Ringers 1,000 ML 80 ML IV (08:28)
--- NOTE | 2025-10-28 08:46 | W.ANESPRE ---
General Info Date of Service Date Performed: 10/28/25 Height: 5 ft 6 in Weight: 60.9 kg Body Mass Index (BMI): 21.7 Surgical Procedure: Operation Date: 10/28/25 09:35 Proposed Procedure Side Surgeon p Gastroscopy Bebe Washington MD Meds Allergies and Home Medications Allergies Allergy/AdvReac Type Severity Reaction Status Date / Time nabumetone Allergy Intermediate swelling,ra Verified 10/28/25 08:28 sh trazodone AdvReac Severe Shakiness, Verified 10/28/25 08:28 paranoia, insomnia doxycycline AdvReac Intermediate VOMITING Verified 10/28/25 08:28 hydrocodone AdvReac Intermediate VOMITING Verified 10/28/25 08:28 morphine AdvReac Intermediate vomiting Verified 10/28/25 08:28 iohexol AdvReac Mild Hives Verified 10/28/25 08:28 Home Medication ?Medication ?Instructions ?Recorded cyclobenzaprine 10 mg tablet 10 mg PO TID PRN muscle spasm 11/19/24 cholecalciferol (vitamin D3) 25 25 mcg PO DAILY 01/13/25 mcg (1,000 unit) capsule atorvastatin 40 mg tablet 40 mg PO DAILY 01/23/25 coenzyme Q10 200 mg capsule (Co 200 mg PO DAILY 07/22/25 Q-10) sennosides 8.6 mg tablet (senna) 8.6 mg PO DAILY PRN 09/28/25 aspirin 81 mg tablet,delayed 81 mg PO DAILY #100 tabs 10/02/25 release calcium carbonate (Antacid 200 mg PO DAILY 10/28/25 (calcium carbonate)) Current Visit Medications: Current Medications Generic Name Dose Route Start Last Admin Trade Name Freq PRN Reason Stop Dose Admin Ringer's Solution 1,000 mls @ 80 mls/hr 10/28/25 06:00 IV 10/28/25 23:59 INFUSION VENITA Sodium Chloride 0 ml 10/28/25 06:00 Normal Saline Flush 10 Ml Syr IV 10/28/25 23:59 PRN PRN Sodium Chloride 0 ml 10/28/25 06:00 Normal Saline 10 Ml Vial IJ 10/28/25 23:59 DIRECTED PRN Sterile Water 0 ml 10/28/25 06:00 Water,Injection,Sterile 10 Ml Vial IJ 10/28/25 23:59 DIRECTED PRN PFSH Active Problems Active Problems: Problem Status Onset Code Abnormal liver diagnostic imaging Acute R93.2 Uterine fibroid Acute D25.9 Ovarian cyst Acute N83.209 Abdominal pain Acute R10.9 Chest pain Chronic R07.9 Thyroid nodule greater than or equal to 1 cm in diameter incidentally noted on imaging study Chronic 11/2024 E04.1 Migraine Chronic G43.909 Restless leg syndrome Acute 18 G25.81 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 Low-dose anticoagulation to prevent thrombosis and risk settings in the future such as surgery trauma hospital stay or immobility recommended extended prophylaxis duration per [facility] hematology. Hematochezia with constipation on CT abd 12/05/2023 at [facility] Former smoker age 44 in 2020; 15 packyr hx Irritable bowel syndrome with constipation Depressive disorder Hiatal hernia with GERD Chronic GERD Lung nodule 5mm and 3mm, found incidentally in 07/2020, stable 07/2021 Laryngopharyngeal reflux Right rotator cuff tendinitis (06/21/16) Right lateral epicondylitis (06/21/16) Right carpal tunnel syndrome (05/27/18) Cubital tunnel syndrome on right (06/21/16) Surgical History Surgical History History of repair of hiatal hernia (~07/11/24) [facility]- Robotic repair, Hiatal Hernia, Laparoscopic, with Mikayla Fundoplication, and Trans Abdominis Plane Block History of colonoscopy (~12/2023) biopsies Abnormal patient-activated cardiac event monitor Internal Plan Consultant (NOT defibrillator or pacer) placed [facility] [place] 11/08/18 Left carpal tunnel syndrome (01/23/18) LEFT ECTR: 02/21/2018 Injected: 02/03/2019 Ulnar Nerve Transposition 09/2017 Ligation of fallopian tube Open Carpal Tunnel release 02/2018 (L) Endometrial Ablation Cervical Procedure ovarian cyst-right Appendectomy Tobacco Smoking/Tobacco Use Status: Former Tobacco Use Smokeless tobacco user: other Passive smoking exposure: No Second hand exposure: Yes Counseling given: provider counseling Alcohol Alcohol Intake: current Alcohol intake frequency: holidays/special occasions only Alcohol type: beer and hard liquor Substance Use Substance use: Never Substance use type: does not use Prental History History 1 Para 1 Hx # Term Pregnancies Multiple births Hx # Pregnancies Ectopic pregnancies AB induced Hx Number of Living Children 1 AB spontaneous Past Pregnancies Del. Date GA/Weeks # Preg Succ Route Wgt Sex Labor Lgth Anesthesia Location Prov Complic 02/05/00 Yes vaginal 3146.797 g Female [facility] Vital Signs and Lab Results Vital Signs Most Recent Vital Signs in EMR: Most Recent Vital Signs Temp Pulse Resp BP Pulse Ox 36.2 C L 56 L 16 105/68 100 10/28/25 08:10 10/28/25 08:10 10/28/25 08:10 10/28/25 08:10 10/28/25 08:10 Point of Care Results Point of Care Results: POC- Test(urine) Negative 10/28/25 08:37 Imaging and Studies Imaging and Studies Study information below may be from another EMR and interpreted by another provider. Please see original notes in EMR for more complete details. Stress Test Summary: 12/28: resting EKG with LVH. 7 METS, ECG consistent with WI in the inferior and anterolateral leads. Echocardiogram Summary: 07/25: mild LVH, LVEF 60%, no segmental WMA. no valve issues. Cardiac Catheterization Summary: 02/25: mild CAD, mild LAD bridging. Pulmonary Function Summary: 01/22: isolated mild diffusion defect. Anesthesia Assessment and Plan Anesthesia History Personal History: No History of Anesthesia Complications Family History: No Family History of Anesthesia Complications Exercise Tolerance Exercise Tolerance: Metabolic Equivalents>4 Pertinent Negatives Pertinent Negatives: No Symptoms of GERD, No Major Cardiovascular Symptoms or Complaints and No Major Pulmonary Symptoms or Complaints Cardiac & Pulmonary Exam Cardiac Exam: Normal S1/S2 Heart Sounds Pulmonary Exam: Clear Bilateral Breath Sounds Implantable Cardiac Device Does patient have a Pacemaker or an ICD?: No Airway Exam Known Difficult Airway: No Mallampati Class: 1 Mouth Opening: Normal (> 3cm) Thyromental Distance: Greater than 3 cm Neck Range of Motion: Full ROM Neck Circumference: Normal Teeth Condition: Normal Dentition ASA Classification ASA Score: ASA 2 Emergency Case?: No NPO Status NPO Status: NPO Clears >2 hours, Solids >8 hours Status Status: Negative HCG Anesthesia Plan Resuscitation Status: Full Code Anesthesia Technique: General Anesthesia Airway Planned: Natural Airway Monitors Used: Standard Monitors Preoperative Comments:: Increased cardiac risk discussed.
[2025-10-28 08:50] VITALS: BMI 21.7
--- NOTE | 2025-10-28 09:12 | BOWEL_PTH ---
PATIENT: Marlena Meza LOC: [facility] U#:[id number] AGE/SX: 49/F ROOM: RE10/28/[address]: Bebe Washington : 1975 BED: DIS: 10/28/2025 SPEC #: [id number] RECD: 10/28/25 12:38 STATUS: STEF RE #: [id number] LILLIE: 10/28/25 09:[address]: Bebe Washington DEPT: Surgical Specimen RECD BY: Delores Herrera ENTERED: 10/28/25 12:40 SP TYPE: Bowel OTHR DR: Oilnda Winter Tissues: 1 - BIOPSY BOWEL 2 - STOMACH BIOPSY 3 - ESOPHAGUS BIOPSY Procedures: GROSS AND MICRO LEVEL 4 Comments: [id number]
--- NOTE | 2025-10-28 09:20 | W.PM.DSUDISC ---
Date of service: 10/28/25 Discharge Plan Disposition Patient Disposition: Home Condition: Good Discharge Details Reason For Visit: Abdominal pain Attending Provider: Bebe Washington Primary Care Provider: Olinda Winter Recommendations for Follow Up Recommended tests to be ordered by follow up provider: Follow up biopsy Home Meds and New Rx's Prescriptions: Continued coenzyme Q10 [Co Q-10] 200 mg capsule 200 mg PO DAILY cholecalciferol (vitamin D3) 25 mcg (1,000 unit) capsule 25 mcg PO DAILY atorvastatin 40 mg tablet 40 mg PO DAILY cyclobenzaprine 10 mg tablet 10 mg PO TID PRN (Reason: muscle spasm) Patient Comments: TAKE ONE TABLET BY MOUTH THREE TIMES A DAY aspirin 81 mg tablet,delayed release (DR/EC) 81 mg PO DAILY Qty: 100 3RF sennosides [senna] 8.6 mg tablet 8.6 mg PO DAILY PRN Patient Comments: TAKE TWO TABLETS BY MOUTH DAILY NEEDED FOR CONSTIPATION calcium carbonate [Antacid (calcium carbonate)] 200 mg calcium (500 mg) tablet,chewable 200 mg PO DAILY Discharge Instructions Additional Instructions: Your upper endoscopy went well today. The esophagus stomach and small intestine all appeared normal. Some routine biopsies were obtained. Once the pathology returns and we have these results we will contact you regarding them. If you have any questions or concerns please contact the surgery office. 1. Do not drive, drink alcohol, operate machinery, make critical decisions, or do activities that require coordination or balance for 24 hours. 2. Go directly to the emergency room if you notice any of the following: Develop chills (warm to touch), or if you have a thermometer and your temperature is above 101 Difficulty breathing or difficultly swallowing Persistent vomiting Severe abdominal pain, other than gas cramps Severe chest pain Black, tarry stools Any bleeding ? exceeding one tablespoon 3. Call your physician if the site where your intravenous was started becomes red, swollen, painful, and warm to touch. 4. Your physician has reviewed your pre-procedure medications. Please continue to take those medications as previously ordered. You will be given specific information/education regarding any changes to your medications before leaving. Stand Alone Forms: Portal Information Activity:: Activity as Tolerated Diet:: As Tolerated Discharge Orders Discharge Orders: Discharge Order (Routine); Ordered 10/28/25 Ordered By: Bebe Washington
[2025-10-28 09:22] VITALS: BP 101/66; PULSE 62; RESP 16; TEMP 36.5; O2SAT 99
--- NOTE | 2025-10-28 09:22 | W.PM.ENDDOP ---
Date of service: 10/28/25 Time of Service: 09:22 Endoscopy Report DATE OF PROCEDURE: 10/28/25 PRE-OP DIAGNOSIS: Abdominal pain POST-OP DIAGNOSIS: same PROCEDURE: Upper endoscopy with biopsy SURGEON: Bebe Washington ANESTHESIA TYPE: General:No Airway ESTIMATED BLOOD LOSS: 1 PATHOLOGY: other (Duodenum, Antrum, GE junction ) COMPLICATIONS: None DISPOSITION: PACU INDICATIONS: Patient is a 49-year-old female who presented to the surgery clinic for evaluation for upper endoscopy given ongoing abdominal pain. She has a history of a paraesophageal hernia repair. The risks and benefits of the procedure were discussed with her and consent was obtained prior to the procedure. FINDINGS: Normal upper endoscopy. Cold forcep biopsy obtained of duodenum, antrum and GE junction. No evidence of recurrent paraesophageal hernia. PROCEDURE DESCRIPTION: After adequate sedation, the upper endoscope was inserted and advanced in the duodenum under direct visualization. The scope was withdrawn and the mucosa inspected. The duodenum appeared normal and a cold forcep biopsy was obtained. The stomach was normal with no evidence of ulcerations or erosions. ?The antrum area was biopsied and also checked for H. pylori.? Retroflexion view in the stomach was normal. At the lower esophagus Z line area, this was inspected and noted to be normal. A cold forcep biopsy of the GE junction was obtained. No evidence of Bell?s esophagus or strictures. Otherwise, the esophagus was normal. The scope was completely withdrawn from the patient. The patient tolerated the procedure well with no immediate complications.
[2025-10-28 09:49] VITALS: BP 102/71; PULSE 54; RESP 16; TEMP 36.5; O2SAT 100
--- NOTE | 2025-10-28 09:49 | W.ANESPOSTOP ---
Postoperative Evaluation Date, Time and Location Date Performed: 10/28/25 Time Performed: 09:22 Patient Location: Day Surgery Unit Vital Signs Most Recent Imported Vital Signs: Most Recent Vital Signs Temp Pulse Resp BP Pulse Ox 36.5 C 62 16 101/66 99 10/28/25 09:22 10/28/25 09:22 10/28/25 09:22 10/28/25 09:22 10/28/25 09:22 Pain Score Most Recent Pain Score: Most Recent Pain Score Pain Level 0 10/28/25 09:22 Assessment Mental Status: Awake (Alert & Oriented to Patient Baseline) Airway and Respiratory Function: Patent airway with normal (patient baseline) respiratory exam Cardiovascular Function: Hemodynamically Stable Hydration Status: Adequately Hydrated Nausea & Vomiting: No Nausea or Vomiting Pain: Pt. Denies Any Pain Peripheral Nerve Block: Patient did not receive a nerve block
== END 2025-10-28 10:00 | disposition home or self-care (01) ==
PROVIDERS: PCP Family Medicine; Visit Provider Student in an Organized Health Care Education/Training Program
PROC: 0DJ68ZZ Inspection of Stomach, Via Natural or Artificial Opening Endoscopic (ICD-10-PCS; CPT 43235; principal; 2025-10-28 09:30)
DX: R10.9 Unspecified abdominal pain (principal); Z98.890 Other specified postprocedural states; K22.89 Other specified disease of esophagus
CPT/HCPCS: 43239; 81025; 88305; J2003; J2405; J2704